=== PATIENT | male | born 1935 | race Caucasian/White ===

== ENCOUNTER → 2017-01-10 | Outpatient (CLI) | payer OTHER | LOC: BHFA 10:15 | PROVIDERS: ATTEND Physician Assistant Medical | DX: I25.810 Atherosclerosis of coronary artery bypass graft(s) without angina pectoris (principal); E78.5 Hyperlipidemia, unspecified; I10 Essential (primary) hypertension ==

== ENCOUNTER → 2017-02-09 | Outpatient (CLI) | payer OTHER | LOC: BHFA 09:00 | PROVIDERS: ATTEND Internal Medicine Cardiovascular Disease | DX: I25.10 Atherosclerotic heart disease of native coronary artery without angina pectoris (principal); R00.2 Palpitations | CPT/HCPCS: 78452; 93017; A9500; J2785 ==

== ENCOUNTER → 2017-02-15 | Outpatient (CLI) | payer OTHER | LOC: BHFA 10:45 | PROVIDERS: ATTEND Internal Medicine Cardiovascular Disease | DX: R07.9 Chest pain, unspecified (principal); R01.1 Cardiac murmur, unspecified; I10 Essential (primary) hypertension; I25.10 Atherosclerotic heart disease of native coronary artery without angina pectoris ==

== ENCOUNTER 2017-02-23 11:46 | Inpatient (IN) | payer OTHER ==
--- NOTE | 2017-02-23 16:02 | SOAPPROG ---
SOAP Progress Note Assessment/Plan: Assessment: 1.) Idiopathic Myelofibrosis, diagnosis Jan, 2017, DIPSS risk category: Intermediate, 2. Bone marrow neg. for [id number] mutation, MPL mutation and calreticulin mutation. Marrow shows significant myelofibrosis. Neg. for BCR/ ABL mutation (NOT CML). He has been started on Hydroxyurea with the intent of use of 500 mg BID until his WBC comes down to 50,000, followed by change in therapy to Ruxolitinib , which has not yet been started. His Platelet count is low at 70-80,000 and will likely stay in this range. He did initially have Hyperuricemia as part of his presentation from increased cell turnover. His anemia is secondary to this disease process, and he is feeling better, post transfusion ( ) likely from more oxygen carrying capacity to supply myocardium. He should be kept on Hydroxyurea 500 mg po BID and Allopurinol 100 mg QD His CKD is noted and may influence Cardiac work up options. Anti-platelet therapy and anti-coagulation with heparin gtt was started at [facility]. Plan: 1.) See above discussion. 2.) Our service will follow. 02/23/17 16:06 Subjective: Pablito has now been transferred today from [facility] inpatient to [facility] inpatient service for Cardiology evaluation regarding his known CAD with recent increased fatigue, JOY and substernal chest "heaviness." These symptoms have improved with his transfusion administered two days ago at [facility]. He reports feeling better today without new sx. Objective: VSS, Afebrile HEENT- pale, anicteric, no oral lesions Neck- supple, no JVD Chest- clear/hyperinflated CVS- RSR, no extra HS, normal S1, S2. ABD- BS+, soft, NT, palp Spleen tip. No ascites, nondistended EXT- without edema/petechiae/ecchymoses Labs : 02/22/17: Hgb 9.8, WBC 136,000, PLT 80, BUN/CR 28/1.7 02/21/17: Hgb 8.7 WBC 122,000 PLT 70 BUN/CR 27/1.94 ICD10 Worksheet Patient Problems: Problems Problem Status Onset NSTEMI (non-ST elevated myocardial infarction) Acute
[2017-02-23] MEDS ORDERED: ONDANSETRON DISINTEGRATING 4 MG TAB PO PRN (16:37)
[2017-02-23] MEDS ORDERED: ACETAMINOPHEN 325 MG TAB PO PRN (16:37)
[2017-02-23] MEDS ORDERED: ONDANSETRON 4 MG/2 ML VIAL IVP PRN (16:37)
--- NOTE | 2017-02-23 17:03 | GHP ---
[f rep st] HISTORY AND PHYSICAL DATE OF ADMISSION: 02/23/2017 CHIEF COMPLAINT: Chest pain. Transfer from [facility]. HISTORY OF PRESENT ILLNESS: This is an 81-year-old male who has history of coronary artery disease. He had bypass surgery just 2 years ago and had multiple stents prior to that. He presented to [facility] with 1 week of exertional chest pain. It did get better when he rested. He was transf used in mid-January and that did not seem to help his symptoms at that time. He does have a history of myeloproliferative disease, which is not CML, but his white blood count is usually in the 60s, and w hen he came in it was over 100. He is being treated. He also has history of chronic renal insuffic iency. 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 He states he did get a blood transfusion 2 days ago and the day afterward did not feel well, and that is when they d ecided to transfer him, but we did not have a bed. However, today he is feeling a lot better, he sa ys. He does not have any exertional chest pain currently. He has some mild dyspnea on exertion. N o cough, fevers or chills. REVIEW OF SYSTEMS: A 10-point review of systems was obtained and, other than as stated above, was n egative. PAST MEDICAL HISTORY: 1. Coronary artery disease, status post multiple stents and then a bypass surgery with THACKER to the LAD 2 years ago. 2. Myeloproliferative disorder, being seen by and followed by Dr. Gilbert. 3. Type 2 diabetes. 4. BPH. 5. Hyperlipidemia. 6. Hypertension. 7. Low testosterone. SOCIAL HISTORY: No smoking or alcohol. Lives with his . Lives in [place]. 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 FAMILY HISTORY: Both parents are . MEDICATIONS: Reviewed. PHYSICAL EXAM: VITAL SIGNS: Afebrile. Blood pressure is 91/52, heart rate in the 50s, oxygen satu ration 91% on room air. GENERAL: The patient is well-developed, in no apparent distress. HEENT: Nonicteric sclerae. Extraocular movements intact. Moist mucous membranes. NECK: Supple. No thyr omegaly. LUNGS: Good effort. Clear to auscultation bilaterally. CARDIOVASCULAR: Regular rate an d rhythm. Soft murmur heard best over the right upper sternal border. ABDOMEN: Positive bowel amy nds. Soft, nontender, nondistended. No hepatosplenomegaly. EXTREMITIES: No clubbing, cyanosis, o r edema. SKIN: Without rash. Dry, intact. NEUROLOGIC: Alert and oriented x3. Moving all 4 extr emities equally. PSYCHIATRIC: Normal mood and affect. LABORATORY DATA: No labs are drawn here. Labs from [facility] are from 02/21 and show a creat inine of 1.9, total bilirubin 1.3, alkaline phosphatase 218. AST and ALT are normal. Troponins hav e been flat at 0.3. I believe an echocardiogram has been done, but I cannot find the report. White blood cell count is 136,000, hemoglobin 9.8 after transfusion. ASSESSMENT: This is an 81-year-old male with possible unstable angina versus chest pain of differen t etiology. PLAN: 1. Rule out unstable angina. The patient's symptoms are a lot better with blood transfusion. His white blood cell count is quite elevated. I do wonder if there might be some effect with his cardia c circulation. He is improved today, but he did not immediately improve with his blood transfusion, so I am not sure if that was the real cause of his improvement. With that said, I agree with Cardi ology and their reluctance to do a heart catheterization considering his elevated creatinine and low platelets chronically. The plan will be to monitor him overnight. I am going to not start heparin on him, and I will have Cardiology evaluate. If he continues to improve or does not have any furth er exertional angina, would probably recommend trial at home and see. We could always do a heart ca theterization at a later time. 2. Chronic myelocytic leukemia. Oncology is following the patient. I discussed the case with Dr. Tyler. 3. Type 2 diabetes. It does not appear that he is on any medication for that. 4. Benign prostatic hypertrophy. Continue medications. 5. Admission. Patient will be admitted under full admission status. Case discussed with Cardiolog y and hospitalist at [facility]. Records from [facility] reviewed and summarized in the H PI. /[id number]/MODL
[2017-02-23] MEDS: CARVEDILOL 6.25 MG TAB PO SCH (18:03)
[2017-02-23] MEDS: HYDROXYUREA 500 MG CAP PO SCH (18:03)
[2017-02-23] MEDS: HEPARIN 5,000 UNIT/0.5 ML SYR SC SCH (20:22)
[2017-02-23] MEDS ORDERED: TAMSULOSIN HCL 0.4 MG CAP PO SCH (21:00)
[2017-02-23] MEDS ORDERED: CYANO/VITAMIN B12 1000 MCG TAB PO SCH (21:00)
[2017-02-23] MEDS ORDERED: FINASTERIDE 5 MG TAB PO SCH (21:00)
[2017-02-23] MEDS ORDERED: SPIRONOLACTONE 25 MG TAB PO SCH (21:00)
[2017-02-23] MEDS ORDERED: ROSUVASTATIN CALCIUM 20 MG TAB PO SCH (21:00)
[2017-02-23] MEDS ORDERED: ASPIRIN 81 MG CHEWABLE TAB PO SCH (21:00)
[2017-02-23] MEDS ORDERED: GABAPENTIN 400 MG CAP PO SCH (21:00)
--- NOTE | 2017-02-23 21:51 | CPEKG ---
Heart Rate: 87 RR Interval: 690 P-R Interval: 164 QRSD Interval: 88 QT Interval: 432 QTC Interval: 520 P [place]: 65 QRS [place]: -67 T Wave [place]: 107 EKG Severity - ABNORMAL ECG - EKG Impression: SINUS RHYTHM EKG Impression: INFERIOR INFARCT, OLD EKG Impression: ANTERIOR INFARCT, AGE INDETERMINATE EKG Impression: PROLONGED QT INTERVAL Electronically Signed By: Lalit Bonner 24-Feb-2017 08:59:16
[2017-02-24 04:38] LABS: ABSOLUTE NRBC COUNT 0.05 10^3/uL (0-0.01); ADD DIFF? YES; ATYPICAL LYMPHOCYTE FLAG 0 (0-99); FRAGMENT RBC FLAG 20 (0-99); HEMATOCRIT 28.1 % (40.0-51.0); HEMOGLOBIN 9.1 g/dL (13.7-17.5); LIPEMIA HEMOLYSIS FLAG 80 (0-99); MEAN CELL HEMOGLOBIN 32.7 pg (27.9-34.1); MEAN CELL HEMOGLOBIN CONCENTR. 32.4 g/dL (32.4-36.7); MEAN CELL VOLUME 101.1 fL (81.5-99.8); MEAN PLATELET VOLUME 13.1 fL (8.7-11.7); PLATELET CLUMPS FLAG 70 (0-99); PLATELET COUNT 86 10^3/uL (150-400); RED BLOOD CELL COUNT 2.78 10^6/uL (4.40-6.38)
[2017-02-24 04:51] LABS: ANION GAP 12 mEq/L (8-16); CARBON DIOXIDE 22 mEq/l (22-31); CHLORIDE 110 mEq/L (97-110); CREATININE 1.7 mg/dL (0.7-1.3); GLUCOSE 79 mg/dL (70-100); POTASSIUM 3.5 mEq/L (3.5-5.2); SODIUM 144 mEq/L (134-144)
[2017-02-24 04:52] LABS: ALANINE AMINOTRANSFERASE 38 IU/L (21-72); ALBUMIN 3.3 g/dL (3.5-5.0); ALKALINE PHOSPHATASE 224 IU/L (38-126); ASPARTATE AMINOTRANSFERASE 32 IU/L (17-59); BILIRUBIN,TOTAL 2.3 mg/dL (0.1-1.4); GLOMERULAR FILTRATION RATE 39; LEFT SHIFT FLG 300 (0-99); RED CELL DISTRIBUTION WIDTH 20.7 % (11.5-15.2); TOTAL PROTEIN 5.4 g/dL (6.3-8.2)
[2017-02-24 04:54] LABS: ADD MORPH? NO
[2017-02-24 04:55] LABS: ADD SCAN? NO
[2017-02-24 04:56] LABS: TROPONIN I 0.249 ng/mL (0-0.034)
[2017-02-24] MEDS: HEPARIN 5,000 UNIT/0.5 ML SYR SC SCH (05:32)
[2017-02-24 05:36] LABS: BILIRUBIN-CONJUGATED 0.3 mg/dL (0.0-0.5)
[2017-02-24 06:43] LABS: PLATELET ESTIMATE DECREASED (ADEQ)
[2017-02-24 06:45] LABS: MACROCYTES 2+; POLYCHROMASIA 1+
[2017-02-24 06:46] LABS: ECHINOCYTES 1+; SCHISTOCYTES 1+
[2017-02-24 07:39] VITALS: BP 111/60; PULSE 74; RESP 20; TEMP 98; O2SAT 91
[2017-02-24] MEDS: CARVEDILOL 6.25 MG TAB PO SCH (09:02)
[2017-02-24] MEDS: ALLOPURINOL 100 MG TAB PO SCH ×2 (09:02→10:58)
[2017-02-24] MEDS: HYDROXYUREA 500 MG CAP PO SCH (09:02)
--- NOTE | 2017-02-24 09:09 | SOAPPROG ---
SOAP Progress Note Assessment/Plan: Assessment/Plan: 81 yo gentleman who is a recent new pt of mine seen for leukocytosis - thought he was going to have typical CML Major underlying medical issues included CAD s/p previous CABG, diabetes, and CKD Bone marrow biopsy shows a myeloproliferative disease (90% cellularity) - been very difficult to classify due to multiple abnormalities on core biopsy BM showed 3+ reticulin fibrosis and initially favored to be primary myelofibrosis However, RECENT mutational analysis on BM this past week demonstrated CSF3R and SETBP1 mutations and he is negative for BCR-ABL, JAK2, MPL, CALR, etc 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, 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 and is not curable outside allogenic stem cell transplant which he is not a candidate for given above co-morbidities Options at this point include continuing Hydrea or possibly Vidaza or low dose cytarabine although response rates are only 15-20% Any treatment runs the risk of cytopenias and we discussed this today Hydrea, etc will be challenging as these medication will certainly drop counts and could cause more demand ischemia I am not concerned about elevated white cell count as this is a chronic leukemia and not acute leukemia; therefore, hyperleukocytosis syndrome typically does not develop unless counts >500,000 For now would like to stay on Hydrea 1000daily; cont allopurinol as well Will try to keep Hgb >9 or 10 given underlying cardiac issues Will cont to follow 02/24/17 08:57 Subjective: No acute events Feeling better today Denies CP Objective: Vital Signs Temp Pulse Resp BP Pulse Ox 36.7 C 74 20 111/60 91 L 02/24/17 07:38 02/24/17 07:38 02/24/17 07:38 02/24/17 07:38 02/24/17 07:38 Laboratory Results 02/24/17 03:45 02/24/17 03:45 02/23/17 02/24/17 02/25/17 05:59 05:59 05:59 Intake Total 600 Balance 600 Gen - NAD HEENT - anicteric CV - RRR Chest - CTA Abd - soft, NT, BS+ Spleen ~3cm below left costal margin Ext - no edema ICD10 Worksheet Patient Problems: Problems Problem Status Onset NSTEMI (non-ST elevated myocardial infarction) Acute
--- NOTE | 2017-02-24 11:44 | GCON ---
[f rep st] CONSULTATION CARDIOLOGY CONSULTATION. The patient was admitted in the hospital for chest pain, and I have been asked to do an evaluation o f him. He was having significant chest discomfort and reported to [facility] last Sunday. W hat he tells me, is that he was admitted to the hospital and then was transferred from [facility] down here. It is a little confusing, I think after being at [facility], he requested transfer here. He h as anterior chest discomfort that was a pressure-like symptom. He has had multiple stents, has had angina for years, and his angina is always a sharp discomfort, this was not the kind of discomfort h e had at this point in time. He does not have orthopnea, PND, dyspnea on exertion. He does not have pleuritic chest pain. He do es not have fever, chills, he has not had a cough, syncope, near syncope. No hot, swollen joints or major rashes. No photophobia, stiff neck. He does not have a sore throat. He has a myeloproliferative disorder and that is a very difficult situation right at this time. How ever, he feels very much like it is his myeloproliferative disease causing this pain, and he feels l bishop there is no pain here that is similar to his angina. He has talked to his oncologist, and at this point in time wants to be discharged home. He is a man who has known coronary artery disease with stenting and coronary bypass grafting. Abnor mal nuclear stress test. He has dyslipidemia. He has arrhythmias. He is followed by Dr. Gusman at [facility]. He has an enlarged thyroid. He has hypertension. He d oes not have atrial arrhythmias or ventricular arrhythmias at this time. He has cardiomyopathy. CARDIAC RISK FACTORS: Positive for known coronary artery disease, stenting, bypass surgery, with a THACKER to the LAD two years ago. Type 2 diabetes mellitus, hypertension, hyperlipidemia. He has no history of smoking, hyperuricemia or obesity. FAMILY HISTORY: He has no family history of premature coronary artery disease. SOCIAL HISTORY: He lives in [place], [place] with his . He is an active gentleman and sees Ana Lilia Gusman. He does not smoke or drink significant amounts of alcohol. REVIEW OF SYSTEMS: A 12-point review of systems is negative except as noted above. Also, one is re ferred to his attached records. He has chronic renal insufficiency. He has chronic anemia, is gett ing multiple transfusions. Among the other problems that he does have on a regular basis are benign prostatic hypertrophy. PAST HISTORY: Positive for what is looking like CML. He has a white count over 150,000, and is fol lowed by Dr. Gilbert. She does not have good medications for him right now. To drop his white cou nt, she can put him on Hydrea, but that drops his hematocrit to below 7 and he gets more angina. I have had a long discussion with her today. ALLERGIES: None noted. SURGICAL HISTORY: Surgical history includes bypass surgery, and the remainder of his surgical histo ry in the chart. PHYSICAL EXAMINATION: VITAL SIGNS: His blood pressure is 95/70, respiratory rate is 12. GENERAL: He is lying comfortably in the hospital bed. He is afebrile. NECK: Supple. CARDIOVASCULAR: S1, S2. Soft systolic murmur at the left sternal border. No diastolic murmur. PULMONARY: Rhonchi. N o rales, wheezing or dullness. ABDOMEN: Soft, nontender, without obvious masses. EXTREMITIES: Without edema, inflammation. NEUROLOGIC: Motor and sensory appear to be intact. PSY CH: No anxiety or depression. SKIN: Age related changes. RESULTS: On his nuclear imaging study of 02/09/2017, he has a large size, severe intensity, fixed, but partially reversible entire apical and anteroseptal defect, consistent with infarct with magali-in farct ischemia. Defect is 25% of the myocardium, the resting defect, stress defect increases to 52% . He has mild to moderate anterior and apical akinesis with moderately impaired thickening. Ejection fraction is 45%. He had a creatinine of 1.9. Liver function tests are normal. Troponins are negative. ASSESSMENT AND PLAN: 1. Coronary artery disease. 2. Chronic myelogenous leukemia. 3. Chest discomfort. He has coronary artery disease, and he has a good idea of what his angina is, he says this is not an amanda that he is having lately, it is because of his myeloproliferative disease. Originally, it was thought that he might have a mild dysplastic syndrome, but my understanding from talking to Oncology , is that in fact he has chronic myelogenous leukemia and he does not have a lot of good options for his treatment. His prognosis is guarded. I have talked to the patient about this and about the possibility that he could be having angina cau sing some of his trouble, however, he wants to go home now. He does not want further testing. He b elieves firmly that this is not due to angina or coronary artery disease, but the chest pain is seco ndary to his myeloproliferative disorder. I think that he probably does have some angina, we know he has significant ischemia, however, his pr ognosis is guarded. He has already had a THACKER, and he does not want to do any further workup for th is right at this time. He does want to follow up with Dr. 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 Lisa byrnes may want to try to consider doing an intervention, but also, I am sure he will talk with Maryann shin, the patient's oncologist, and they can coordinate what they would like to do. I did have a l kassie discussion with Dr. Gilbert today, and she felt like his prognosis is guarded and medical manag ement would be the best option. I certainly think that makes sense at this point in time. We will follow closely. If there are any new issues the patient can call me back. Old records have been reviewed. I discussed this case with the hospitalist as well. /[id number]/MODL
--- NOTE | 2017-02-24 15:35 | GDS ---
[f rep st] DISCHARGE SUMMARY DISCHARGE DIAGNOSES: Include: 1. Atypical CML. 2. Coronary artery disease, status post CABG. 3. Diabetes. 4. Chronic kidney disease. 5. Benign prostatic hypertrophy. 6. Hyperlipidemia. 7. Hypertension. 8. Low testosterone. HISTORY OF PRESENT ILLNESS: An 81-year-old male with a history of coronary artery disease who prese nts with chest pain. For details of the patient's initial presentation, please see the history and physical dated 02/23/2017. CONSULTATIONS: Include Oncology and Cardiology. PROCEDURES: None. HOSPITAL COURSE: 1. Chest pain. The patient has known coronary artery disease, status post CABG. The patient has C KD with an elevated creatinine. We had a coordination of consultants between Hematology/Oncology an d Cardiology. After extensive discussions about the risk of cardiac catheterization, contrast expos ure, and worsening renal function in the context of atypical CML that is not a candidate for treatme nt, the decision has been made to medically manage the patient's coronary artery disease and not pro ceed additional risk stratification or stress testing. 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 2. Atypical CML. He is being very closely followed by his oncologist, Dr. Gilbert, who at this po int with consultation and recent bone marrow has placed the patient on hydroxyurea and allopurinol t o most effectively temper progression of his disease. The patient is aware this is not a treatable condition. He will continue to follow in the outpatient setting with [facility]. DISCHARGE MEDICATIONS: Please reference med rec printed on 02/24/2017. PENDING STUDIES: At the time of this dictation are none. FOLLOWUP: Include with Dr. Espinal and Dr. Gilbert in the next 2-4 weeks. I spent greater than 30 minutes in the planning and coordination of this discharge. /[id number]/MODL
== END 2017-02-24 11:48 | disposition home or self-care (01) | DRG 313 ==
LOC: F2W 13:38 → OBSVTOIN 16:37
PROVIDERS: ADMIT Internal Medicine; ATTEND Internal Medicine
DX: R07.89 Other chest pain (principal); I25.810 Atherosclerosis of coronary artery bypass graft(s) without angina pectoris; C92.10 Chronic myeloid leukemia, BCR/ABL-positive, not having achieved remission; E11.9 Type 2 diabetes mellitus without complications; N40.0 Benign prostatic hyperplasia without lower urinary tract symptoms; Z95.5 Presence of coronary angioplasty implant and graft; I12.9 Hypertensive chronic kidney disease with stage 1 through stage 4 chronic kidney disease, or unspecified chronic kidney disease; E78.5 Hyperlipidemia, unspecified; N18.9 Chronic kidney disease, unspecified

== ENCOUNTER 2017-03-06 12:47 | Inpatient (IN) | payer OTHER ==
[2017-03-06] MEDS ORDERED: ASPIRIN 81 MG CHEWABLE TAB PO ONE (12:56)
[2017-03-06] MEDS ORDERED: NS 500 ML IV ONE (12:56)
[2017-03-06] MEDS ORDERED: NITROGLYCERIN 0.4 MG BTL SL PRN ×2 (12:56→15:15)
--- NOTE | 2017-03-06 13:06 | CPEKG ---
Heart Rate: 95 RR Interval: 632 P-R Interval: 172 QRSD Interval: 80 QT Interval: 360 QTC Interval: 453 P [place]: 61 QRS [place]: -74 T Wave [place]: 100 EKG Severity - ABNORMAL ECG - EKG Impression: SINUS RHYTHM EKG Impression: INFERIOR INFARCT, OLD EKG Impression: ANTERIOR INFARCT, OLD Electronically Signed By: Piyush Golden 06-Mar-2017 22:05:45
--- NOTE | 2017-03-06 13:10 | EDPHY ---
H & P Stated Complaint: Chest Pain x 3 Months HPI/ROS: HPI CHIEF COMPLAINT: Chest Pain HISTORY OF PRESENT ILLNESS: This patient very pleasant 81-year-old male, significant past medical history for new diagnosis of atypical CML, coronary artery disease, bypass surgery, hypertension, hyperlipidemia takes a baby aspirin each day. Presents emergency room with chest pressure something sitting on his chest for the past 24-48 hours. It has gotten worse. He went to [facility] today and had a blood draw and was told to go the emergency room for chest pressure and something sitting on his chest. He has had this intermittently however worse over the last 48 hours. Denies shortness of breath, denies pleuritic pain, denies hemoptysis. Currently upon arrival he does tell me there is a weight sitting on the center of his chest and chest pressure. He denies nausea, diaphoresis, vomiting, numbness or tingling, focal weakness, headache. Denies back pain. Neck pain. Dr. 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 Exam Constitutional appears well nontoxic, triage nursing summary reviewed, vital signs reviewed, awake/alert. Eyes normal conjunctivae and sclera, EOMI, PERRLA. HENT normal inspection, atraumatic, moist mucus membranes, no epistaxis, neck supple/ no meningismus, no raccoon eyes. Respiratory clear to auscultation bilaterally, normal breath sounds, no respiratory distress, no wheezing. Cardiovascular rate normal, regular rhythm, no murmur, no edema, distal pulses normal. Gastrointestinal soft, non-tender, no rebound, no guarding, normal bowel sounds, no distension, no pulsatile mass. Genitourinary no CVA tenderness. Musculoskeletal no midline vertebral tenderness, full range of motion, no calf swelling, no tenderness of extremities, no meningismus, good pulses, neurovascularly intact. Skin pink, warm, & dry, no rash, skin atraumatic. Neurologic awake, alert and oriented x 3, AAOx3, moves all 4 extremities equally, motor intact, sensory intact, CN II-XII intact, normal cerebellar, normal vision, normal speech. Psychiatric normal mood/affect. Heme/Lymph/Immune no lymphadenopathy. 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 Full-dose aspirin given nitroglycerin to see if this improves his chest discomfort. Chest x-ray. Re-evaluation: EKG interpretation by me on record in [email or web address] system. Impression time of EKG 1304, this is sinus rhythm rate of 95, noted Q-waves inferior leads to 3 AVF , noted Q-waves V1 V2 V3. T-wave inversion in aVL. Otherwise no acute ST elevation KS. This is similar morphology to the EKG dated 07/27/2014 however it is changed from morphology 07/28/2014 where on his EKG 07/28/2014 it significant T -wave abnormalities in the anterior chest leads. ED x-ray chest one view: Negative for acute cardiopulmonary disease. Image interpreted by myself. 1359: Is no this patient has an elevated troponin and extremely high BNP that is an acute change from his previous blood work. It Is also noted he has CML. He is at risk for pulmonary embolism. It is possible a pulmonary embolism is causing elevated BNP and troponin media. However unable to obtain a CT angiogram of his chest this time due to his creatinine. He may need a V/Q scan. I specifically asked the hospitalist service that they would like me to heparinize her Lovenox him however at this [place] [id number] so I do not feel that he needs heparin. His creatinine is 1.7. Contraindication to Lovenox. He did receive full-dose aspirin here. Nitroglycerin. The nitroglycerin did not help with his chest pressure. Morphine did improve his pain. I did update the family as well as the patient that he needs to be admitted. Chest x-ray been reviewed and does not show overt failure. Plan for hospital admission to PCU for elevated troponin, elevated BNP. Chest pressure. In the setting of CML. 1401: Dr. Funez with the hospitalist service accepted this patient. Source: Patient, Family - Personal History Current Tetanus/Diphtheria Vaccine: Unsure Current Tetanus Diphtheria and Acellular Pertussis (TDAP): Unsure - Medical/Surgical History Hx Asthma: No Hx Chronic Respiratory Disease: No Hx Diabetes: No Hx Cardiac Disease: Yes Hx Renal Disease: No Hx Cirrhosis: No Hx Alcoholism: No Hx HIV/AIDS: No Hx Splenectomy or Spleen Trauma: No Other PMH: CML, CBG '15 Cardiac Stents, CAD, HTN, nephrolithiasis, BPH - Social History Smoking Status: Former smoker Constitutional: Initial Vital Signs Temperature (C) 36.8 C 03/06/17 12:50 Heart Rate 96 03/06/17 12:50 Respiratory Rate 18 03/06/17 12:50 Blood Pressure 121/73 H 03/06/17 12:50 O2 Sat (%) 96 03/06/17 12:50 O2 Delivery Mode Room Air Allergies/Adverse Reactions: No Known Allergies Allergy (Verified 07/27/14 11:38) Home Medications: Medication Instructions Recorded Cyanocobalamin (Vitamin B-12) 1,000 mcg PO HS 07/08/12 [B-12] Finasteride [Proscar 5 MG (*)] 5 mg PO HS 07/08/12 Rosuvastatin Calcium [Crestor 40mg 20 mg PO HS 07/08/12 (*)] Gabapentin [Neurontin 400 MG (*)] 400 mg PO HS 07/27/14 Herbals/Supplements -Info Only 1 ea PO DAILY 07/27/14 Tamsulosin HCl [Flomax 0.4 MG (*)] 0.4 mg PO HS 07/27/14 Aspirin [Aspirin 81mg (*)] 81 mg PO HS 02/23/17 Carvedilol [Coreg (*)] 6.25 mg PO BIDMEAL 02/23/17 Hydroxyurea [Hydrea 500 mg (*)] 500 mg PO BID 02/23/17 Spironolactone [Aldactone 25 MG 25 mg PO HS 02/23/17 (*)] Testosterone IM [Testosterone 200 mg IM Q14D 02/23/17 100mg/ml IM inj (*)] Allopurinol [Allopurinol 100 MG 100 mg PO DAILY #30 tab 06/03/17 (*)] Medical Decision Making - Diagnostics Imaging Results: Imaging Impressions Chest X-Ray 03/06/17 12:57 Impression: 1. Hypoventilation and minimal bibasilar atelectasis. 2. Stigmata of previous open-heart surgery and cardiac vascular disease. 3. No CHF. - Data Points Laboratory Results: Laboratory Results 03/06/17 13:05 03/06/17 13:05 03/06/17 03/06/17 03/06/17 13:05 13:05 13:05 WBC 111.38 10^3/uL H* 10^3/uL (3.80-9.50) RBC 2.84 10^6/uL L 10^6/uL (4.40-6.38) Hgb 9.3 g/dL L g/dL (13.7-17.5) Hct 28.1 % L % (40.0-51.0) MCV 98.9 fL fL (81.5-99.8) MCH 32.7 pg pg (27.9-34.1) MCHC 33.1 g/dL g/dL (32.4-36.7) RDW 20.0 % H % (11.5-15.2) Plt Count 89 10^3/uL L 10^3/uL (150-400) MPV 11.6 fL fL (8.7-11.7) Neut % (Auto) Not Reported Lymph % (Auto) Not Reported [place] % (Auto) Not Reported Eos % (Auto) Not Reported Baso % (Auto) Not Reported Nucleat RBC Rel Count 0.1 % % (0.0-0.2) Absolute Neuts (auto) Not Reported Absolute Lymphs (auto) Not Reported Absolute Monos (auto) Not Reported Absolute Eos (auto) Not Reported Absolute Basos (auto) Not Reported Absolute Nucleated RBC 0.07 10^3/uL H 10^3/uL (0-0.01) Immature Gran % Not Reported Seg Neutrophils % 83 % % Band Neutrophils % 5 % % Lymphocytes % 3 % % Monocytes % 6 % % Metamyelocytes % 1 % % Myelocytes % 1 % % Promyelocytes % 1 % % Immature Gran # Not Reported Absolute Seg Neuts 92.45 10^/uL H 10^/uL (1.70-6.50) Absolute Band Neuts 5.57 10^3/uL H 10^3/uL (0.00-0.70) Absolute Lymphocytes 3.34 10^3/uL H 10^3/uL (1.00-3.00) Absolute Monocytes 6.68 10^3/uL H 10^3/uL (0.30-0.80) Absolute Metamyelocyte 1.11 10^3/mL H 10^3/mL (0.00-0.00) Absolute Myelocytes 1.11 10^3/mL H 10^3/mL (0.00-0.00) Absolute Promyelocytes 1.11 10^3/uL H 10^3/uL (0.00-0.00) Nucleated RBCs 1 /100 WBC H /100 WBC (0-0) Platelet Estimate DECREASED L (ADEQ) Polychromasia 1+ H Target Cells 1+ H Elliptocytes 1+ H Acanthocytes (Spur) 1+ H Schistocytes 1+ H Smear Review By Pending PT 15.2 SEC H SEC (12.0-15.0) INR 1.20 H (0.83-1.16) APTT 33.2 SEC SEC (23.0-38.0) D-Dimer 2.23 ug/mLFEU H ug/mLFEU (0.00-0.50) Sodium 138 mEq/L mEq/L (134-144) Potassium 4.0 mEq/L mEq/L (3.5-5.2) Chloride 103 mEq/L mEq/L (97-110) Carbon Dioxide 22 mEq/l mEq/l (22-31) Anion Gap 13 mEq/L mEq/L (8-16) BUN 28 mg/dL H mg/dL (7-23) Creatinine 1.7 mg/dL H mg/dL (0.7-1.3) Estimated GFR 39 Glucose 148 mg/dL H mg/dL (70-100) Calcium 9.7 mg/dL mg/dL (8.5-10.4) Magnesium 1.9 mg/dL mg/dL (1.6-2.3) Total Bilirubin 2.2 mg/dL H mg/dL (0.1-1.4) Conjugated Bilirubin 0.4 mg/dL mg/dL (0.0-0.5) Unconjugated Bilirubin 1.8 mg/dL H mg/dL (0.0-1.1) AST 34 IU/L IU/L (17-59) ALT 40 IU/L IU/L (21-72) Alkaline Phosphatase 233 IU/L H IU/L (38-126) Creatine Kinase Pending CK-MB (CK-2) Fraction 1.20 ng/mL ng/mL (0-3.19) Troponin I 0.127 ng/mL H ng/mL (0-0.034) NT-Pro-B Natriuret Pep 67919 pg/mL H pg/mL (0-450) Total Protein 6.6 g/dL g/dL (6.3-8.2) Albumin 4.2 g/dL g/dL (3.5-5.0) Lipase 126.0 IU/L IU/L (23-300) Medications Given: Discontinued Medications Aspirin (Aspirin) 324 mg PO EDNOW ONE Stop: 03/06/17 12:57 Last Admin: 03/06/17 13:12 Dose: 324 mg Sodium Chloride (Ns) 500 mls @ 1,000 mls/hr IV ONCE ONE PRN Reason: Protocol Stop: 03/06/17 13:25 Last Admin: 03/06/17 13:12 Dose: 500 mls Morphine Sulfate (Morphine) 4 mg IVP EDNOW ONE Stop: 03/06/17 13:29 Last Admin: 03/06/17 13:35 Dose: 4 mg Nitroglycerin (Nitrostat) 0.4 mg SL Q5M PRN PRN Reason: Chest Pain Stop: 03/06/17 13:07 Last Admin: 03/06/17 13:18 Dose: 0.4 mg Ondansetron HCl (Zofran) 4 mg IVP EDNOW ONE Stop: 03/06/17 13:29 Last Admin: 03/06/17 13:35 Dose: 4 mg Departure - Departure Disposition: [facility] Acute Clinical Impression: Elevated troponin, CML (chronic myelocytic leukemia) Chest pain Qualifiers: Chest pain type: unspecified Qualified Code(s): R07.9 - Chest pain, unspecified Condition: Good Referrals: KHALIDA CONNORS [Primary Care Provider] - As per Instructions
[2017-03-06 13:11] LABS: ABSOLUTE NRBC COUNT 0.07 10^3/uL (0-0.01); ADD DIFF? YES; ADD MORPH? NO; ATYPICAL LYMPHOCYTE FLAG 0 (0-99); FRAGMENT RBC FLAG 20 (0-99); HEMATOCRIT 28.1 % (40.0-51.0); HEMOGLOBIN 9.3 g/dL (13.7-17.5); LIPEMIA HEMOLYSIS FLAG 80 (0-99); MEAN CELL HEMOGLOBIN 32.7 pg (27.9-34.1); MEAN CELL HEMOGLOBIN CONCENTR. 33.1 g/dL (32.4-36.7); MEAN CELL VOLUME 98.9 fL (81.5-99.8); MEAN PLATELET VOLUME 11.6 fL (8.7-11.7); NRBC-AUTO% 0.1 % (0.0-0.2); PLATELET CLUMPS FLAG 40 (0-99); PLATELET COUNT 89 10^3/uL (150-400); RED BLOOD CELL COUNT 2.84 10^6/uL (4.40-6.38)
[2017-03-06 13:12] LABS: LEFT SHIFT FLG 300 (0-99)
[2017-03-06] MEDS ORDERED: NITROGLYCERIN 0.4 MG BTL SL ONE (13:15)
[2017-03-06 13:17] LABS: ADD SCAN? NO
[2017-03-06 13:25] LABS: INR 1.2 (0.83-1.16); PROTIME(PATIENT) 15.2 SEC (12.0-15.0)
[2017-03-06 13:26] LABS: APTT 33.2 SEC (23.0-38.0)
[2017-03-06] MEDS ORDERED: ONDANSETRON 4 MG/2 ML VIAL IVP ONE (13:28)
[2017-03-06 13:36] LABS: ALANINE AMINOTRANSFERASE 40 IU/L (21-72); ALBUMIN 4.2 g/dL (3.5-5.0); ALKALINE PHOSPHATASE 233 IU/L (38-126); ANION GAP 13 mEq/L (8-16); ASPARTATE AMINOTRANSFERASE 34 IU/L (17-59); BILIRUBIN,TOTAL 2.2 mg/dL (0.1-1.4); BILIRUBIN-CONJUGATED 0.4 mg/dL (0.0-0.5); BILIRUBIN-UNCONJUGATED 1.8 mg/dL (0.0-1.1); CALCIUM 9.7 mg/dL (8.5-10.4); CARBON DIOXIDE 22 mEq/l (22-31); CHLORIDE 103 mEq/L (97-110); CREATININE 1.7 mg/dL (0.7-1.3); GLOMERULAR FILTRATION RATE 39; GLUCOSE 148 mg/dL (70-100); MAGNESIUM 1.9 mg/dL (1.6-2.3); SODIUM 138 mEq/L (134-144); TOTAL PROTEIN 6.6 g/dL (6.3-8.2)
[2017-03-06 13:47] LABS: TROPONIN I 0.127 ng/mL (0-0.034)
[2017-03-06 13:54] LABS: PLATELET ESTIMATE DECREASED (ADEQ)
[2017-03-06 13:56] LABS: ACANTHOCYTES 1+; ELLIPTOCYTES 1+; POLYCHROMASIA 1+; SCHISTOCYTES 1+; TARGET CELLS 1+
[2017-03-06] MEDS ORDERED: TESTOSTERONE IM 100 MG/ML SYRINGE IM SCH (15:15)
[2017-03-06] MEDS ORDERED: ONDANSETRON DISINTEGRATING 4 MG TAB PO PRN (15:18)
[2017-03-06] MEDS ORDERED: ONDANSETRON 4 MG/2 ML VIAL IVP PRN (15:18)
[2017-03-06] MEDS ORDERED: ACETAMINOPHEN 325 MG TAB PO PRN (15:18)
--- NOTE | 2017-03-06 16:17 | GHP ---
[f rep st] HISTORY AND PHYSICAL DATE OF ADMISSION: 03/06/2017 HISTORY OF PRESENT ILLNESS: The patient is a pleasant 81-year-old gentleman with a history of coron nya disease and CABG, and recent diagnosis of chronic myelogenous leukemia, who presents with chest pain. He was admitted to the hospital 2 weeks ago with similar symptom complex where he was found t o have a modestly elevated troponin at 0.25. There was no BNP at that time. Given the complexity o f his current medical situation, medical management was recommended. Apparently he has a positive o n outpatient nuclear stress test, the results of which I do not have access to at this time. Today he had more chest pain. It was described as central in his chest like something sitting on hi s chest. This does differ from his anginal equivalent which previously had been kind of fleeting ac ross his chest. It did not improve with nitroglycerin. It did improve with morphine. It did not r adiate to his arm or jaw. It was not associated with diaphoresis. He has not had a cough or hemopt ysis. Given the nature of his leukemia, he is not at risk for pulmonary stasis at his current level of white count because he does not have blasts. He has not had PND, orthopnea, or lower extremity edema. He has not had fever, chills, or sputum. It is not changed by food. He does not have a diagnosis of GERD. He does not smoke cigarettes or d rink alcohol. REVIEW OF SYSTEMS: Complete 10-point review of systems conducted, negative except as noted in the H PI. PAST MEDICAL HISTORY: 1. Leukemia that is not chronic myelogenous leukemia that essentially is being treated with hydroxy urea. 2. Coronary artery disease with multiple stents and bypass THACKER to the LAD two years ago. 3. BPH. 4. Hyperlipidemia. 5. Hypertension. 6. Low testosterone. SOCIAL HISTORY: No tobacco or alcohol. Lives with his . 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 FAMILY HISTORY: Parents . ALLERGIES: No known drug allergies. MEDICATIONS: Carvedilol, allopurinol, aspirin, vitamin D3, vitamin B12, finasteride, gabapentin, hy droxyurea, isosorbide mononitrate, spironolactone, tamsulosin, testosterone. PHYSICAL EXAM: VITAL SIGNS: Temp 36.8, blood pressure 113/73, pulse 96, now in the 70s. Breathing 18 times per minute. 96% on room air. GENERAL: No acute distress. HEENT: Sclerae anicteric. O ropharynx clear. Mucous membranes moist. NECK: Supple. No lymphadenopathy or JVD. LUNGS: Clear to auscultation bilaterally. HEART: S1, S2 without murmurs. ABDOMEN: Soft, nontender, nondisten ded. LOWER EXTREMITIES: No edema. Calves nontender. SKIN: Without rash. NEUROLOGIC: Grossly n onfocal. 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 There are T-wave inversions in one and L, that are not new. Chest x-ray, interpreted by me, shows no evidence of congestive heart failure. Evidence of previous midline sternotomy. No congestive heart failure. No focal infiltrate. No pneumothorax. There is a little bit of fluid in the right fissure. LABS: White count is 111.4, hematocrit is 28, platelets are 89,000. INR is 1.2. D-dimer is elevat ed 2.2. Sodium 138, potassium 4.0, chloride 103, bicarb 22, BUN 13, creatinine 1.7 (which is new ba umair); glucose 148, total bilirubin is 2.2, alk phosphatase 233. Troponin is 0.127. BNP is 12,50 0. DISCUSSION: I discussed the case with Dr. Maryann Gilbert, his oncologist, as well as Dr. Piyush Marin in the emergency department. ASSESSMENT/PLAN: This is an 81-year-old gentleman with chest pressure, complex medical history. 1. Chest pressure. It does not particularly sound like angina. It sounds like the last strategy h ad been to transfuse him to a hemoglobin of 9 or 10, and his hemoglobin is currently 9. He does not have evidence of dynamic EKG changes and the absence of improvement with nitroglycerin is suggestiv e that it is not angina. Notably he is on long-acting nitrate as well. The chest x-ray does not re veal an obvious cause. I do think the patient is at risk for pulmonary embolism given testosterone therapy and active malignancy. Given his elevated creatinine we cannot perform CT PE, so we will go ahead and do a V/Q scan and lower extremity ultrasounds. I have also ordered an echocardiogram to evaluate his right ventricular pressures. 2. Myeloproliferative disorder. We will continue his hydroxyurea and allopurinol. There is really no fundamental treatment for what is going on with him for his myeloproliferative disorder. 3. Prophylaxis, high risk. Pharmacologic prophylaxis indicated. 4. Coronary artery disease as above. We will continue his medications. I will ask Cardiology to s ee him. DISPOSITION: Observation status. /[id number]/MODL
[2017-03-06] MEDS: CARVEDILOL 6.25 MG TAB PO SCH (17:43)
--- NOTE | 2017-03-06 19:44 | CPEKG ---
Heart Rate: 78 RR Interval: 769 P-R Interval: 180 QRSD Interval: 82 QT Interval: 404 QTC Interval: 461 P [place]: 41 QRS [place]: -65 T Wave [place]: 112 EKG Severity - ABNORMAL ECG - EKG Impression: SINUS RHYTHM EKG Impression: PROBABLE INFERIOR INFARCT, OLD EKG Impression: EXTENSIVE ANTERIOR INFARCT, AGE INDETERMINATE Electronically Signed By: Piyush Golden 06-Mar-2017 22:05:45
[2017-03-06] MEDS: GABAPENTIN 400 MG CAP PO SCH (21:03)
[2017-03-06] MEDS: FINASTERIDE 5 MG TAB PO SCH (21:03)
[2017-03-06] MEDS: TAMSULOSIN HCL 0.4 MG CAP PO SCH (21:03)
[2017-03-06] MEDS: ROSUVASTATIN CALCIUM 40 MG TAB PO SCH (21:04)
[2017-03-06] MEDS: SPIRONOLACTONE 25 MG TAB PO SCH (21:04)
[2017-03-06] MEDS: ISOSORBIDE MONONITRATE 30 MG TAB.SR PO SCH (21:05)
[2017-03-06] MEDS: CYANO/VITAMIN B12 1000 MCG TAB PO SCH (21:06)
[2017-03-06] MEDS: HYDROXYUREA 500 MG CAP PO SCH (21:06)
--- NOTE | 2017-03-06 21:43 | GCON ---
[f rep st] CONSULTATION CARDIOLOGY EVALUATION AND CONSULTATION DATE OF CONSULTATION: 03/06/2017 HISTORY OF PRESENT ILLNESS: The patient is an 81-year-old man with a history of leukemia and williamson ry disease, as well as CABG, well known to me from prior evaluation and treatment. He presents to [facility] with chest discomfort, pressure, and tightness. He was initially evaluated for a urinar y tract infection by his primary care physician in [place]. Ultimately, a history and physical was obtained, which revealed that he had an elevated white count above 100,000, and he was referred to an oncologist in [place], and is being treated with hydroxyurea for that issue. Recently, he has had intermittent chest discomfort, which on Sunday was severe, and rated at 9/10 in severity. He had also associated shortness of breath. He was admitted to the hospital 2 weeks ago with similar symptoms, and was found to have a modestly elevated troponin at that time. BNP was no t performed. His coronary history is pertinent for the fact that he has had stents of his LAD that were placed by in 2011, which were complicated by subacute stent thrombosis treated by Dr. Espinal in 2013, and then his Plavix was again discontinued for a double hernia surgery, resulting in recurrent stent thr ombosis, which required a bypass surgery with THACKER to his LAD, and a vein graft, I believe, to the d iagonal. That procedure was done under the care of Dr. Kapadia on 02/15/2015, which happened to be . He has since done fairly well, in regard to his exercise tolerance until more recentl y, when he has developed a significantly elevated white count. He has not had orthopnea, paroxysmal nocturnal dyspnea or lower extremity edema. He has not had fever, chills or a productive cough. PAST MEDICAL HISTORY: Significant for coronary disease, with multiple stents, complicated by recurr ent subacute stent thrombosis finally treated with bypass in THACKER to the LAD, as I mentioned. He olsen s a history of hyperlipidemia, hypertension, low testosterone, BPH, and leukemia, with elevated whit e count. ALLERGIES: He has no known drug allergies. CURRENT MEDICATIONS: Being reconciled, but include carvedilol, allopurinol, aspirin, vitamin D3, vi tamin B12, finasteride, gabapentin, hydroxyurea, isosorbide mononitrate, spironolactone, tamsulosin, and testosterone. PHYSICAL EXAMINATION: GENERAL APPEARANCE: At the time of my evaluation, the patient feels well and is afebrile. He denies chest pain at the present time. VITAL SIGNS: His blood pressure was 101/4 8, pulse 65 and regular, respirations 16 and unlabored. NECK: Reveals no JVD or carotid bruits. H EART: Reveals a normal S1 and S2, with a murmur consistent with mitral regurgitation. LUNGS: Helen r to auscultation bilaterally, without wheezes, rales or rhonchi. ABDOMEN: Benign, with positive b owel sounds. It is nondistended and nontender. EXTREMITIES: Warm, dry, and well perfused, without significant peripheral edema. LABORATORY DATA: His white count is 111,000, hemoglobin and hematocrit 9.3 and 28.1, with a platele t count of 89. His Coags reveal a PT/INR of 15.2 and 1.20, with a D-dimer of 223. His chemistries reveal a BUN and creatinine of 28 and 1.7, glucose 148, is a nonfasting sample, unconjugated. Bilir ubin is 1.8, alkaline phosphatase is 233. N-terminal proBNP is 12,500, and his troponin I is measur ed at 0.127. His laboratory studies including electrocardiogram reveal normal sinus rhythm, with evidence of prio r inferior infarct, and an old anterior infarct, without acute ST-T abnormalities, other than ST dep ression, and minor T-wave inversion in lead I, as well as aVL. There is poor R-wave progression con sistent with his history of a prior anterior infarct. His echocardiogram, likewise, reveals apical hypokinesis, which has been [facility], and subacute stent thrombosis treatment in 2013. The patient's chest x-ray revealed hypoventilation, and minimal basilar atelectasis, without overt s igns of CHF on this study. There were stigmata of previous open heart surgery and cardiovascular di sease. The test was otherwise unremarkable. IMPRESSION AND PLAN: The patient has a chest pain syndrome that was fairly severe on Sunday, and ma y be related to his elevated white count. He has felt well after previous blood transfusion, especi ally when his hemoglobin was less than 9. His billiard player/oncologist has tried to balance the amou nt of red cells and white cells in his blood with the use of hydroxyurea, and periodic hemoglobin as needed. I think it would be prudent for me to have a discussion tomorrow with his primary care onc ologist to discuss his current clinical situation. I do not think it is prudent to proceed with cor onary intervention, given his history of recurrent stent thrombosis, and the fact that dual-antiplat elet therapy may cause problematic bleeding, given that his platelet count has also been affected by his leukemia. It would be my preference that we avoid doing any form of invasive studies on this g entleman unless an acute myocardial infarction is in progress. Thank you for this consultation, and we will follow with you. /[id number]/MODL
[2017-03-07 04:41] LABS: ABSOLUTE NRBC COUNT 0.05 10^3/uL (0-0.01); ADD DIFF? YES; ADD MORPH? YES; ATYPICAL LYMPHOCYTE FLAG 0 (0-99); FRAGMENT RBC FLAG 20 (0-99); HEMATOCRIT 23.2 % (40.0-51.0); HEMOGLOBIN 7.8 g/dL (13.7-17.5); LIPEMIA HEMOLYSIS FLAG 80 (0-99); MEAN CELL HEMOGLOBIN 33.5 pg (27.9-34.1); MEAN CELL HEMOGLOBIN CONCENTR. 33.6 g/dL (32.4-36.7); MEAN CELL VOLUME 99.6 fL (81.5-99.8); MEAN PLATELET VOLUME 10.9 fL (8.7-11.7); NRBC-AUTO% 0.1 % (0.0-0.2); PLATELET CLUMPS FLAG 30 (0-99); PLATELET COUNT 65 10^3/uL (150-400); RED BLOOD CELL COUNT 2.33 10^6/uL (4.40-6.38)
[2017-03-07 04:58] LABS: LEFT SHIFT FLG 300 (0-99); RED CELL DISTRIBUTION WIDTH 20.2 % (11.5-15.2)
[2017-03-07 05:07] LABS: ANION GAP 9 mEq/L (8-16); CALCIUM 9.2 mg/dL (8.5-10.4); CARBON DIOXIDE 22 mEq/l (22-31); CHLORIDE 107 mEq/L (97-110); CREATININE 1.7 mg/dL (0.7-1.3); GLOMERULAR FILTRATION RATE 39; GLUCOSE 125 mg/dL (70-100); POTASSIUM 4.1 mEq/L (3.5-5.2); SODIUM 138 mEq/L (134-144)
[2017-03-07 05:44] LABS: PLATELET ESTIMATE DECREASED (ADEQ)
[2017-03-07 05:45] LABS: TOXIC GRANULATION PRESENT
[2017-03-07 05:51] LABS: HYPERSEGMENTED NEUTROPHILS 3+; MACROCYTES 1+; MICROCYTES 1+
[2017-03-07 05:52] LABS: ELLIPTOCYTES 1+
[2017-03-07 05:54] LABS: POLYCHROMASIA 1+
[2017-03-07] MEDS: HYDROXYUREA 500 MG CAP PO SCH (07:56)
[2017-03-07] MEDS: CARVEDILOL 3.125 MG TAB PO SCH (07:57)
[2017-03-07] MEDS: CHOLECALCIFEROL VIT D3 1,000 UNITS TAB PO SCH (08:02)
[2017-03-07] MEDS: ASPIRIN 81 MG CHEWABLE TAB PO SCH (08:03)
[2017-03-07] MEDS: ALLOPURINOL 100 MG TAB PO SCH (08:03)
[2017-03-07] MEDS ORDERED: ENOXAPARIN 30 MG/0.3 ML SYR SC SCH (09:00)
[2017-03-07] MEDS ORDERED: Herbals/Supplements -Info Only PO SCH (09:00)
--- NOTE | 2017-03-07 09:15 | ECHO ---
[id number] + + [address] : : [place] [address] : : [phone] + + Adult Echocardiographic Report + ---+ :Name: ZANA KIRBY Grey Date: 03/06/2017 04:12 PM : : Hospital Admission Number: [id number] : :: 1935 Gender: Male Height: 64 in : :Age: 81 yrs Race: WH,White Weight: 152 l b : :Reason For Study: Eval LV Fx : : BSA: 1.7 mete rs2: :History: Hx of CABG, CP, Positive Troponins, Elevated Troponins : + ---+ MMode/2D Measurements \T\ Calculations IVSd: 1.00 cm LVIDd: 5.7 cm FS: 24.5 % Ao root diam: LVPWd: 0.97 cm LVIDs: 4.3 cm EDV(Teich): 3.0 cm 157.8 ml ACS: 1.8 cm ESV(Teich): 82.0 ml EF(Teich): 48.0 % LVLd ap4: 8.0 cm SV(MOD-sp4): EDV(MOD-sp4): 55.0 ml 135.0 ml LVLs ap4: 7.0 cm ESV(MOD-sp4): 80.0 ml EF(MOD-sp4): 40.7 % Normal Measurement Values: + + :LVIDd (3.5-5.7cm) IVSd (0.6-1.1cm) LVPWd (0.6-1.1cm) Aortic Root (2.0-3.7cm)Left Atrium (1.5-4.0cm): :LV Vol(d) (76-115ml) LV Vol(s) (29-48ml) Ejec Fraction (50-65%)PV Clinton (0.6- 1.2m/s) TV Clinton (0.4-1.0m/s) : :MV E Clinton (0.8-1.0m/s)MV A Clinton (0.3-1.0m/s)LVOT Clinton (0.7-1.2m/s) Asc Ao Clinton ( 0.9-1.8m/s) : + + Doppler Measurements \T\ Calculations MV E max clinton: Ao V2 max: AI max clinton: LV V1 max: 112.5 cm/sec 135.7 cm/sec 365.0 cm/sec 103.2 cm/sec MV A max clinton: Ao max PG: AI max P.3 mmHgLV V1 max P.7 cm/sec 7.4 mmHg AI dec slope: 4.3 mmHg MV E/A: 1.1 159.8 cm/sec2 AI P1/2t: 668.9 msec MR max clinton: PA V2 max: TR max clinton: 328.8 cm/sec 90.9 cm/sec 310.7 cm/sec MR max PG: PA max PG: TR max P.6 mmHg 43.2 mmHg 3.3 mmHg RAP systole: 10.0 mmHg RVSP(TR): 48.6 mmHg Left Ventricle The left ventricle is normal in size. There is normal left ventricular wall thickness. Ejection Fraction = 45-50%. There mid inferoseptal, apical and apical lateral hypokineisis. The last echo from [facility] 02/07 there was severe apical hypokinesis. Moderate diastolic dysfunction with elevated LV filling pressures. Right Ventricle The right ventricle is mildly dilated. The right ventricular systolic function is normal. Atria The left atrium is mildly dilated. The right atrium is mildly dilated. Mitral Valve There is mild to moderate focal posterior calcification of the mitral valve. There is no mitral valve stenosis. There is mild mitral regurgitation. Tricuspid Valve There is mild tricuspid regurgitation. Right ventricular systolic pressure is 48mmHg. There is Doppler evidence for mild to moderate pulmonary hypertension. Aortic Valve The aortic valve is trileaflet. Mild Aortic Valve Calcification. There is no aortic stenosis. Mild aortic regurgitation. Pulmonic Valve The pulmonic valve is normal in structure and function. Great Vessels The aortic root is normal size. Pericardium/Pleural There is no pericardial effusion. Conclusion A complete two-dimensional transthoracic echocardiogram was performed (2D, M-mode, Doppler and color flow Doppler). Ejection Fraction = 45-50%. Apical and apical lateral hypokineisis. The last echo from [facility] 02/07 there was severe apical hypokinesis. Moderate diastolic dysfunction with elevated LV filling pressures The left atrium is mildly dilated. There is mild mitral regurgitation. There is mild to moderate focal posterior calcification of the mitral valve. There is mild tricuspid regurgitation. Right ventricular systolic pressure is 48mmHg. There is Doppler evidence for mild to moderate pulmonary hypertension. The aortic valve is trileaflet. Mild Aortic Valve Calcification Mild aortic regurgitation. There is no pericardial effusion. Final Reading Physician: Dr Bouchra Mendez electronically signed on 03/07/2017 09:14 AM Ordering Physician: Dionisio Funez Performed By: Rufino Patel, BEVCS
[2017-03-07] MEDS ORDERED: MAGNESIUM HYDROXIDE 30 ML UDCUP PO PRN (11:06)
[2017-03-07] MEDS ORDERED: BISACODYL 10 MG SUPP PR PRN (11:06)
[2017-03-07] MEDS ORDERED: POLYETHYLENE GLYCOL 3350 17 GM PKT PO PRN (11:06)
[2017-03-07] MEDS ORDERED: LACTULOSE 20 GM/30 ML UDCUP PO PRN (11:06)
[2017-03-07 13:03] LABS: HEMATOCRIT 25.9 % (40.0-51.0); HEMOGLOBIN 8.7 g/dL (13.7-17.5)
[2017-03-07] MEDS ORDERED: HYDROXYUREA 500 MG CAP PO ONE (14:30)
[2017-03-07] MEDS: SENNOSIDES/DOCUSATE SODIUM TAB PO SCH ×2 (15:21→21:49)
--- NOTE | 2017-03-07 16:00 | GCON ---
[f rep st] CONSULTATION REFERRING PHYSICIAN: Marycarmen Gomez MD REASON FOR CONSULTATION: Patient known to me, with underlying atypical CML, admitted for chest pain. HISTORY OF PRESENT ILLNESS: The patient is an 81-year-old gentleman, who is a recent new patient of mine, seen initially for leukocytosis. Initially, felt he was going to have underlying CML. His major underlying medical issues include CAD, status post previous CABG; diabetes; and CKD. Baseline creatinine may be around 1.7. His white count on initial evaluation was about 150,000. Bone marrow biopsy showed a myeloproliferative disease. Bone marrow was hypercellular at 90%. Been very difficult to classify due to multiple abnormalities on core biopsy. His bone marrow showed 3+ reticulin fibrosis, and initially favored to be primary myelofibrosis, however, mutational analysis on bone marrow demonstrated CSF3R and SETBP1 mutations. He is negative for BCR- ABL, JAK2, PML, calreticulin, etc. 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 Unfortunately, patient has now been readmitted to the hospital twice, with recurrent chest pain. He had an abnormal nuclear stress test, and also has an abnormal echocardiogram showing apical hypokinesis. Unfortunately, cath is a risk due to underlying CKD. As far as his atypical CML, we have had him on Hydrea. CML overall is a poor prognosis, and not curable outside allogeneic stem cell transplant. He is not a candidate for this, given above comorbidities. We are trying to control his counts with Hydrea. Unfortunately, this has caused more anemia, which I feel contributes to his chest pain. He is currently on Hydrea 1000 mg daily. I have been trying to keep his hemoglobin above 9 to avoid demand ischemia. Patient was readmitted yesterday 03/06/2017, who presented again with chest pain. BNP is elevated. He describes the chest pain as central, like something sitting on his chest. It did not improve with nitroglycerin, but it does improve with morphine. He denies orthopnea or PND. The BNP was greater than 12 ,000 on admission. He had a lower extremity Doppler showing no acute DVT, and a v/Q scan showing no perfusion defects, and has low probability of a PE. Patient is still on telemetry and pending cardiac evaluation. PAST MEDICAL HISTORY: CAD, status post CABG. This was 2 years ago. BPH, hyperlipidemia, hypertension, low testosterone. Recent diagnosis of atypical CML. He is being treated with hydroxyurea and allopurinol at this time. SOCIAL HISTORY: No tobacco or alcohol. Lives with . FAMILY HISTORY: Parents . ALLERGIES: No known drug allergies. MEDICATIONS: Have been reviewed in EMR. PHYSICAL EXAM: VITAL SIGNS: Today, blood pressure 112/54, pulse is 73, sat ting 94% on room air, temp 37.2. GENERAL: Alert and oriented, not in acute distress, elderly gentleman. HEENT: Anicteric sclerae. Oropharynx is clear. HEART: Regular rate and rhythm. LUNGS: Clear. ABDOMEN: Soft. Mildly enlarged spleen, left costal margin. LOWER EXTREMITIES: No significant edema. NEUROLOGIC: Nonfocal. LABS: Today, show a white count of 91,000; hemoglobin 7.8, on repeat was 8.7; hematocrit 23.2; and platelet count of 65,000. His BMP today shows a creatinine 1.7, which is stable. Total bilirubin slightly up at 2.2, alkaline phosphatase 233. Troponin slightly up at 0.21. BNP has come down to 8780. Echocardiogram done yesterday shows EF of 45% to 50%. Apical and apical lateral hypokinesis, moderate diastolic dysfunction, with elevated LV filling pressures. Left atrium mildly dilated. Mild mitral regurgitation. Mild-to- moderate focal posterior calcification of mitral valve. Right ventricular systolic pressure 48 mmHg. Mild aortic regurgitation. No pericardial effusion. [id number] pulmonary hypertension. All other imaging reports have been discussed in HPI. ASSESSMENT AND PLAN: 81-year-old gentleman with underlying atypical chronic myelogenous leukemia and leukocytosis, who presents for recurrent chest pain. He has underlying known coronary artery disease, status post CABG 2 years ago. Chronic kidney disease, hypertension, hyperlipidemia. 1. Chest pain. Appreciate cardiology evaluation. The patient is on long- acting nitrates, beta-cassi, etc. Seems to be optimally medically managed. Unfortunately, he continues to have chest pain, and it is concerning that he has an abnormality on nuclear stress test, as well as apical hypokinesis on echocardiogram. Nonetheless, I understand catheterization is a risk due to underlying chronic kidney disease and contrast-induced nephrotoxicity as well as concern for anticoagulation w thrombocytopenia. However, if we cannot get a firm diagnosis of chest pain, wonder if the benefits of such procedure outweigh the risks to make a dx. I do not feel that his white count of 100,000 is in anyway related to his chest pain. Typically, hyperleukocytosis syndrome with chronic myelogenous leukemia or atypical chronic myelogenous leukemia, does not develop unless counts are greater than 400,000 or 500,000. Nonetheless, on the off chance this is affecting his cardiac circulation, I have recommend we start to increase Hydrea gradually to 1000 mg daily alternating with 15 mg daily. Certainly, we may run into more issues with anemia. We also may have issues with thrombocytopenia. Would like to keep his hemoglobin above 9 or 10, given underlying cardiac issues. 2. Atypical chronic myelogenous leukemia. Unfortunately, this is not curable outside allogeneic stem cell transplant, and overall has a poor prognosis. Treatments we have available only see response rates about 15% to 20%. Have discussed this case with CBCI, and current recommendation has been to continue Hydrea and possibly consider Vidaza, hypomethylating agent to control his white blood cell counts a little better. Again, he understands the more aggressive we are, the more risk we run causing anemia, thrombocytopenia, affecting his underlying coronary disease. As mentioned above, will increase Hydrea to 1000 mg daily alternating with 1500 mg daily. Continue on low-dose allopurinol, and will watch his counts. I also discussed with him today that given current hemoglobin, would recommend 2 units of packed red blood cells. He understands this could be an ongoing issue needing to be transfusion dependent. Ongoing conversation and prognosis. 3. Other medical issues. 4. Appreciate Internal Medicine. 5. Will continue to follow. /[id number]/MODL MTDD
--- NOTE | 2017-03-07 16:05 | HOSPPROG ---
Hospitalist Progress Note Assessment/Plan: 81 yo M with hx of CML and CAD presenting with recurrent chest pain # chest pain: with recent admission for same about 2 weeks ago, at that time medical management was pursued. Pain continues today--v/q very low prob. Continues to have a mildly elevated trop (also at last admit), though it has been essentially flat. Echo with apical and lateral hypokinesis--not all of which is new. ECG personally reviewed showing e/o old infarct as well as poor RWP as well as TWI lead 1/avl. Pain previously has been present when he has a hgb <9, and today it is 7.8. Also does have hyperleukocytosis and query if this too could be contributing to some demand ischemia. Cardiology remains reluctant to cath, but given continued sxs without other etiology, may be best way to move forward. Will also tranfuse prbcs today if he is amenable. # CAD: as above, had bypass in 2014 and angiogram x 3, last in 2013. ON asa, bb , statin and nitrate. # CML: being treated with hydroxyurea, but wbc remains very high as he has issues with increasing anemia/thrombocytopenia when lowered much more than this. Onc consulted and appreciate their recs, will increase hydroxyurea for now # demar on ckd: for the last couple of weeks creatinine has been 1.7 but typical baseline before that has been closer to 1.3. Will check urine studies and continue to monitor. Again makes decision for cath slightly more complicated. # IP status, will need > 48 hours stay for eval/mgmt of above Patient new to my care. Old records reviewed and summarized as above. Care plan reviewed with cardiology/oncology as above. Further hx obtained from patients family present at bedside. Subjective: no significant overnight events, patient currently continuing to c/ o chest pain that is only alleviated by morphine Objective: Vital Signs Temp Pulse Resp BP Pulse Ox 37.2 C 73 20 112/54 L 94 03/07/17 10:50 03/07/17 10:50 03/07/17 10:50 03/07/17 10:50 03/07/17 10:50 Laboratory Results 03/07/17 12:54 03/07/17 04:16 03/06/17 03/07/17 03/08/17 05:59 05:59 05:59 Intake Total 1100 Balance 1100 PT 15.2 SEC (12.0-15.0) H 03/06/17 13:05 INR 1.20 (0.83-1.16) H 03/06/17 13:05 awake alert anicteric op clear rrr no mrg cta b soft nt nd no cce warm dry well perfused oriented appropriate - Time Spent With Patient Time Spent with Patient: greater than 35 minutes Time Spent with Patient: Greater than 35 minutes spent on this patients care, greater than 50% of time spent counseling, educating, and coordinating care regarding the above mentioned plan. ICD10 Worksheet Patient Problems: Problems Problem Status Onset CML (chronic myelocytic leukemia) Acute Chest pain Acute Elevated troponin Acute NSTEMI (non-ST elevated myocardial infarction) Acute
[2017-03-07] MEDS ORDERED: TEMAZEPAM 15 MG CAP PO PRN (18:15)
[2017-03-07] MEDS: CARVEDILOL 6.25 MG TAB PO SCH (18:16)
--- NOTE | 2017-03-07 19:05 | PDCARPN ---
Cardiology Progress Note Assessment/Plan: Assessment: 1. Recurrent chest pain and elevated troponin in patient with atypical CML and history of coronary disease. He has been admitted twice in the past 2 weeks with recurrent chest discomfort. After careful reflection I think we should do a diagnostic angiogram with provisional bare metal stent in the event we find a lesion amenable to repair. A bare metal stent would require only 30 days of dual antiplatelet therapy. We should be able to do the angiography with less than 40 ml of contrast. Plan: As above. 03/07/17 18:20 Reviewed/Discussed With: hospitalist, multidisciplinary team Objective: Vital Signs (8 Hrs) Temp Pulse Resp BP Pulse Ox 03/07/17 18:16 75 110/57 L 03/07/17 16:30 38.4 C H 92 19 110/55 L 93 Intake/Output (24 Hrs) 03/06/17 03/07/17 03/08/17 05:59 05:59 05:59 Intake Total 1500 Balance 1500 Intake: Oral (ml) 1500 Other: Number of Voids Toilet 10 Number of Stools Toilet 1 Result Diagrams: 03/07/17 12:54 03/07/17 04:16 ICD10 Worksheet Patient Problems: Problems Problem Status Onset CML (chronic myelocytic leukemia) Acute Chest pain Acute Elevated troponin Acute NSTEMI (non-ST elevated myocardial infarction) Acute
[2017-03-07] MEDS: SPIRONOLACTONE 25 MG TAB PO SCH (21:27)
[2017-03-07] MEDS: CYANO/VITAMIN B12 1000 MCG TAB PO SCH (21:27)
[2017-03-07] MEDS: FINASTERIDE 5 MG TAB PO SCH (21:27)
[2017-03-07] MEDS: TAMSULOSIN HCL 0.4 MG CAP PO SCH (21:28)
[2017-03-07] MEDS: ROSUVASTATIN CALCIUM 40 MG TAB PO SCH (21:29)
[2017-03-07] MEDS: GABAPENTIN 400 MG CAP PO SCH (21:30)
[2017-03-07] MEDS: ISOSORBIDE MONONITRATE 30 MG TAB.SR PO SCH (21:30)
[2017-03-08 04:31] LABS: ABSOLUTE NRBC COUNT 0.04 10^3/uL (0-0.01); ADD DIFF? YES; ADD MORPH? NO; ATYPICAL LYMPHOCYTE FLAG 0 (0-99); FRAGMENT RBC FLAG 20 (0-99); HEMATOCRIT 22.3 % (40.0-51.0); HEMOGLOBIN 7.3 g/dL (13.7-17.5); LIPEMIA HEMOLYSIS FLAG 80 (0-99); MEAN CELL HEMOGLOBIN 32.6 pg (27.9-34.1); MEAN CELL HEMOGLOBIN CONCENTR. 32.7 g/dL (32.4-36.7); MEAN CELL VOLUME 99.6 fL (81.5-99.8); MEAN PLATELET VOLUME 12.1 fL (8.7-11.7); PLATELET CLUMPS FLAG 50 (0-99); PLATELET COUNT 68 10^3/uL (150-400); RED BLOOD CELL COUNT 2.24 10^6/uL (4.40-6.38); RED CELL DISTRIBUTION WIDTH 19.9 % (11.5-15.2)
[2017-03-08 04:32] LABS: LEFT SHIFT FLG 300 (0-99)
[2017-03-08 04:42] LABS: INR 1.34 (0.83-1.16); PROTIME(PATIENT) 16.6 SEC (12.0-15.0)
[2017-03-08 04:50] LABS: ANION GAP 9 mEq/L (8-16); CALCIUM 9.3 mg/dL (8.5-10.4); CARBON DIOXIDE 22 mEq/l (22-31); CHLORIDE 106 mEq/L (97-110); CREATININE 1.9 mg/dL (0.7-1.3); GLOMERULAR FILTRATION RATE 34; GLUCOSE 109 mg/dL (70-100); HIGH DENSITY LIPOPROTEIN 26 mg/dL (40-65); POTASSIUM 4.2 mEq/L (3.5-5.2); SODIUM 137 mEq/L (134-144); TRIGLYCERIDE 48 mg/dL (40-150); VERY LOW DENSITY LIPOPROTEINS 9 mg/dL (8-25)
[2017-03-08 04:56] LABS: CHOLESTEROL < 50 mg/dL (140-220); CHOLESTEROL/HDL RATIO 1.92 RATIO (1.00-4.97); LDL/HDL RATIO 0.58 RATIO (1.00-3.64); LOW DENSITY LIPOPROTEIN 15 mg/dL (80-100); NON-HIGH DENSITY LIPOPROTEIN 24 mg/dL (90-129)
[2017-03-08 05:09] LABS: ADD SCAN? YES; SCAN POSITIVE
[2017-03-08 05:25] LABS: ACANTHOCYTES 2+; ELLIPTOCYTES 1+; KERATOCYTES 2+; MACROCYTES 1+; MICROCYTES 2+; SCHISTOCYTES 2+
[2017-03-08 05:44] LABS: PLATELET ESTIMATE DECREASED (ADEQ)
[2017-03-08] MEDS ORDERED: DIAZEPAM 5 MG TAB PO ONE (06:00)
[2017-03-08] MEDS ORDERED: NS 1,000 ML IV ONE (06:00)
[2017-03-08] MEDS ORDERED: diphenhydrAMINE 25 MG CAP PO ONE (06:00)
[2017-03-08] MEDS: ALLOPURINOL 100 MG TAB PO SCH (08:42)
[2017-03-08] MEDS: SENNOSIDES/DOCUSATE SODIUM TAB PO SCH ×2 (08:43→22:49)
[2017-03-08] MEDS: ASPIRIN 81 MG CHEWABLE TAB PO SCH (08:44)
[2017-03-08] MEDS: CHOLECALCIFEROL VIT D3 1,000 UNITS TAB PO SCH (08:44)
[2017-03-08] MEDS: CARVEDILOL 3.125 MG TAB PO SCH (08:45)
[2017-03-08] MEDS ORDERED: NS 1,000 ML IV SCH (08:45)
[2017-03-08] MEDS ORDERED: HYDROXYUREA 500 MG CAP PO SCH (09:00)
--- NOTE | 2017-03-08 09:18 | CPEKG ---
Heart Rate: 64 RR Interval: 938 P-R Interval: 172 QRSD Interval: 86 QT Interval: 420 QTC Interval: 434 P [place]: 50 QRS [place]: -51 T Wave [place]: 125 EKG Severity - ABNORMAL ECG - EKG Impression: SINUS RHYTHM EKG Impression: ATRIAL PREMATURE COMPLEX EKG Impression: PROBABLE INFERIOR INFARCT, OLD EKG Impression: ANTERIOR INFARCT, AGE INDETERMINATE Electronically Signed By: Shay Abreu 09-Mar-2017 16:52:23
[2017-03-08] MEDS ORDERED: MIDAZOLAM 2 MG/2 ML VIAL ONE (13:34)
[2017-03-08] MEDS ORDERED: LIDOCAINE 1% 300 MG/30 ML SDV ONE (13:34)
[2017-03-08] MEDS ORDERED: fentaNYL 100 MCG/2 ML INJ ONE ×2 (13:34→15:50)
[2017-03-08] MEDS ORDERED: IOPAMIDOL (ISOVUE-370) 150 ML BTL IV ONE ×2 (13:35→14:39)
[2017-03-08] MEDS ORDERED: BIVALIRUDIN 250 MG/5 ML VIAL IV ONE (14:23)
[2017-03-08] MEDS ORDERED: HEPARIN 10,000 UNIT/10 ML MDV ONE (14:23)
--- NOTE | 2017-03-08 15:12 | SOAPPROG ---
SUBHASH Progress Note Assessment/Plan: Assessment/Plan: 81 yo man w CAD s/p prior CABG, CKD, HTN and now atypical CML who p/w chest pain 1. Chest pain - appreciate Dr Flaherty; agree w w/u for ischemia although difficult pt given underlying hx of in-stent stenosis abnormal nuclear stress and echo w/u follow up on cath results today 2. Atypical CML - overall poor prognosis due to fact not curative tx outside of transplant which he is not eligible for increased Hydrea yesterday uric acid ok and will d/c allopurinol as expected, counts lower today on hydrea but will see how he does do not feel CP related to blood counts - no significant blasts will monitor Pt and family have been well informed re: pt's disease course and prognosis 3. Cytopenias - needs 2 units blood today 4. Other medical issues - per IM, appreciate help 03/08/17 14:56 03/08/17 15:12 03/08/17 15:17 Subjective: Pt in cath Objective: Vital Signs Temp Pulse Resp BP Pulse Ox 37.2 C 73 14 106/51 L 98 03/08/17 12:00 03/08/17 12:00 03/08/17 12:00 03/08/17 12:00 03/08/17 12:00 Laboratory Results 03/08/17 04:21 03/08/17 04:21 03/07/17 03/08/17 03/09/17 05:59 05:59 05:59 Intake Total 1500 Output Total 800 100 Balance 700 -100 PT 16.6 SEC (12.0-15.0) H 03/08/17 04:21 INR 1.34 (0.83-1.16) H 03/08/17 04:21 Not seen today ICD10 Worksheet Patient Problems: Problems Problem Status Onset CML (chronic myelocytic leukemia) Acute Chest pain Acute Elevated troponin Acute NSTEMI (non-ST elevated myocardial infarction) Acute
[2017-03-08] MEDS ORDERED: CLOPIDOGREL BISULFATE 75 MG TAB ONE (15:57)
[2017-03-08] MEDS ORDERED: CLOPIDOGREL BISULFATE 75 MG TAB PO ONE (16:12)
[2017-03-08] MEDS ORDERED: ATROPINE SULFATE 1 MG/10 ML SYR IVP PRN (16:12)
--- NOTE | 2017-03-08 16:46 | CPEKG ---
Heart Rate: 77 RR Interval: 779 P-R Interval: 184 QRSD Interval: 84 QT Interval: 364 QTC Interval: 412 P [place]: 45 QRS [place]: -65 T Wave [place]: 100 EKG Severity - ABNORMAL ECG - EKG Impression: SINUS RHYTHM EKG Impression: INFERIOR INFARCT, OLD EKG Impression: ANTERIOR INFARCT, OLD Electronically Signed By: Shay Abreu 09-Mar-2017 16:52:06
--- NOTE | 2017-03-08 17:08 | CPIP ---
[f rep st] INVASIVE CARDIAC PROCEDURE DATE OF PROCEDURE: 03/08/2017 PROCEDURE PERFORMED: 1. Selective coronary angiography. 2. Coronary catheterization. 3. Non selective left internal mammary artery angiography to the left anterior descending. 4. Selective saphenous vein graft angiography to the right coronary artery. 5. Percutaneous transluminal coronary angioplasty and stent placement of the left anterior descendi ng, diagonal with the use of a 3.0 x 12 Rebel stent, which is a bare metal stent, and will require d ual antiplatelet therapy for a minimum of 30 days post implant. 6. Angio-Seal arteriotomy repair, right femoral approach. COMPLICATIONS: None. INDICATIONS/APPROPRIATE USE CRITERIA: The patient has evidence of unstable angina with elevated tro ponin and intermittent chest discomfort at rest consistent with CCS class IV symptoms of angina. Th e patient has known history of coronary disease and prior history of subacute stent thrombosis x2, w ith drug-eluting stents, and also has additional complication of atypical CML leukemia with elevated white count, decreased red blood cell and platelet count. PROCEDURE IN DETAIL: After informed consent was obtained, n.p.o. status was confirmed. The region of the right groin was entered with a micropuncture set, exchanged for a 6-Mauritanian sheath. The patie nt then underwent the previously mentioned diagnostic procedures with the use of JL4, JR4 THACKER saturnino ter and a 6-Mauritanian 375 EBU guiding catheter. Standard wire exchange technique was utilized for all catheter exchanges. The left main coronary lumen is approximately 6 mm in size and bifurcates into an LAD and circumflex system. The circumflex is a large vessel, approximately 4 mm in size and is dominant, giving rise to the posterior descending vessel posteriorly. There is NAVEEN-3 flow throughout the circumflex. Th e LAD is obstructed after the 1st septal and proximal to previously placed overlapping stents within the LAD territory. At the level of the proximal end of the occluded stents, there is ghosting of a diagonal, which is known to be relatively generous in size, with NAVEEN-1 flow and an associated thro mbus, consistent with the cause for the patient's acute coronary syndrome. Selective angiography of the subclavian with a blood pressure cuff inflated on the left arm demonstr ated the THACKER to the LAD, distal to the occluded stents was widely patent with NAVEEN-3 flow to the di stal vessel. THACKER catheter was then used to perform angiography of the saphenous vein graft to the right coronary, which appears to be a nondominant vessel, which is widely patent with NAVEEN-3 flow. The right coronary artery proper is occluded proximally. Because of the patient's chest pain syndro me and the findings of angiography, we proceeded with an attempt at intervention. 375 6-Mauritanian EBU catheter was used for guide catheter support. A 1.5 balloon and Research Methods Instructor 50 wire, along with a 6-Frenc h Guidezilla catheter, were advanced into the proximal LAD. Ultimately, a Research Methods Instructor 150 wire was used t o cross the chronic total occlusion of the LAD just proximal to the occluded stents and was placed i nto the diagonal. The 1.5 x 12 balloon was then used to exchange for a 0.014 wiggle wire. The vess el was then ballooned with a 2.75 x 12 regular angioplasty balloon, followed by stent implantation w ith a 3.0 x 12 Rebel bare metal stent with 20% residual stenosis and NAVEEN-3 flow into the LAD diagon al post procedure. IMPRESSION: 1. Successful balloon angioplasty and stent implantation of MAILER and thrombotic near occlusion with 99% obstruction of the LAD diagonal repaired with a bare metal stent, which will require dual antipl atelet therapy with aspirin 81 mg and Plavix 75 mg to complete at least 30 days of therapy. Of note is that this procedure was performed to palliate against recurrent chest pain with presentation to the hospital for recurrent and severe chest pain with associated elevations in troponin. 2. A total of 90 mL of contrast was utilized. The patient will require hydration and tracking of h is creatinine given his history of acute and chronic renal insufficiency, which was a known risk xander or to beginning the procedure. /[id number]/MODL
[2017-03-08] MEDS ORDERED: ASPIRIN EC 81 MG TAB PO ONE (17:09)
[2017-03-08] MEDS: HYDROCODONE/APAP 5/325 TAB PO PRN ×2 (18:32→22:56)
[2017-03-08] MEDS: CARVEDILOL 6.25 MG TAB PO SCH (18:35)
--- NOTE | 2017-03-08 18:54 | HOSPPROG ---
Hospitalist Progress Note Assessment/Plan: * Unstable angina - unrelenting CP with troponin elevation and abnormal stress -despite high risk given multiple comorbidities, cardiac cath necessary -s/p bare metal stent LAD -30 days anti-platelet tx * Anemia -d/w Dr. Gilbert - transfuse 2 units PRBC today -transfusion dependent * CML - poor prognosis - not transplant candidate -increase hydroxyurea * CAD/CABG/stents * CKD - recent new baseline 1.7 -IVF post IV contrast * Thrombocytopenia -DC Lovenox prophylaxis Subjective: No complaints immediately post cath Objective: Vital Signs Temp Pulse Resp BP Pulse Ox 36.6 C 80 16 102/52 L 94 03/08/17 16:00 03/08/17 18:35 03/08/17 16:00 03/08/17 18:35 03/08/17 16:00 Laboratory Results 03/08/17 04:21 03/08/17 04:21 03/07/17 03/08/17 03/09/17 05:59 05:59 05:59 Intake Total 1500 Output Total 800 100 Balance 700 -100 PT 16.6 SEC (12.0-15.0) H 03/08/17 04:21 INR 1.34 (0.83-1.16) H 03/08/17 04:21 EKG viewed, my personal interpretation is - NSR, no ischemic change - Physical Exam Constitutional: no apparent distress, appears nourished, not in pain Cardiovascular: regular rate and rhythym, no murmur, rub, or gallop Respiratory: no respiratory distress, no rales or rhonchi, clear to auscultation Gastrointestinal: normoactive bowel sounds, soft, non-tender abdomen, no palpable masses Skin: no rashes or abrasions, no fluctuance, no induration Neurologic: AAOx3, sensation intact bilaterally Psychiatric: interacting appropriately, not anxious, not encephalopathic, thought process linear ICD10 Worksheet Patient Problems: Problems Problem Status Onset CML (chronic myelocytic leukemia) Acute Chest pain Acute Elevated troponin Acute NSTEMI (non-ST elevated myocardial infarction) Acute
[2017-03-08] MEDS: FINASTERIDE 5 MG TAB PO SCH (22:47)
[2017-03-08] MEDS: ISOSORBIDE MONONITRATE 30 MG TAB.SR PO SCH (22:48)
[2017-03-08] MEDS: GABAPENTIN 400 MG CAP PO SCH (22:48)
[2017-03-08] MEDS: TAMSULOSIN HCL 0.4 MG CAP PO SCH (22:48)
[2017-03-08] MEDS: SPIRONOLACTONE 25 MG TAB PO SCH (22:48)
[2017-03-08] MEDS: ROSUVASTATIN CALCIUM 40 MG TAB PO SCH (22:48)
[2017-03-08] MEDS: CYANO/VITAMIN B12 1000 MCG TAB PO SCH (22:49)
[2017-03-09 04:26] LABS: ABSOLUTE NRBC COUNT 0.02 10^3/uL (0-0.01); ADD DIFF? YES; ADD MORPH? NO; ATYPICAL LYMPHOCYTE FLAG 0 (0-99); FRAGMENT RBC FLAG 70 (0-99); HEMATOCRIT 27.3 % (40.0-51.0); HEMOGLOBIN 9.1 g/dL (13.7-17.5); LIPEMIA HEMOLYSIS FLAG 80 (0-99); MEAN CELL HEMOGLOBIN 32.3 pg (27.9-34.1); MEAN CELL HEMOGLOBIN CONCENTR. 33.3 g/dL (32.4-36.7); MEAN CELL VOLUME 96.8 fL (81.5-99.8); MEAN PLATELET VOLUME 13.3 fL (8.7-11.7); PLATELET CLUMPS FLAG 10 (0-99); PLATELET COUNT 59 10^3/uL (150-400); RED BLOOD CELL COUNT 2.82 10^6/uL (4.40-6.38)
[2017-03-09 04:40] LABS: LEFT SHIFT FLG 180 (0-99)
[2017-03-09 04:42] LABS: ADD SCAN? NO
[2017-03-09 04:51] LABS: ANION GAP 9 mEq/L (8-16); ASPARTATE AMINOTRANSFERASE 51 IU/L (17-59); BILIRUBIN,TOTAL 1.8 mg/dL (0.1-1.4); CARBON DIOXIDE 21 mEq/l (22-31); CHLORIDE 107 mEq/L (97-110); CREATININE 1.7 mg/dL (0.7-1.3); GLOMERULAR FILTRATION RATE 39; GLUCOSE 97 mg/dL (70-100); LACTATE DEHYDROGENASE 1015 IU/L (313-618); MAGNESIUM 2.1 mg/dL (1.6-2.3); POTASSIUM 4.2 mEq/L (3.5-5.2); SODIUM 137 mEq/L (134-144)
[2017-03-09 05:54] LABS: ACANTHOCYTES 2+; ELLIPTOCYTES 1+; HYPERSEGMENTED NEUTROPHILS 1+; PLATELET ESTIMATE DECREASED (ADEQ); SCHISTOCYTES 1+
[2017-03-09] MEDS ORDERED: HYDROXYUREA 500 MG CAP PO SCH (09:00)
[2017-03-09] MEDS ORDERED: CLOPIDOGREL BISULFATE 75 MG TAB PO SCH (09:00)
[2017-03-09] MEDS: SENNOSIDES/DOCUSATE SODIUM TAB PO SCH (09:03)
[2017-03-09] MEDS: ASPIRIN 81 MG CHEWABLE TAB PO SCH (09:03)
[2017-03-09] MEDS: CHOLECALCIFEROL VIT D3 1,000 UNITS TAB PO SCH (09:04)
[2017-03-09] MEDS: ALLOPURINOL 100 MG TAB PO SCH (09:04)
[2017-03-09] MEDS: CARVEDILOL 3.125 MG TAB PO SCH (09:04)
[2017-03-09] MEDS: HYDROCODONE/APAP 5/325 TAB PO PRN (09:12)
--- NOTE | 2017-03-09 09:15 | CPEKG ---
Heart Rate: 64 RR Interval: 938 P-R Interval: 168 QRSD Interval: 84 QT Interval: 408 QTC Interval: 421 P [place]: 49 QRS [place]: -61 T Wave [place]: 121 EKG Severity - ABNORMAL ECG - EKG Impression: SINUS RHYTHM EKG Impression: LAD, CONSIDER LAFB OR INFERIOR INFARCT EKG Impression: ANTERIOR INFARCT, AGE INDETERMINATE Electronically Signed By: Shay Abreu 09-Mar-2017 16:51:57
[2017-03-09 11:30] VITALS: BP 112/51; PULSE 64; RESP 17; TEMP 97.2; O2SAT 90
--- NOTE | 2017-03-09 12:52 | SOAPPROG ---
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 Chest pain - appreciate Dr Flaherty cath yesterday showed 99% occlusion of LAD; bare metal stent placed and now on dual anti-platelet therapy for at least 30 days CP has resolved 2. Atypical CML - overall poor prognosis due to fact not curative tx outside of transplant which he is not eligible for on Hydrea alternating w 1000mg/1500mg daily uric acid ok as discussed w pt, counts may be lower on higher dose of Hydrea but will see how he dose s/p 2 units PRBCs on 03/08/17 will need to watch for bleeding on dual anti-platelet therapy; off lovenox Pt and family have been well informed re: pt's disease course and prognosis 3. Cytopenias - follow up in my office next week for CBC 4. Other medical issues - per IM, appreciate help 03/09/17 12:49 03/09/17 12:54 Subjective: CP resolved today s/p cath and BMS denies bleeding has been up and OOB Objective: Vital Signs Temp Pulse Resp BP Pulse Ox 36.2 C 64 17 112/51 L 90 L 03/09/17 11:20 03/09/17 11:20 03/09/17 11:20 03/09/17 11:20 03/09/17 11:20 Laboratory Results 03/09/17 04:06 03/09/17 04:06 03/08/17 03/09/17 03/10/17 05:59 05:59 05:59 Intake Total 1500 1460 Output Total 800 675 Balance 700 785 PT 16.6 SEC (12.0-15.0) H 03/08/17 04:21 INR 1.34 (0.83-1.16) H 03/08/17 04:21 Gen - NAD HEENT - anicteric CV - RRR Chest- CTAB ext - R groin without hematoma ICD10 Worksheet Patient Problems: Problems Problem Status Onset CML (chronic myelocytic leukemia) Acute Chest pain Acute Elevated troponin Acute NSTEMI (non-ST elevated myocardial infarction) Acute
--- NOTE | 2017-03-09 15:45 | PDCARPN ---
Cardiology Progress Note Chief Complaint: Patient reports chest pressure is gone. Feeling well today. Assessment/Plan: Assessment: 81-year-old male with significant history of CAD, CABG, hypertension, hyperlipidemia, anemia, CML, renal insufficiency. Admitted for unstable angina and elevated troponin levels. Echocardiogram done on 03/07/2017 showing EF 45-50 % with apical and apical lateral hypokinesis, mildly dilated LA, mild MR, mild TR, RVSP 48 mmHg. Transfusion 2 units of PRBCs on 03/08. Underwent coronary catheterization by Dr. Paez yesterday found to have a 99% obstruction LAD diagonal. BMS implantation 3 0 x 20 Rebel. No complication. Started on anti platelet therapy aspirin and clopidogrel. Overnight, patient reporting no episodes of chest pain or shortness of breath. He has remained in sinus rhythm with occasional premature ventricular contraction, no malignant arrhythmias. Plan: 1. NSTEMI: Status post PCI in diagonal, reporting no further episodes of chest pressure pain. Up in walking the unit with no difficulty. Due to his anemia thrombocytopenia, BMS stent implantation., with ideal of stopping clopidogrel in 6 weeks. Continue on ASA. Continue on home dosage of carvedilol , isosorbide. 2. Hyperlipidemia: Continue on current dose of Crestor. 3. Hypertension: Well controlled on current medication, no changes. 4. CML: Follow up with Dr. Cruz in as an outpatient. Repeat blood work at her office this week. 5. 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 Repeat lab work next week. Patient planning to be discharged today. Post PCI instructions went over with patient and family, they verbalize understanding. Patient has been encouraged to continue following up Oncology as planned. Patient will also follow up in our office next week. 03/09/17 15:42 Subjective: Patient denies of any chest pressure, pain, orthopnea, PND, lightheadedness, palpitations near syncope or syncopal events. Reviewed/Discussed With: family (Patient's , son, and daughter.), hospitalist (Dr. Martinez), other (Dr Paez) Objective: Vital Signs (8 Hrs) Temp Pulse Resp BP Pulse Ox 03/09/17 11:20 36.2 C 64 17 112/51 L 90 L 03/09/17 07:45 36.8 C 66 18 98/52 L 92 Intake/Output (24 Hrs) 03/08/17 03/09/17 03/10/17 05:59 05:59 05:59 Intake Total 1500 1460 Output Total 800 675 Balance 700 785 Intake: Oral (ml) 1500 560 IV Intake (ml) 300 Packed Red Blood Cells ( 600 ml) Output: Urine (ml) 800 675 Toilet 500 Urinal 300 675 Other: Number of Voids Toilet 3 1 Urinal 2 Number of Stools Toilet 1 Result Diagrams: 03/09/17 04:06 03/09/17 04:06 - Physical Exam Constitutional: WDWN, no apparent distress Ears, Nose, Mouth, Throat: moist mucous membranes Cardiovascular: regular rate and rhythm, systolic murmur (2/6 along left sternal border), pulses symmetric bilat, No jugular vein distention, No carotid bruit Peripheral Pulses: 1+: dorsalis-pedis (R), dorsalis-pedis (L), 2+: carotid (R), carotid (L) Respiratory: other (Lungs clear, diminished in bases bilateral, no rhonchi rales or wheezes noted. No accessary muscle use, no intercostal muscle retraction noted.) Gastrointestinal: normoactive bowel sounds Skin: warm, no edema, other (Right groin site, catheter insertion site, with no redness, swelling, drainage, ecchymosis, or hematoma. No auscultated bruit.) Neurologic: AAOx3 Psychiatric: cooperative, interactive, following commands ICD10 Worksheet Patient Problems: Problems Problem Status Onset NSTEMI (non-ST elevated myocardial infarction) Acute Chest pain Acute Elevated troponin Acute CML (chronic myelocytic leukemia) Acute
--- NOTE | 2017-03-09 15:58 | PDPCPN ---
Palliative Care Progress Note Assessment/Plan: Referring provider: Dr Martinez Reason for consult: Complex medical decision making Symptom control HPI: Pablito Altamirano is a 81 yo male with PMH CAD, CABG, and recently dx CML admitted to the hospital with chest pain. Recent admission to the hospital 2 weeks ago for similar issue treated medically due to his underlying CML. S/p cardiac cath this hospitalization with 99% occlusion of the LAD s/p stent placement. Palliative care consulted for complex medical decision making. Met with daughter, son, and at the bedside this afternoon. Pablito state he is ready to go home. He feels pretty good and almost back to his baseline. The family is planning on looking over the advanced directives they have already filled out at home. They will bring this into [facility] at their next appointment. They follow with Dr Gilbert and they have plans to continue to discuss overall prognosis and time line of life expectancy. We discussed code status and they would not want aggressive life prolonging measures at the end of life but Pablito stated he told the hospital he would want to be resuscitated if "we needed to save his life". Discussed resuscitation is often not successful and this should be a continued conversation with Dr Gilbert. Pablito was ready to go home so conversation was limited. MOST form given out and explained to review. Assessment: Physical: - Pain: chest pain resolved - tylenol PRN - on gabapentin 400mg QHS - norco PRN Emotional/psychological: doing ok with lots of support from family Advanced Care Planning: Is patient decisional?: Yes Code Status: Full- needs to be readdress with Dr Vladimir BARAJAS POA: unsure who is MDPOA. family has paperwork. Plan: Home today with family. Will follow up with Dr Gilbert about prognosis/ life expectancy. MOST form given to review. Subjective: I'm ready to go home Objective: Social History: . 1 son and 1 daughter involved. Medication list reviewed ROS: General: fatigue ENT: negative Resp: negative GI: negative : negative MS: negative Skin: negative Neuro: negative Psych: negative Functional assessment: PPS: 70% Functional status: independent ADLs, IADLs Vital Signs Temp Pulse Resp BP Pulse Ox 36.2 C 64 17 112/51 L 90 L 03/09/17 11:20 03/09/17 11:20 03/09/17 11:20 03/09/17 11:20 03/09/17 11:20 Laboratory Results 03/09/17 04:06 03/09/17 04:06 03/08/17 03/09/17 03/10/17 05:59 05:59 05:59 Intake Total 1500 1460 Output Total 800 675 Balance 700 785 PT 16.6 SEC (12.0-15.0) H 03/08/17 04:21 INR 1.34 (0.83-1.16) H 03/08/17 04:21 Physical Exam - Physical Exam General Appearance: alert, no apparent distress Respiratory: No respiratory distress, No accessory muscle use Skin: normal color, warm/dry Extremities: No pedal edema Neuro/Psych: alert, oriented x 3 ICD10 Worksheet Patient Problems: Problems Problem Status Onset CML (chronic myelocytic leukemia) Acute Chest pain Acute Elevated troponin Acute NSTEMI (non-ST elevated myocardial infarction) Acute Palliative care encounter Acute - ICD10 Problem Qualifiers (1) Palliative care encounter
--- NOTE | 2017-03-09 17:12 | GDS ---
[f rep st] DISCHARGE SUMMARY DISCHARGE DIAGNOSES: 1. Non-ST elevation myocardial infarction, status post stent to the LAD. 2. Chronic myelogenous leukemia. 3. Coronary artery disease, status post previous CABG and stents. 4. Chronic kidney disease. Baseline creatinine 1.7. 5. Anemia and thrombocytopenia. HISTORY: The patient is an 81-year-old male with an extensive history of coronary artery disease, i ncluding previous CABG and multiple previous stents. He also, unfortunately, has CML that has been progressive despite treatment. Prognosis is poor from a CML standpoint. It is not curative as he i s not a candidate for a transplant. He has been having recurrent admissions to the hospital for tanika [address] pain. We have attempting medical management given his underlying malignancy and high risk status for catheterization. Eventually after extensive discussions regarding the high risk nature of this procedure, the decision was made in conjunction with Cardiology to move forward with cardiac cathet erization. He was found to have a 99% occlusion of the LAD. A bare-metal stent was placed, and aft er the procedure, patient has complete resolution of chest pain. He will need to remain on dual ant iplatelet therapy for 6 weeks. This is going to be a high risk situation given his chronic thromboc ytopenia, and platelets are 59 at discharge. The patient is aware of his poor prognosis regarding m alignancy. Dr. Gilbert has been following, his primary oncologist. His Hydrea was increased to 10 00 mg alternating with 1500 mg daily. She will follow CBCs closely as an outpatient. He got 2 unit s transfused during this hospitalization. DISCHARGE MEDICATIONS: Please see computerized record for full detailed list. New medication: 1. Plavix 75 mg p.o. daily. This should continue for 6 weeks, and then he can go to aspirin alone. 2. Hydroxyurea increased to 1000 mg alternating with 1500 mg every other day. ADDITIONAL DISCHARGE INSTRUCTIONS: 1. Post cardiac catheterization discharge instructions. 2. Follow up with Dr. Hernandez Paez. 3. Follow up with Dr. Gilbert of Oncology for close outpatient monitoring of CBC. Greater than 30 minutes' time was spent arranging this discharge. Patient seen and examined by me buzz gallegos the day of discharge. /[id number]/MODL
[2017-03-20] MEDS ORDERED: TESTOSTERONE IM 100 MG/ML SYRINGE IM SCH (15:45)
== END 2017-03-09 15:49 | disposition home or self-care (01) | DRG 249 ==
LOC: INTOOBSV 13:58 → F2W 14:40 → OBSVTOIN 03-07 16:22
PROVIDERS: ADMIT Internal Medicine; ATTEND Internal Medicine
PROC: B2161ZZ Fluoroscopy of Right and Left Heart using Low Osmolar Contrast (ICD-10-PCS; principal; 2017-03-07)
PROC: 4A023N7 Measurement of Cardiac Sampling and Pressure, Left Heart, Percutaneous Approach (ICD-10-PCS; principal; 2017-03-07)
PROC: 02703DZ Dilation of Coronary Artery, One Artery with Intraluminal Device, Percutaneous Approach (ICD-10-PCS; principal; 2017-03-07)
PROC: B2121ZZ Fluoroscopy of Single Coronary Artery Bypass Graft using Low Osmolar Contrast (ICD-10-PCS; principal; 2017-03-07)
PROC: B2151ZZ Fluoroscopy of Left Heart using Low Osmolar Contrast (ICD-10-PCS; principal; 2017-03-07)
PROC: B2181ZZ Fluoroscopy of Left Internal Mammary Bypass Graft using Low Osmolar Contrast (ICD-10-PCS; principal; 2017-03-07)
PROC: 30233N1 Transfusion of Nonautologous Red Blood Cells into Peripheral Vein, Percutaneous Approach (ICD-10-PCS; 2017-03-08)
DX: I21.4 Non-ST elevation (NSTEMI) myocardial infarction (principal); I25.110 Atherosclerotic heart disease of native coronary artery with unstable angina pectoris; C93.10 Chronic myelomonocytic leukemia not having achieved remission; N17.9 Acute kidney failure, unspecified; N18.9 Chronic kidney disease, unspecified; D64.9 Anemia, unspecified; D69.6 Thrombocytopenia, unspecified; I10 Essential (primary) hypertension; E78.5 Hyperlipidemia, unspecified; N40.0 Benign prostatic hyperplasia without lower urinary tract symptoms; Z95.1 Presence of aortocoronary bypass graft; Z95.5 Presence of coronary angioplasty implant and graft; Z79.82 Long term (current) use of aspirin; Z87.891 Personal history of nicotine dependence; Z51.5 Encounter for palliative care; Z87.442 Personal history of urinary calculi
CPT/HCPCS: 96374; A9540; A9558; C1725; C1760; C1769; C1876; C1887; G0378; J0583; J1071; J1644; J1650; J2250; J3010; P9016; Q9967

== ENCOUNTER → 2017-06-07 | Outpatient (CLI) | payer OTHER | LOC: BHLMT 08:30 | PROVIDERS: ATTEND Internal Medicine Cardiovascular Disease | DX: R07.9 Chest pain, unspecified (principal); I25.10 Atherosclerotic heart disease of native coronary artery without angina pectoris | CPT/HCPCS: 78452; 93017; A9500; J2785 ==

== ENCOUNTER 2017-06-08 16:12 | Inpatient (IN) | payer OTHER ==
--- NOTE | 2017-06-08 16:22 | EDPHY ---
H & P Time Seen by Provider: 06/08/17 16:22 - Medical/Surgical History Hx Asthma: No Hx Chronic Respiratory Disease: No Hx Diabetes: No Hx Cardiac Disease: Yes Hx Renal Disease: No Hx Cirrhosis: No Hx Alcoholism: No Hx HIV/AIDS: No Hx Splenectomy or Spleen Trauma: No Other PMH: CML, CBG '15 Cardiac Stents "05, "06, "08, "09, CAD, HTN, nephrolithiasis, BPH, NC x2 - Social History Smoking Status: Former smoker Constitutional: Initial Vital Signs Temperature (C) 36.7 C 06/08/17 16:37 Heart Rate 108 H 06/08/17 16:37 Respiratory Rate 16 06/08/17 16:37 Blood Pressure 146/78 H 06/08/17 16:37 O2 Sat (%) 90 L 06/08/17 16:37 O2 Delivery Mode Room Air Allergies/Adverse Reactions: No Known Allergies Allergy (Verified 07/27/14 11:38) Home Medications: Medication Instructions Recorded Finasteride [Proscar 5 MG (*)] 5 mg PO HS 07/08/12 Rosuvastatin Calcium [Crestor 40mg 20 mg PO HS 07/08/12 (*)] Gabapentin [Neurontin 400 MG (*)] 400 mg PO HS 07/27/14 Herbals/Supplements -Info Only 1 ea PO DAILY 07/27/14 Tamsulosin HCl [Flomax 0.4 MG (*)] 0.4 mg PO HS 07/27/14 Aspirin [Aspirin 81mg (*)] 81 mg PO DAILY 02/23/17 Testosterone IM [Testosterone 200 mg IM Q14D 02/23/17 100mg/ml IM inj (*)] Allopurinol [Allopurinol 100 MG 100 mg PO DAILY #30 tab 02/24/17 (*)] Carvedilol [Coreg (*)] 3.125 mg PO DAILY 03/06/17 Carvedilol [Coreg (*)] 6.25 mg PO DAILY@18 03/06/17 Cholecalciferol Vit D3 [Vitamin D3 5,000 units PO DAILY 03/06/17 (*)] Isosorbide Mononitrate [Imdur 30 30 mg PO HS 03/06/17 mg (*)] Nitroglycerin [Nitrostat 0.4 mg 0.4 mg SL Q5M PRN 03/06/17 (*)] Hydroxyurea [Hydrea 500 mg (*)] 1,000 mg PO Q2D #30 cap 03/09/17 Hydroxyurea [Hydrea 500 mg (*)] 500 mg PO Q2D 06/08/17 Ranolazine [RANEXA 500mg (RX)] 500 mg PO BID 06/08/17 Medical Decision Making - Diagnostics Imaging Results: Imaging Impressions Chest X-Ray 06/08/17 16:39 Impression: Stable negative chest. Imaging: Discussed imaging studies w/ child care development specialist Radiologist, I viewed and interpreted images myself ED Course/Re-evaluation: CHIEF COMPLAINT: Chest pain HISTORY OF PRESENT ILLNESS: The patient is an 81 y/o male with CAD and leukemia who complains of chest pain , onset around 10:00 today (6.5 hours ago). He has an extensive history of 3 stents and a CABG. He also complains of shortness of breath and feeling lethargic since the pain began. The pain is located in the mid-sternal region of his chest. He took one nitroglycerin earlier today for his chest pain. Denies nausea, abdominal pain, paresthesias, fever or other pertinent symptoms. REVIEW OF SYSTEMS: A 10 point review of systems was performed and is negative with the exception of the elements mentioned in the history of present illness. PHYSICAL EXAM: HR, BP, O2 Sat, RR. Temp noted General Appearance: Alert, well hydrated, appropriate, and non-toxic appearing. Head: Atraumatic without scalp tenderness or obvious injury Eyes: Pupils equal, round, reactive to light and accommodation, EOMI, no trauma , no injection. Ears: Clear bilaterally, no perforation, normal landmarks Nose: Atraumatic, no rhinorrhea, clear. Throat: Mucus membranes moist. Neck: Supple, 2+ carotid upstroke, nontender, no lymphadenopathy. Respiratory: No retractions, no distress, no wheezes, and no accessory muscle use. Lungs are clear to auscultation bilaterally. Cardiovascular: Regular rate and rhythm, no murmurs, rubs, or gallops. Good capillary refill all extremities. Gastrointestinal: Abdomen is soft, nontender, non-distended, no masses, no rebound, no guarding, no peritoneal signs. Musculoskeletal: Normal active ROM of all extremities, atraumatic. Neurological: Alert, appropriate, and interactive. Non-focal neuro. Skin: Ecchymosis on chest from leukemia treatment. No rashes, good turgor, no nodules on palpation. Past medical history: CAD, leukemia, hypertension Past surgical history: CABG, 3 stents Family history: Denies Social history: at bedside, lives in [employer], former smoker DIAGNOSTICS/PROCEDURES/CRITICAL CARE TIME: The 12 lead EKG was interpreted by myself sinus mechanism, with pseudonormalization of the anterior septal leads with a rate of 115. See hard copy and/or "tracemaster" electronic copy for interpretation. DIFFERENTIAL DIAGNOSIS: The differential diagnosis for the patient's chest pain included but was not limited to myocardial ischemia, pulmonary embolus, chest wall pain, pleural inflammation, and pulmonary infectious causes. MEDICAL DECISION MAKING: The patient is an 81 y/o male who presents with chest pain for the past 6.5 hours. I am concerned of pseudonormalization of his anterior EKG leads. Plan on EKG, labs, chest x-ray, and aspirin. 1641: Spoke with hospitalist service, Dr. Gomez accepts admission of this patient for acute coronary syndrome. 1653: The patients chest pain has resolved; he will not be administered nitroglycerin at this time. 1716: Consulted with Lanie from [facility] regarding the patients chest pain and subsequent admission. 1719: Patient has elevated white blood cells secondary to his leukemia as well as thrombocytopenia. 1730: The patient also has elevated troponin which could be due to renal insufficiency or acute coronary syndrome. 1731: Consulted with Dr. Espinal, firer boiler, regarding the patients chest pain and elevated troponin. - Data Points Laboratory Results: Laboratory Results 06/08/17 16:41 06/08/17 16:41 06/08/17 06/08/17 06/08/17 16:41 16:41 16:41 WBC 298.15 10^3/uL H* 10^3/uL (3.80-9.50) RBC 2.73 10^6/uL L 10^6/uL (4.40-6.38) Hgb 9.2 g/dL L g/dL (13.7-17.5) Hct 27.9 % L % (40.0-51.0) MCV 102.2 fL H fL (81.5-99.8) MCH 33.7 pg pg (27.9-34.1) MCHC 33.0 g/dL g/dL (32.4-36.7) RDW 20.5 % H % (11.5-15.2) Plt Count 16 10^3/uL L* 10^3/uL (150-400) MPV TNP Neut % (Auto) Not Reported Lymph % (Auto) Not Reported [place] % (Auto) Not Reported Eos % (Auto) Not Reported Baso % (Auto) Not Reported Nucleat RBC Rel Count 0.3 % H % (0.0-0.2) Absolute Neuts (auto) Not Reported Absolute Lymphs (auto) Not Reported Absolute Monos (auto) Not Reported Absolute Eos (auto) Not Reported Absolute Basos (auto) Not Reported Absolute Nucleated RBC 0.79 10^3/uL H 10^3/uL (0-0.01) Immature Gran % Not Reported Seg Neutrophils % 77 % % Band Neutrophils % 4 % % Lymphocytes % 3 % % Monocytes % 5 % % Metamyelocytes % Not Reported Myelocytes % 3 % % Promyelocytes % 3 % % Blast Cells % 7 % % Immature Gran # Not Reported Absolute Seg Neuts 229.58 10^/uL H 10^/uL (1.70-6.50) Absolute Band Neuts 11.93 10^3/uL H 10^3/uL (0.00-0.70) Absolute Lymphocytes 8.94 10^3/uL H 10^3/uL (1.00-3.00) Absolute Monocytes 14.91 10^3/uL H 10^3/uL (0.30-0.80) Absolute Metamyelocyte 8.94 10^3/mL H 10^3/mL (0.00-0.00) Absolute Myelocytes 8.94 10^3/mL H 10^3/mL (0.00-0.00) Absolute Promyelocytes 8.94 10^3/uL H 10^3/uL (0.00-0.00) RBC/WBC/PLT Morphology NORMAL (NORMAL) Absolute Blast Cells 20.87 10^3/uL H 10^3/uL (0.00-0.00) Platelet Estimate DECREASED L (ADEQ) Smear Review By Pending PT 15.7 SEC H SEC (12.0-15.0) INR 1.25 H (0.83-1.16) APTT 32.0 SEC SEC (23.0-38.0) Sodium 143 mEq/L mEq/L (134-144) Potassium 2.9 mEq/L L mEq/L (3.5-5.2) Chloride 103 mEq/L mEq/L (97-110) Carbon Dioxide 26 mEq/l mEq/l (22-31) Anion Gap 14 mEq/L mEq/L (8-16) BUN 20 mg/dL mg/dL (7-23) Creatinine 2.2 mg/dL H mg/dL (0.7-1.3) Estimated GFR 29 Glucose 92 mg/dL mg/dL (70-100) Calcium 9.4 mg/dL mg/dL (8.5-10.4) Troponin I 1.050 ng/mL H ng/mL (0.000-0.034) NT-Pro-B Natriuret Pep 57947 pg/mL H pg/mL (0-450) Medications Given: Discontinued Medications Aspirin (Aspirin) 324 mg PO EDNOW ONE Stop: 06/08/17 16:38 Last Admin: 06/08/17 16:48 Dose: 324 mg Departure - Departure Disposition: [facility] Inpatient Acute Clinical Impression: Acute coronary syndrome, Thrombocytopenia Elevated white blood cell count Qualifiers: Leukocytosis type: other Qualified Code(s): D72.828 - Other elevated white blood cell count Condition: Fair Report Scribed for: Pranav Mares Report Scribed by: Helena Pfeiffer Date of Report: 06/08/17 Time of Report: 16:23
--- NOTE | 2017-06-08 16:26 | CPEKG ---
Heart Rate: 115 RR Interval: 522 P-R Interval: 160 QRSD Interval: 84 QT Interval: 336 QTC Interval: 465 P [place]: 73 QRS [place]: -70 T Wave [place]: 134 EKG Severity - ABNORMAL ECG - EKG Impression: SINUS TACHYCARDIA WITH IRREGULAR RATE 94-161 EKG Impression: PROBABLE INFERIOR INFARCT, OLD EKG Impression: ANTERIOR INFARCT, OLD Electronically Signed By: Pranav Mares 08-Jun-2017 20:35:31
[2017-06-08] MEDS ORDERED: NITROGLYCERIN/DEXTROSE 250 ML IV ONE (16:37)
[2017-06-08] MEDS ORDERED: ASPIRIN 81 MG CHEWABLE TAB PO ONE (16:37)
[2017-06-08 16:55] LABS: ABSOLUTE NRBC COUNT 0.79 10^3/uL (0-0.01); ADD DIFF? YES; ATYPICAL LYMPHOCYTE FLAG 0 (0-99); FRAGMENT RBC FLAG 20 (0-99); HEMATOCRIT 27.9 % (40.0-51.0); HEMOGLOBIN 9.2 g/dL (13.7-17.5); LIPEMIA HEMOLYSIS FLAG 80 (0-99); MEAN CELL HEMOGLOBIN 33.7 pg (27.9-34.1); MEAN CELL VOLUME 102.2 fL (81.5-99.8); NRBC-AUTO% 0.3 % (0.0-0.2); RED BLOOD CELL COUNT 2.73 10^6/uL (4.40-6.38)
[2017-06-08 16:57] LABS: ADD MORPH? NO; LEFT SHIFT FLG 300 (0-99); PLATELET CLUMPS FLAG 100 (0-99); RED CELL DISTRIBUTION WIDTH 20.5 % (11.5-15.2)
[2017-06-08 17:07] LABS: INR 1.25 (0.83-1.16); PROTIME(PATIENT) 15.7 SEC (12.0-15.0)
[2017-06-08 17:15] LABS: ANION GAP 14 mEq/L (8-16); CALCIUM 9.4 mg/dL (8.5-10.4); CARBON DIOXIDE 26 mEq/l (22-31); CHLORIDE 103 mEq/L (97-110); CREATININE 2.2 mg/dL (0.7-1.3); GLOMERULAR FILTRATION RATE 29; GLUCOSE 92 mg/dL (70-100); POTASSIUM 2.9 mEq/L (3.5-5.2); SODIUM 143 mEq/L (134-144)
[2017-06-08 17:18] LABS: PLATELET COUNT 16 10^3/uL (150-400)
[2017-06-08 17:19] LABS: ADD SCAN? NO
[2017-06-08 17:25] LABS: PLATELET ESTIMATE DECREASED (ADEQ)
[2017-06-08] MEDS ORDERED: ONDANSETRON 4 MG/2 ML VIAL IVP PRN (18:20)
[2017-06-08] MEDS ORDERED: ACETAMINOPHEN 325 MG TAB PO PRN (18:20)
[2017-06-08] MEDS ORDERED: PROMETHAZINE HCL 25 MG/ML INJ IVP PRN (18:20)
[2017-06-08] MEDS ORDERED: ONDANSETRON DISINTEGRATING 4 MG TAB PO PRN (18:20)
[2017-06-08] MEDS ORDERED: oxyCODONE IR 5 MG TAB PO PRN (18:20)
[2017-06-08] MEDS ORDERED: ALBUTEROL 3 ML DEYVIAL IH PRN (18:20)
[2017-06-08] MEDS ORDERED: POTASSIUM CL 20 MEQ/15 ML UDCUP PO ONE (18:28)
[2017-06-08] MEDS ORDERED: NITROGLYCERIN/D5W 50 MG/250 ML BOTTLE IV ONE (19:50)
[2017-06-08] MEDS ORDERED: *HTN PROTOCOL*NITROGLYCERIN/DEXTR IV SCH (20:00)
[2017-06-08] MEDS ORDERED: *ANGINA PROTOCOL*NITROGLYCERIN/DEXTR IV SCH (20:00)
[2017-06-08] MEDS ORDERED: ROSUVASTATIN CALCIUM 40 MG TAB PO SCH (21:00)
[2017-06-08] MEDS: ISOSORBIDE MONONITRATE 30 MG TAB.SR PO SCH (21:07)
[2017-06-08] MEDS: GABAPENTIN 400 MG CAP PO SCH (21:07)
[2017-06-08] MEDS: FINASTERIDE 5 MG TAB PO SCH (21:07)
[2017-06-08] MEDS: ROSUVASTATIN CALCIUM 10 MG TAB PO SCH (21:07)
[2017-06-08] MEDS: RANOLAZINE 500 MG TAB.ER PO SCH (21:08)
[2017-06-08] MEDS: TAMSULOSIN HCL 0.4 MG CAP PO SCH (21:08)
--- NOTE | 2017-06-09 00:12 | GHP ---
[f rep st] HISTORY AND PHYSICAL DATE OF ADMISSION: 06/08/2017 CHIEF COMPLAINT: Chest pain. HISTORY: This is an 81-year-old man with past medical history of CML, as well as coronary artery dis ease with associated chronic anginal chest pain, who presents with worsening chest pain. The patient was seen by Dr. Espinal, his endoscopy technician, two days prior to admission. At that time he was told jax t he has a likely occluded previously placed bare metal stent and was started on Ranexa for medical m anagement. He notes that with both the Ranexa and nitroglycerin, he has been largely able to control his pain, but that today, the pain was significantly more than usual. This morning, it began, and h e was able to take a nitroglycerin, which relieved it, but then it came back shortly thereafter. Aga in, it was calmed in the hospital, but even getting up to remove his clothes led to recurrent chest p ain. He has also been having issues with increasingly zlegxhorp-ag-objnbe leukemia with his white bl ood cell counts increasing and the treatment of Hydrea leading to worsening anemia and thrombocytopen ia. He denies any shortness of breath. He denies any pain. He denies any nausea or vomiting. PAST MEDICAL HISTORY: 1. Coronary artery disease, status post multiple stents with in-stent stenoses and MD x2. 2. CML. 3. Hypertension. 4. BPH. 5. Hyperlipidemia. 6. Diastolic heart failure. 7. Chronic kidney disease. PAST SURGICAL HISTORY: CABG. FAMILY HISTORY: Father of heart disease at age 62. SOCIAL HISTORY: The patient has remote tobacco use history. He drinks alcohol rarely. 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 REVIEW OF SYSTEMS: 10-point review of systems obtained and negative, except as per HPI. MEDICATIONS: 1. Ranolazine. 2. Cholecalciferol. 3. Carvedilol. 4. Aspirin. 5. Allopurinol. 6. Nitroglycerin. 7. Isosorbide mononitrate. 8. Hydroxyurea. 9. Gabapentin. 10. Proscar. 11. Testosterone. 12. Tamsulosin. 13. Rosuvastatin. ALLERGIES: No known drug allergies. PHYSICAL EXAMINATION: VITAL SIGNS: BP 101/51, heart rate 84, respiratory rate 95% on 2 L , temperature is 37.0. GENERAL APPEARANCE: Well-developed, well-nourished man who is awake and aler t. He is in no acute distress. EYES: Anicteric. HENT: Oropharynx clear. CARDIOVASCULAR: Distant, regular, no MRG. PULMONARY: CTA bilaterally. Normal work of breathing. ABDOMEN: Soft, nontender. Positive bowel sounds. EXTREMITIES: No clubbing, cyanosis, or edema. S KIN: Warm dry well perfused. NEURO/PSYCH: Oriented and appropriate, pleasant. CLINICAL DATA: Labs reviewed, significant for white blood cell count of 298, hematocrit 27.9, platel ets of 16. Chemistry is notable for potassium of 2.9, creatinine of 2.2, with a baseline of approxim ately 1.7. Troponin initially 1.05; on repeat, decreased to 0.98. ProBNP 13,900. Chest x-ray, personally reviewed and interpreted, shows no acute findings. EKG, personally reviewed and interpreted, shows sinus tach with an irregular rate and an old inferior infarct, as well as old anterior infarct. ASSESSMENT/PLAN: This is an 81-year-old man with past medical history of CML and coronary artery dis ease, presenting with chest pain concerning for acute coronary syndrome. 1. Chest pain/acute coronary syndrome, patient presenting with elevated troponin in the setting of w hat sounds concerning for unstable angina. He is a very challenging patient with multiple active com orbidities, including worsening CML. Attempts at medical management have been limited in success. T he patient will be continued on his Ranexa and isosorbide mononitrate, also has been started on nitro drip for ongoing worsening pain with even limited exertion. Cardiology has been consulted. The pat ient will be very high risk for any sort of intervention, with a platelet count of 16 and chronic kid rakesh disease, with perhaps only limited expected benefit. Currently, pain is now controlled, and his troponin at least initially has begun to trend down. 2. CML. This does seem to be accelerating. His white count has jumped from 55,000 to now 298,000. He has been treated with renally-adjusted Hydrea, but this treatment comes at the expense of worseni ng anemia and thrombocytopenia. In reviewing notes from prior hospitalization, it is felt to be a po or prognosis, and again, with this seemingly accelerated course, likely portends an even worse progno sis. Oncology has been consulted. Will hold off on transfusing platelets at this point, given no ev idence of active bleeding. Will continue current doses of Hydrea for the time being. Although white count is very high, in review of last oncology note, this is not felt to be likely high enough to be able to cause hyperleukocytosis-driven chest pain, so suspect that this is not the underlying etiolo gy for his acute presentation. 3. Acute kidney injury on chronic kidney disease, again in the setting of worsening leukemia, as wel l as suspected acute coronary syndrome. He has been given some intravenous fluids. Will hold off on any further, given his congestive heart failure unless he becomes hypotensive. Renally dosing meds and avoiding nephrotoxins. 4. Chronic diastolic heart failure in patient with preserved ejection fraction on last echocardiogra m of 45% to 50%. He does not appear grossly decompensated, although his proBNP is significantly elev ated at 13,900. Again, cardiology is following. 5. Hypokalemia. Will replete cautiously, given his underlying renal function. Will recheck in the morning. 6. Disposition: Inpatient status, given multiple active comorbid conditions, all putting the patien t at high risk. 7. The patient is new to my care. The care plan will be reviewed with Cardiology. Old records revi ewed and summarized as per HPI and Past Medical History. 8. Code status. He is full code. At his last hospitalization, it was recommended that he be seen b y Palliative Care, who did evaluate him, but at this time, there have been no changes made. Again, h is prognosis is likely poor. /[id number]/MODL
[2017-06-09 05:10] LABS: ABSOLUTE NRBC COUNT 0.59 10^3/uL (0-0.01); ADD DIFF? YES; ATYPICAL LYMPHOCYTE FLAG 0 (0-99); FRAGMENT RBC FLAG 20 (0-99); HEMATOCRIT 25.3 % (40.0-51.0); HEMOGLOBIN 8.1 g/dL (13.7-17.5); LIPEMIA HEMOLYSIS FLAG 80 (0-99); MEAN CELL HEMOGLOBIN 33.6 pg (27.9-34.1); NRBC-AUTO% 0.2 % (0.0-0.2); PLATELET CLUMPS FLAG 50 (0-99); RED BLOOD CELL COUNT 2.41 10^6/uL (4.40-6.38)
[2017-06-09 05:15] LABS: ADD MORPH? NO; LEFT SHIFT FLG 300 (0-99); RED CELL DISTRIBUTION WIDTH 20.2 % (11.5-15.2)
[2017-06-09 05:18] LABS: ADD SCAN? YES; PLATELET COUNT 14 10^3/uL (150-400)
[2017-06-09 05:41] LABS: ALANINE AMINOTRANSFERASE 29 IU/L (21-72); ALBUMIN 3.2 g/dL (3.5-5.0); ALKALINE PHOSPHATASE 401 IU/L (38-126); ANION GAP 13 mEq/L (8-16); ASPARTATE AMINOTRANSFERASE 37 IU/L (17-59); BILIRUBIN,TOTAL 2.2 mg/dL (0.1-1.4); CALCIUM 8.9 mg/dL (8.5-10.4); CARBON DIOXIDE 26 mEq/l (22-31); CHLORIDE 107 mEq/L (97-110); CREATININE 2.1 mg/dL (0.7-1.3); GLOMERULAR FILTRATION RATE 30; GLUCOSE 65 mg/dL (70-100); POTASSIUM 3.1 mEq/L (3.5-5.2); SODIUM 146 mEq/L (134-144)
[2017-06-09 06:18] LABS: PLATELET ESTIMATE DECREASED (ADEQ)
[2017-06-09 06:20] LABS: MACROCYTES 1+; POLYCHROMASIA 1+
[2017-06-09 06:21] LABS: ACANTHOCYTES 1+; ELLIPTOCYTES 1+; TOXIC GRANULATION PRESENT
[2017-06-09 06:55] LABS: BILIRUBIN-CONJUGATED 0.5 mg/dL (0.0-0.5); BILIRUBIN-UNCONJUGATED 1.7 mg/dL (0.0-1.1)
[2017-06-09] MEDS ORDERED: HYDROXYUREA 500 MG CAP PO SCH (09:00)
[2017-06-09] MEDS ORDERED: CARVEDILOL 3.125 MG TAB PO SCH (09:00)
[2017-06-09] MEDS: ASPIRIN 81 MG CHEWABLE TAB PO SCH (09:53)
[2017-06-09] MEDS: RANOLAZINE 500 MG TAB.ER PO SCH ×2 (09:53→20:20)
[2017-06-09] MEDS: ALLOPURINOL 100 MG TAB PO SCH (09:53)
--- NOTE | 2017-06-09 10:56 | ASMTCMCOM ---
CM Note CM Note Notes: Pt. is an 81-year-old man admitted w/ chest pain. Pt. has acute coronary syndrome. Hx. diastolic heart failure, CAD, hyperlipidemia, HTN, CML, BPH and chronic kidney disease. PT is recommending home d/c at this time although Pt's heart condition appears to be worsening per H&P. Pt. has had Palliative consult in past. Pt. has a son Dionisio listed in [employer]. CM available should d/c POC change. Date Signed: 06/09/2017 10:55 AM Electronically Signed By:Leigh Gilbert LCSW
--- NOTE | 2017-06-09 12:18 | GCON ---
[f rep st] CONSULTATION HISTORY OF PRESENT ILLNESS: The patient has a history of chest pain. The patient has a history of significant coronary artery disease. He has had a chronic problem with restenosis, and it has occurred many times eventually leading him to coronary artery bypass surgery. He has also had restenosis since that time in other vessels. He has seen Dr. Espinal this week for o ngoing chest discomfort, and the cause of that chest discomfort was thought to be ischemia. He has n o ischemia on a nuclear stress test that Dr. Espinal did. The patient himself is getting chest pain when he wanders around. He has had his medications changed , and it has not changed recently. The pain has not improved recently. He has no orthopnea, PND, dyspnea on exertion. He has not had pleuritic chest pain. He has chest tightness, and it is worse with exertion. He has no history of syncope or near syncope. He has no hot swollen joints or major rashes. He is not having trouble with bleeding, has no focal neurologic deficits. He is not complaining of p alpitations. He has no history of rheumatic disease. He has cardiac risk factors positive for hypertension, hyperlipidemia, known coronary artery disease, history of myocardial infarction, hypertension, hyperlipidemia. He has no family history of premature coronary disease. He does have a history of gout. No history of smoking. He is not obese. PAST SURGICAL HISTORY: Status post coronary artery bypass grafting. FAMILY HISTORY: His family has no history of early coronary artery disease. SOCIAL HISTORY: He was born in [place] and worked for [employer] for over 32 ye ars, is retired now. Does not smoke. Does not drink a significant amount of alcohol and tries to be active. REVIEW OF SYSTEMS: A 12-point review of systems was negative except as noted above. MEDICATIONS: At home include nitroglycerin, allopurinol, aspirin, carvedilol, cholecalciferol, ranol azine. Medications include isosorbide, gabapentin, testosterone, tamsulosin, rosuvastatin. ALLERGIES: He has no problem taking drugs and has no known drug allergies. PHYSICAL EXAMINATION: VITAL SIGNS: His blood pressure is 105/70, heart rate 67, respiratory rate 12 . GENERAL: He is lying comfortably in a hospital bed. HEENT: Pupils are equal and reactive. NECK : Supple. CARDIOVASCULAR: S1, S2. Soft systolic murmur, left sternal border. No diastolic murmur . No S3, S4. No rubs. PULMONARY: Rhonchi. No rales, wheezing, or dullness. No increased AP diam eter. No prolonged expiration. ABDOMEN: Soft, nontender. Without masses. CVA: No tenderness. E XTREMITIES: No edema, inflammation, or ulceration. NEUROLOGIC: Cranial nerves 2-12 are grossly nor mal. Motor and sensory are intact. ASSESSMENT AND PLAN: 1. Coronary artery disease. 2. Chronic angina. 3. Dyslipidemia. 4. Hypertension. 5. History of myocardial infarction, multiple. 6. Chronic kidney disease. 7. History of diastolic heart failure. 8. Status post coronary artery bypass grafting. The patient at this point in time has significant anemia. His troponin came in at 1.05 and then drop ped to 0.98. His BNP is 13,900. The chest x-ray shows no significant changes, showed stable negative chest. His EKG shows inferior and anterior infarction, diffuse ST-T changes, and sinus tachycardia. He has had a recent nuclear stress test this week in our office, which shows old infarction with new ischemia in the magali-infarction area. I have discussed him with my partner, Dr. Espinal, who has seen him earlier this week. He has a long history of stenting, and his most recent stent may well have occluded. We are treating him medically for his coronary artery disease. It is believed that he would not bene fit from further cath or further intervention on his coronary arteries. Our primary effort is to try to increase his medical therapy, and I have increased his Coreg to 6.25 in the morning from 3.125 in the morning, and currently he is taking 6.25 in the evening. He is on r anolazine, and he is walking around the [place] this morning an hour after I saw him in the room, and he is not having chest pain, so we are going to try to wean his nitroglycerin this afternoon and see ho w he does with pain. Obviously, we can take him to the boot and shoe laborer at any time. There is not an acute coronary syndrome right now. There is not worsened heart failure of significance. He has ongoing si gnificant bad vascular disease that does not respond well to interventions. I have discussed this with the hospitalist. He will get ongoing care and treatment and education for his hypertension, for his blood pressure, an d for his exercise. We will try to get him into cardiac rehab as soon as possible as that may also b enefit him when things go down the line here. Also counterpulsation therapy may be available to help him if he continues to have pain. All his questions have been answered. Thank you very much for asking us see him. We will follow him closely with you. /[id number]/MODL
[2017-06-09] MEDS ORDERED: PROTOCOL POTASSIUM 1 DOSE MISC PRN (12:20)
--- NOTE | 2017-06-09 13:28 | GCON ---
[f rep st] CONSULTATION NEW PATIENT CONSULTATION REFERRING PHYSICIAN: Marycarmen Gomez MD REASON FOR CONSULTATION: Patient known to me with an underlying diagnosis of atypical CML. Here for recurrent admission for chest pain. HISTORY OF PRESENT ILLNESS: The patient is a very pleasant 81-year-old gentleman with a complex past medical history. In the last couple months, he was diagnosed with atypical CML after being found to have what was considered asymptomatic leukocytosis with neutrophilia predominance. Bone marrow demonstrates findings with that consistent of atypical CML with a significant amount of myelofibrosis and a hypercellular marrow for age. 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 Due to his age and underlying progressive coronary artery disease, initially started on Hydrea as a means to rapidly reduce his white count. Unfortunately, with small doses of Hydrea all his counts drop and he suffers from significant anemia as well as thrombocytopenia. He has been platelet transfusion dependent for the past couple months. He follows along closely with Cardiology for underlying CAD and more recently had a drug-eluting stent placed to the mid LAD for what was believed to be re in -stent stenosis. He was on dual platelet therapy for approximately 1 month and now is on aspirin alone. A couple weeks ago, the patient was given a trial of Decitabine as second-line therapy for atypical CML. On cycle 1, day 1, he presented to [facility] with non ST elevation OR. It is believed that he is having occlusion of the most recent stent that was placed by Dr. Paez. Unfortunately, this is a very difficult situation due to underlying coronary disease. He saw me this past week, and we decided to proceed with a second trial of Decitabine in hopes of controlling his elevated white blood cell count. His counts have now been as high as 200s. He has had no evidence of blasts in my office and had no evidence of significant blasts on his initial bone marrow. He presented yesterday with chest pain very typical for him. Notably, he has been on a long-acting nitrate as well as short-acting nitrate. He was put on a nitroglycerin drip here in the hospital, and his pain has subsided. Cardiology is changing some of his medicines, including increasing his beta-cassi. As far as CBC, on admission white blood cell count of 298,000, hemoglobin 9.2, and platelet count of 16,000. He is currently back on Hydrea 1000 mg daily as a bridge to Decitabine to keep his counts under control. Today, his counts show a white blood cell count of 250,000 hemoglobin 8.1, hematocrit 25.3, platelet count of 14,000. He denies bleeding. He overall is feeling well and denies any other new symptoms. The chest pain has subsided. Creatinine today 2.1, total bilirubin 2.2, alkaline phosphatase 401. His troponins have been positive, most recent 1.6. His BNP is 13,900. PAST MEDICAL HISTORY: 1. Coronary artery disease, status post multiple stents with in-stent stenosis and OR x2. 2. Atypical CML. 3. Hypertension. 4. BPH. 5. Hyperlipidemia. 6. Diastolic failure. 7. Chronic kidney disease. 8. Hyperuricemia. PAST SURGICAL HISTORY: CABG. FAMILY HISTORY: Heart disease in his father, at age 62. SOCIAL HISTORY: Remote tobacco use. Drinks alcohol rarely. He is retired. REVIEW OF SYSTEMS: As per HPI. Otherwise negative. MEDICATIONS: Outpatient medications have been reviewed. PHYSICAL EXAM: VITAL SIGNS: Today, blood pressure 90/50, pulse of 85, respiration rate 15, saturating 95% on 2 L nasal cannula, temp 36.8. GENERAL: Elderly gentleman, not in acute distress. Alert and oriented. HEENT: Anicteric sclerae. Oropharynx is clear. HEART: Regular rate and rhythm. LUNGS: Clear. ABDOMEN: Soft. He does have an enlarged spleen 2-3 cm below the left costal margin. LOWER EXTREMITIES: No significant edema. SKIN: Some ecchymoses that have been noted before. LABORATORY DATA: As per HPI. 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 He continues to present to the emergency room with very typical chest pain that has been deemed cardiac in nature. Yesterday, he was admitted for chest pain, again. 1. Chest pain. Appreciate Cardiology. I know patient had a recent nuclear stress test, and chest pain is believed to be of another area of re in-stent stenosis from most recent LAD. He is on aspirin, but dual anti-platelet therapy is too risky in the setting of underlying bone marrow disorder and thrombocytopenia. Continue conservative medical management. The patient understands this is a very high risk situation in general given the complications that can arise from treating both coronary disease as well as bone marrow disorder. 2. 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 The patient is JAK2 negative, calreticulin negative , BCR-ABL negative. He has come back positive for 2 mutations discovered on molecular profiling. 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 In discussed with Jose G, the patient's diagnosis is consistent with atypical chronic myeloid leukemia. He is now on second-line decitabine, which we hope to truly initiate this next week if we are able. He continues on Hydrea in the meantime given his elevated white count. I am concerned that he is now developing some blasts which were present at 20% on hospital admission. I am sending peripheral blood for flow cytometry, and patient may need another bone marrow as this would certainly change treatment options and prognosis. If he continues to have atypical CML or other unclassifiable MPN, would consider ruxolitinib based on the identification of the 2 mutations discussed above and the research that supports AMILCAR inhibition. 3. Thrombocytopenia, multifactorial. Given #2 as well as ongoing treatment, will preemptively transfuse 1 unit of pooled packed units knowing that platelets will only decrease in the next few days if we are able to go ahead with the therapy recommended. Overall prognosis is poor. The patient and myself have an ongoing discussion. He is very realistic as far as prognosis and outcomes. He continues to be a full code at this time but will continue to readdress at each visit. /[id number]/MODL MTDD
[2017-06-09 14:20] LABS: SCAN POSITIVE
[2017-06-09] MEDS: NITROGLYCERIN 0.4 MG BTL SL PRN ×3 (16:13→16:37)
[2017-06-09] MEDS ORDERED: NS 1,000 ML IV SCH (16:45)
--- NOTE | 2017-06-09 16:50 | HOSPPROG ---
Hospitalist Progress Note Assessment/Plan: * Non - STEMI -likely recurrent in-stent stenosis LAD -per cards med mgmt only - severe anginal pain with any movement -weaned off nitro gtt -Imdur, Ranexa, prn SL NTG -increase coreg * CAD/stent/CABG * Atypical CML -now with 20% blast - flow cytometry pending - may need BMBx -per oncology prognosis is poor -to start second line chemo - continue hydroxyurea for now * Thrombocytopenia - critical -platelet transfusion today * Acute on chronic renal failure -give gentle IVF 1 L and follow Subjective: Chest pain a little better. Did some walking without chest pain Objective: Vital Signs Temp Pulse Resp BP Pulse Ox 36.7 C 68 18 116/59 L 95 06/09/17 14:47 06/09/17 14:47 06/09/17 14:47 06/09/17 14:47 06/09/17 11:38 Laboratory Results 06/09/17 04:12 06/09/17 04:12 06/08/17 06/09/17 06/10/17 05:59 05:59 05:59 Intake Total 300 Balance 300 PT 15.7 SEC (12.0-15.0) H 06/08/17 16:41 INR 1.25 (0.83-1.16) H 06/08/17 16:41 case d/w Dr. Bryan and Dr. Gilbert regarding complex plan for STEMI and poor counts from CML CXR - no chf - Physical Exam Constitutional: no apparent distress, appears nourished, not in pain Cardiovascular: regular rate and rhythym, no murmur, rub, or gallop Respiratory: no respiratory distress, no rales or rhonchi, clear to auscultation Gastrointestinal: normoactive bowel sounds, soft, non-tender abdomen, no palpable masses Skin: no rashes or abrasions, no fluctuance, no induration Neurologic: AAOx3, sensation intact bilaterally Psychiatric: interacting appropriately, not anxious, not encephalopathic, thought process linear ICD10 Worksheet Patient Problems: Problems Problem Status Onset Acute coronary syndrome Acute Chest pain Acute Elevated white blood cell count Acute Thrombocytopenia Acute CML (chronic myelocytic leukemia) Acute Elevated troponin Acute NSTEMI (non-ST elevated myocardial infarction) Acute Palliative care encounter Acute
[2017-06-09] MEDS: CARVEDILOL 6.25 MG TAB PO SCH ×2 (17:16→18:34)
[2017-06-09] MEDS ORDERED: CARVEDILOL 6.25 MG TAB PO SCH (18:00)
[2017-06-09] MEDS: ISOSORBIDE MONONITRATE 30 MG TAB.SR PO SCH ×2 (18:34→20:20)
[2017-06-09] MEDS: NITROGLYCERIN 2% 1 GM PACKET TP SCH ×2 (18:47→23:59)
[2017-06-09 18:48] LABS: POTASSIUM 3.5 mEq/L (3.5-5.2)
[2017-06-09] MEDS ORDERED: POTASSIUM CL 10 MEQ TAB PO ONE (19:41)
[2017-06-09] MEDS: CHOLECALCIFEROL VIT D3 2,000 UNITS TAB/CAP PO SCH (20:19)
[2017-06-09] MEDS: ROSUVASTATIN CALCIUM 10 MG TAB PO SCH (20:19)
[2017-06-09] MEDS: TAMSULOSIN HCL 0.4 MG CAP PO SCH (20:20)
[2017-06-09] MEDS: GABAPENTIN 400 MG CAP PO SCH (20:20)
[2017-06-09] MEDS: FINASTERIDE 5 MG TAB PO SCH (20:21)
[2017-06-10] MEDS ORDERED: NITROGLYCERIN 2% 30 GM OINT TP SCH
[2017-06-10 04:30] LABS: ABSOLUTE NRBC COUNT 0.67 10^3/uL (0-0.01); ADD DIFF? YES; ATYPICAL LYMPHOCYTE FLAG 0 (0-99); FRAGMENT RBC FLAG 20 (0-99); HEMATOCRIT 24.7 % (40.0-51.0); HEMOGLOBIN 7.8 g/dL (13.7-17.5); LIPEMIA HEMOLYSIS FLAG 80 (0-99); MEAN CELL HEMOGLOBIN 33.3 pg (27.9-34.1); MEAN CELL HEMOGLOBIN CONCENTR. 31.6 g/dL (32.4-36.7); MEAN CELL VOLUME 105.6 fL (81.5-99.8); MEAN PLATELET VOLUME 11.8 fL (8.7-11.7); NRBC-AUTO% 0.3 % (0.0-0.2); PLATELET CLUMPS FLAG 70 (0-99); RED BLOOD CELL COUNT 2.34 10^6/uL (4.40-6.38)
[2017-06-10 04:35] LABS: LEFT SHIFT FLG 300 (0-99); PLATELET COUNT 44 10^3/uL (150-400); RED CELL DISTRIBUTION WIDTH 20.3 % (11.5-15.2)
[2017-06-10 04:37] LABS: ADD MORPH? NO; ADD SCAN? NO
[2017-06-10 04:40] LABS: ANION GAP 14 mEq/L (8-16); CALCIUM 8.8 mg/dL (8.5-10.4); CARBON DIOXIDE 25 mEq/l (22-31); CHLORIDE 106 mEq/L (97-110); GLOMERULAR FILTRATION RATE 32; GLUCOSE 74 mg/dL (70-100); POTASSIUM 3.2 mEq/L (3.5-5.2); SODIUM 145 mEq/L (134-144)
[2017-06-10] MEDS: NITROGLYCERIN 2% 1 GM PACKET TP SCH ×2 (06:29→11:40)
[2017-06-10 06:45] LABS: ACANTHOCYTES 1+; MACROCYTES 1+
[2017-06-10 06:47] LABS: PLATELET ESTIMATE DECREASED (ADEQ); SCHISTOCYTES 1+
[2017-06-10] MEDS ORDERED: POTASSIUM CL 10 MEQ TAB PO ONE ×2 (07:34→19:40)
[2017-06-10] MEDS: ALLOPURINOL 100 MG TAB PO SCH (08:48)
[2017-06-10] MEDS: RANOLAZINE 500 MG TAB.ER PO SCH ×2 (08:48→20:54)
[2017-06-10] MEDS: ASPIRIN 81 MG CHEWABLE TAB PO SCH (08:48)
[2017-06-10] MEDS: CARVEDILOL 6.25 MG TAB PO SCH ×2 (08:48→18:18)
[2017-06-10] MEDS ORDERED: HYDROXYUREA 500 MG CAP PO SCH (09:00)
--- NOTE | 2017-06-10 10:44 | SOAPPROG ---
SUBHASH Progress Note Assessment/Plan: Assessment: Coronary artery disease Dyslipidemia Chronic renal insufficiency Chronic angina Status post coronary bypass grafting Status post multiple myocardial infarctions. Anemia Thrombocytopenia. He has angina. I have reviewed his catheterization films with the interventional service again today. We are going to just continue with medical therapy and hope that he improves. The plan we came up with was to keep him in the hospital for another day. His anemia is not making things any better for him. It is our belief that medical therapy is the best approach for his coronary disease and to give him more dye would be very interest to his kidneys and to put him on stronger anticoagulation with such a low platelet count would also be very problematic if we were to intervene on his coronaries. I have answered all his questions and talked to him. I met with him and with the interventional service. We will watch him closely. He is on a stronger dose of Coreg if his blood pressure is stable at 102 and he is not having any symptoms from low blood pressure. All Plan: 06/10/17 10:46 Subjective: He had chest pain yesterday afternoon. He denies any chest pain last night. I talked to the nursing staff and they said that he had no chest pain last night. When I speak to him this morning he has not had chest pain yet today. He is not having fever chills or cough He is not having hemoptysis of bleeding anywhere. His platelet count is a little higher. Unfortunately has a very significant anemia that is not changing. He does not have orthopnea or PND. He is not having palpitations. He is taking his medications and not having complications with them at this point. Objective: Vital Signs Temp Pulse Resp BP Pulse Ox 36.8 C 74 16 103/59 L 94 06/10/17 07:55 06/10/17 07:55 06/10/17 07:55 06/10/17 07:55 06/10/17 07:55 Laboratory Results 06/10/17 03:35 06/10/17 03:35 06/09/17 06/10/17 06/11/17 05:59 05:59 05:59 Intake Total 300 1700 Output Total 350 Balance 300 1350 PT 15.7 SEC (12.0-15.0) H 06/08/17 16:41 INR 1.25 (0.83-1.16) H 06/08/17 16:41 Selected Entries 06/10/17 07:55 Heart Rate 74 Respiratory 16 Rate O2 Sat (%) 94 Temperature (C) 36.8 C Blood Pressure 103/59 L Mean Arterial 73 Pressure (MAP) Laboratory Tests 06/08/17 06/08/17 06/08/17 16:41 16:41 21:46 WBC 298.15 H* Hct 27.9 L Plt Count 16 L* Absolute Seg Neuts Absolute Band Neuts BUN 20 Creatinine 2.2 H Troponin I 1.050 H 0.988 H 06/09/17 06/09/17 06/10/17 04:12 04:12 03:35 WBC 249.18 H* Hct 25.3 L Plt Count 14 L* Absolute Seg Neuts Absolute Band Neuts BUN 22 26 H Creatinine 2.1 H 2.0 H Troponin I 1.600 H 1.120 H 06/10/17 03:35 WBC 249.60 H* Hct 24.7 L Plt Count 44 L D Absolute Seg Neuts 199.68 H Absolute Band Neuts 9.98 H BUN Creatinine Troponin I Physical Exam - Physical Exam General Appearance: no apparent distress Respiratory: rhonchi Cardiac/Chest: systolic murmur Abdomen: non-tender, soft Skin: warm/dry Extremities: No pedal edema Neuro/Psych: normal mood/affect ICD10 Worksheet Patient Problems: Problems Problem Status Onset Acute coronary syndrome Acute Chest pain Acute Elevated white blood cell count Acute Thrombocytopenia Acute CML (chronic myelocytic leukemia) Acute Elevated troponin Acute NSTEMI (non-ST elevated myocardial infarction) Acute Palliative care encounter Acute
[2017-06-10] MEDS ORDERED: FLU VACC QS 2017-18 (3YR+)/PF 0.5 ML SYR (FLUARIX QUAD) IM ONE ×2 (11:47→21:30)
--- NOTE | 2017-06-10 12:45 | SOAPPROG ---
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 Chronic angina/progressive CAD - appreciate cardiology I agree w conservative medical management at this time he is high risk for cath given kidney issues and anemia/thrombocytopenia transfuse 2u PRBCs today due to underlying CAD and presumed worsening anemia over next few days 1. 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 Continues to be transfusion dependent w Hydrea and now counts rising Trial of Dacogen a couple weeks ago but admitted w NSTEMI so therapy aborted after C1D1 Plan another trial of Dacogen w bridge on Hydrea to control counts may need transfusion more frequently initially If stays in house, may challenge him here Next gen sequencing w SETBP1 and CSF3R -these mutations open option to inhibit Misael-STAT pathway w ruxolitinib in future I am concerned about increasing counts and minimal amount of blast seem on peripheral blood Flow cytometry sent on Sunday to make sure pt has not progressed to acute leukemia Certainly, palliative care alone is suitable if he does not respond to therapy 2. CKD - Cr stable remains on allopurinol, renally dosed Subjective: CP this am prior to NG path change Objective: Vital Signs Temp Pulse Resp BP Pulse Ox 36.8 C 72 17 104/61 93 06/10/17 12:35 06/10/17 12:35 06/10/17 12:35 06/10/17 12:35 06/10/17 12:35 Laboratory Results 06/10/17 03:35 06/10/17 03:35 06/09/17 06/10/17 06/11/17 05:59 05:59 05:59 Intake Total 300 1700 Output Total 350 Balance 300 1350 PT 15.7 SEC (12.0-15.0) H 06/08/17 16:41 INR 1.25 (0.83-1.16) H 06/08/17 16:41 Gen - NAD HEENT - anicteric CV - RRR, systolic murmur Resp - CTA Abd - spleen 3cm below costal margin Ext - no sig edema ICD10 Worksheet Patient Problems: Problems Problem Status Onset Acute coronary syndrome Acute Chest pain Acute Elevated white blood cell count Acute Thrombocytopenia Acute CML (chronic myelocytic leukemia) Acute Elevated troponin Acute NSTEMI (non-ST elevated myocardial infarction) Acute Palliative care encounter Acute
[2017-06-10] MEDS ORDERED: LIDOCAINE/PRILOCAINE 1 EACH CRTUBE TP PRN (13:25)
[2017-06-10] MEDS ORDERED: BACITRACIN OINTMENT 1 PACKET TP ONE (15:09)
--- NOTE | 2017-06-10 16:10 | HOSPPROG ---
Hospitalist Progress Note Assessment/Plan: * Non - STEMI -likely recurrent in-stent stenosis LAD -per cards med mgmt only - CP/angina continues but improved -continue nitrates per cardiology -continue Ranexa -increase coreg -low dose ASA only due to severe thrombocytopenia -on Crestor -transfuse PRBC today per cardiology * CAD/stent/CABG * Atypical CML -now with 20% blast - flow cytometry pending -may need BMBx, rule out acute leukemia -per oncology prognosis is poor -second line chemo this week - continue hydroxyurea for now * Thrombocytopenia - critical -s/p platelet transfusion * Acute on chronic renal failure -not returning to previous baseline - check renal US Subjective: Still with CP but better than 24 hours ago Objective: Vital Signs Temp Pulse Resp BP Pulse Ox 36.9 C 79 18 106/58 L 93 06/10/17 15:12 06/10/17 15:12 06/10/17 15:12 06/10/17 15:12 06/10/17 15:12 Laboratory Results 06/10/17 03:35 06/10/17 03:35 06/09/17 06/10/17 06/11/17 05:59 05:59 05:59 Intake Total 300 1700 Output Total 350 Balance 300 1350 PT 15.7 SEC (12.0-15.0) H 06/08/17 16:41 INR 1.25 (0.83-1.16) H 06/08/17 16:41 tele reviewed - NSR case d/w Dr. Bryan - he reviewed films with Dr. Espinal - continues to think med mgmt only is best approach - Physical Exam Constitutional: no apparent distress, appears nourished, not in pain Cardiovascular: regular rate and rhythym, no murmur, rub, or gallop Respiratory: no respiratory distress, no rales or rhonchi, clear to auscultation Gastrointestinal: normoactive bowel sounds, soft, non-tender abdomen, no palpable masses Skin: no rashes or abrasions, no fluctuance, no induration Neurologic: AAOx3, sensation intact bilaterally Psychiatric: interacting appropriately, not anxious, not encephalopathic, thought process linear ICD10 Worksheet Patient Problems: Problems Problem Status Onset Acute coronary syndrome Acute Chest pain Acute Elevated white blood cell count Acute Thrombocytopenia Acute CML (chronic myelocytic leukemia) Acute Elevated troponin Acute NSTEMI (non-ST elevated myocardial infarction) Acute Palliative care encounter Acute
[2017-06-10 19:00] LABS: POTASSIUM 3.8 mEq/L (3.5-5.2)
[2017-06-10] MEDS: TAMSULOSIN HCL 0.4 MG CAP PO SCH (20:53)
[2017-06-10] MEDS: GABAPENTIN 400 MG CAP PO SCH (20:53)
[2017-06-10] MEDS: FINASTERIDE 5 MG TAB PO SCH (20:54)
[2017-06-10] MEDS: ISOSORBIDE MONONITRATE 30 MG TAB.SR PO SCH (20:54)
[2017-06-10] MEDS: ROSUVASTATIN CALCIUM 10 MG TAB PO SCH (20:55)
[2017-06-10] MEDS: CHOLECALCIFEROL VIT D3 2,000 UNITS TAB/CAP PO SCH (20:56)
[2017-06-10] MEDS ORDERED: PATCH REMOVAL 1 EA PATCH TD SCH (21:00)
[2017-06-11 00:21] VITALS: PULSE 77
[2017-06-11 04:05] LABS: ABSOLUTE NRBC COUNT 0.62 10^3/uL (0-0.01); ADD DIFF? YES; ADD MORPH? YES; ATYPICAL LYMPHOCYTE FLAG 0 (0-99); FRAGMENT RBC FLAG 20 (0-99); HEMOGLOBIN 9.7 g/dL (13.7-17.5); LIPEMIA HEMOLYSIS FLAG 80 (0-99); MEAN CELL HEMOGLOBIN 32.3 pg (27.9-34.1); MEAN CELL HEMOGLOBIN CONCENTR. 32.3 g/dL (32.4-36.7); MEAN PLATELET VOLUME 11.9 fL (8.7-11.7); NRBC-AUTO% 0.2 % (0.0-0.2)
[2017-06-11 04:10] LABS: LEFT SHIFT FLG 300 (0-99); PLATELET CLUMPS FLAG 140 (0-99); PLATELET COUNT 30 10^3/uL (150-400); RED CELL DISTRIBUTION WIDTH 21.5 % (11.5-15.2)
[2017-06-11 04:12] LABS: ADD SCAN? NO
[2017-06-11 04:19] LABS: ALANINE AMINOTRANSFERASE 27 IU/L (21-72); ALBUMIN 3.3 g/dL (3.5-5.0); ALKALINE PHOSPHATASE 347 IU/L (38-126); ANION GAP 12 mEq/L (8-16); ASPARTATE AMINOTRANSFERASE 34 IU/L (17-59); BILIRUBIN,TOTAL 2.6 mg/dL (0.1-1.4); BILIRUBIN-CONJUGATED 0.5 mg/dL (0.0-0.5); BILIRUBIN-UNCONJUGATED 2.1 mg/dL (0.0-1.1); CALCIUM 9.2 mg/dL (8.5-10.4); CARBON DIOXIDE 25 mEq/l (22-31); CHLORIDE 108 mEq/L (97-110); CREATININE 2.1 mg/dL (0.7-1.3); GLOMERULAR FILTRATION RATE 30; GLUCOSE 94 mg/dL (70-100); MAGNESIUM 1.7 mg/dL (1.6-2.3); POTASSIUM 3.5 mEq/L (3.5-5.2); SODIUM 145 mEq/L (134-144); TOTAL PROTEIN 5.2 g/dL (6.3-8.2)
[2017-06-11 05:01] LABS: ACANTHOCYTES 1+; ELLIPTOCYTES 1+; MACROCYTES 1+; PLATELET ESTIMATE DECREASED (ADEQ); SCHISTOCYTES 1+
[2017-06-11 05:02] LABS: TOXIC GRANULATION PRESENT
[2017-06-11] MEDS ORDERED: POTASSIUM CL 10 MEQ TAB PO ONE (07:06)
[2017-06-11 08:34] VITALS: BP 115/74
[2017-06-11] MEDS: ASPIRIN 81 MG CHEWABLE TAB PO SCH (08:34)
[2017-06-11] MEDS: RANOLAZINE 500 MG TAB.ER PO SCH (08:34)
[2017-06-11] MEDS: CARVEDILOL 6.25 MG TAB PO SCH (08:34)
[2017-06-11] MEDS: ALLOPURINOL 100 MG TAB PO SCH (08:34)
[2017-06-11] MEDS ORDERED: NITROGLYCERIN 0.4 MG/HR PATCH TD SCH (09:00)
[2017-06-11] MEDS ORDERED: HYDROXYUREA 500 MG CAP PO SCH (09:00)
[2017-06-11] MEDS ORDERED: LIDOCAINE/PRILOCAINE 1 EACH CRTUBE TP ONE (10:00)
[2017-06-11 11:09] VITALS: RESP 22; TEMP 98.6; O2SAT 92
--- NOTE | 2017-06-11 12:48 | ASDISCHSUM ---
Discharge Information Plan Status:Home with No Needs Medically Cleared to Leave: Discharge Date:06/11/2017 12:15 PM CM D/C Disposition:Home, Routine, Self-Care ADT D/C Disposition:Home, Routine, Self-Care Projected Discharge Date:06/11/2017 12:15 PM Transportation at D/C: Discharge Delay Reason: Follow-Up Date:06/11/2017 12:15 PM Discharge Slot: Final Diagnosis: Placement Information Patient Contact Information Contact Name:MIRIAM Relationship:Alfa Address: Work Phone: City:[place] Alternate Phone: State/[employer] Code:[place] Email: Financial Information Financial Class: Primary Plan Desc:MEDICARE INPATIENT Primary Plan Number:[id number] [facility] Plan Number:[id number] Assessment Information BC CM Progress Note CM Note CM Note Notes: Pt. is an 81-year-old man admitted w/ chest pain. Pt. has acute coronary syndrome. Hx. diastolic heart failure, CAD, hyperlipidemia, HTN, CML, BPH and chronic kidney disease. PT is recommending home d/c at this time although Pt's heart condition appears to be worsening per H&P. Pt. has had Palliative consult in past. Pt. has a son Dionisio listed in [facility]. CM available should d/c POC change. Date Signed: 06/09/2017 10:55 AM Electronically Signed By:Leigh Gilbert LCSW [facility] CM Progress Note CM Note CM Note Notes: Pt to DC today. Pt has no HC needs. Date Signed: 06/11/2017 12:47 PM Electronically Signed By:Catrina Goodrich LCSW Intervention Information Intervention Type:*IM-Signed Date of Service:06/11/2017 12:23 PM Patient Type:Inpatient Staff Member:Ashely Hartley Hours: Discipline: Severity: Comment:
--- NOTE | 2017-06-11 14:56 | SOAPPROG ---
SOAP Progress Note Assessment/Plan: Assessment: Coronary artery disease Dyslipidemia Chronic renal insufficiency Chronic angina Status post coronary bypass grafting Status post multiple myocardial infarctions. Anemia Thrombocytopenia. He has angina. Plan: 06/10/17 10:46 06/11/17 14:54 See the problem list above. He does have angina. He is having less angina today. He is on higher dose of beta-cassi. He is not having any other major complaints right at this time. He knows when to use the emergency room. Do a he would like to go home soon as possible. Not sure we control his angina yet but he is getting close to maximal medical therapy is his blood pressure dropped and he does not like it when his blood pressure gets too low. He understands were not do further invasive evaluation even though he may have an occluded stent and realizes that for further stenting is not being considered in his best interest so far. All his questions have been answered. He will follow up with Dr. Espinal Subjective: I had the pleasure talking to him today extensively. He is not having chest pain or chest tightness right now. He is concerned about it. He does not want to use oxygen so he is going to walk around for bed try function without his oxygen. Oxygen would obviously help him with his low hematocrit but he would prefer not to use it. He has no orthopnea or PND He has no hemoptysis. He has not had any trauma. He is not lightheaded dizzy or having any focal neurologic complaints. Objective: Vital Signs Temp Pulse Resp BP Pulse Ox 37.0 C 77 22 H 115/74 92 06/11/17 08:00 06/11/17 08:34 06/11/17 08:00 06/11/17 08:34 06/11/17 08:00 Laboratory Results 06/11/17 03:26 06/11/17 03:26 06/10/17 06/11/17 06/12/17 05:59 05:59 05:59 Intake Total 1700 1230 Output Total 350 350 Balance 1350 880 PT 15.7 SEC (12.0-15.0) H 06/08/17 16:41 INR 1.25 (0.83-1.16) H 06/08/17 16:41 Physical Exam - Physical Exam General Appearance: alert Respiratory: rhonchi Cardiac/Chest: systolic murmur Abdomen: non-tender, soft, No organomegaly Extremities: No pedal edema Neuro/Psych: normal mood/affect ICD10 Worksheet Patient Problems: Problems Problem Status Onset Acute coronary syndrome Acute CML (chronic myelocytic leukemia) Acute Chest pain Acute Elevated troponin Acute Elevated white blood cell count Acute NSTEMI (non-ST elevated myocardial infarction) Acute Palliative care encounter Acute Thrombocytopenia Acute chronic disease mgmt/transitional care Acute
--- NOTE | 2017-06-11 17:59 | GDS ---
[f rep st] DISCHARGE SUMMARY DISCHARGE DIAGNOSES: Include: 1. Non-ST elevation myocardial infarction. 2. Coronary artery disease, status post CABG. 3. Atypical chronic myeloid leukemia. 4. Lccww-hf-fmobvek kidney injury. 5. Critical thrombocytopenia, status post transfusion. HISTORY OF PRESENT ILLNESS: This is an 81-year-old male with atypical CML presenting with complaints of chest pain. For details of patient's initial presentation, please see the history and physical d ated 06/08/2017. PROCEDURES: 06/10/2017, patient had an ultrasound of the kidneys, showed no hydronephrosis, with a l eft kidney 1.3 cm solid lesion. Otherwise, bladder volume of 73. CONSULTATIVE SERVICES: Include: 1. Oncology. 2. Cardiology. HOSPITAL COURSE BY ISSUE: 1. Acute chest pain. The patient has known coronary disease, status post CABG. Had troponins follo wed which peaked at 1.6. After consultation with Cardiology, it was felt medical management the most appropriate approach and his medications titrated with the addition of a nitro patch, and is to foll ow in the outpatient setting with Cardiology. 2. Atypical CML. Patient's white counts were in the 200s during this hospital stay. He will be dis charged to follow in their clinic for an anticipated infusion of Dacogen. He will continue Hydrea at disposition. MEDICATIONS AT THE TIME OF DISPOSITION: Please reference med rec printed on 06/11/2017. FOLLOWUP APPOINTMENTS: 1. Include with Oncology day after disposition for Dacogen infusion. 2. With Cardiology for long-term management of his coronary artery disease. Should be seen in clini c in the next 2-4 weeks. PENDING STUDIES: Patient will need repeat CT imaging of his kidney for further evaluation of the lef t kidney lesion. I spent greater than 30 minutes in the planning and coordination of this discharge. /[id number]/MODL
[2017-06-12 05:43] LABS: FINAL DIAGNOSIS See Comments; MICROSCOPIC DESCRIPTION See Comments; SPECIAL STUDIES See Comments
== END 2017-06-11 12:15 | disposition home or self-care (01) | DRG 281 ==
LOC: F2W 17:30
PROVIDERS: ADMIT Internal Medicine; ATTEND Internal Medicine
PROC: 30233N1 Transfusion of Nonautologous Red Blood Cells into Peripheral Vein, Percutaneous Approach (ICD-10-PCS; principal; 2017-06-09)
PROC: 30233R1 Transfusion of Nonautologous Platelets into Peripheral Vein, Percutaneous Approach (ICD-10-PCS; principal; 2017-06-09)
DX: I21.3 ST elevation (STEMI) myocardial infarction of unspecified site (principal); I25.10 Atherosclerotic heart disease of native coronary artery without angina pectoris; N17.9 Acute kidney failure, unspecified; I50.32 Chronic diastolic (congestive) heart failure; D69.6 Thrombocytopenia, unspecified; C92.10 Chronic myeloid leukemia, BCR/ABL-positive, not having achieved remission; I12.9 Hypertensive chronic kidney disease with stage 1 through stage 4 chronic kidney disease, or unspecified chronic kidney disease; N18.9 Chronic kidney disease, unspecified; E87.6 Hypokalemia; E78.5 Hyperlipidemia, unspecified; Z87.442 Personal history of urinary calculi; D64.9 Anemia, unspecified; Z95.1 Presence of aortocoronary bypass graft
CPT/HCPCS: 78452-PO; 85060-90; 88184-90; 88185-91; 93017-PO; 97161-GP; 97165-GO; A9500-PO; G0008; G8978-GP-CI; G8980-GP-CI; G8987-GO-CI; G8988-GO-CI; G8989-GO-CI; J2785-PO; P9016; P9035

== ENCOUNTER → 2017-07-07 | Outpatient (CLI) | payer OTHER | LOC: FIMAGING 07:57 | PROVIDERS: ATTEND Internal Medicine Nephrology | DX: R93.422 Abnormal radiologic findings on diagnostic imaging of left kidney (principal); R16.1 Splenomegaly, not elsewhere classified; J90 Pleural effusion, not elsewhere classified ==

== ENCOUNTER 2017-07-30 22:09 | Inpatient (IN) | payer OTHER ==
[2017-07-30] MEDS ORDERED: NITROGLYCERIN 0.4 MG BTL SL PRN ×2 (22:14→23:48)
[2017-07-30] MEDS ORDERED: ASPIRIN 81 MG CHEWABLE TAB PO ONE (22:14)
[2017-07-30] MEDS ORDERED: NS 500 ML IV ONE (22:14)
--- NOTE | 2017-07-30 22:14 | EDPHY ---
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 Solis Espinal with Cardiology. Presents emergency room with substernal left-sided chest pain. Dull ache. Nonradiating. Started 730 or approximately 3 hours ago. It started at rest. No shortness of breath. The pain does not radiate anywhere specifically does not go to his back jaw or arm. Pain is still present. Patient does report taking 2 nitroglycerin tabs without any relief additionally foot nitro patch on. Decided come the emergency room as the pain continue 06/03. Additionally this patient's room air saturation 79% on room air. He was 3 L nasal cannula at night no oxygen during the day and less needed. Past Medical History: Coronary artery disease with stents, CABG, hypertension hyperlipidemia, Atypical chronic myeloid leukemia, chronic kidney disease, non STEMI Past Surgical History: CABG, PTCA, right chest port Social History: Denies daily use of drugs alcohol tobacco. Resides at [facility]. at bedside. Son at bedside. Family History: Noncontributory ROS REVIEW OF SYSTEMS: A comprehensive 10 point review of systems is otherwise negative aside from elements mentioned in the history of present illness. Exam Constitutional appears well nontoxic triage nursing summary reviewed, vital signs reviewed, awake/alert. Eyes normal conjunctivae and sclera, EOMI, PERRLA. HENT normal inspection, atraumatic, moist mucus membranes, no epistaxis, neck supple/ no meningismus, no raccoon eyes. Respiratory clear to auscultation bilaterally, normal breath sounds, no respiratory distress, no wheezing. Cardiovascular rate normal, regular rhythm, no murmur, no edema, distal pulses normal. Gastrointestinal soft, non-tender, no rebound, no guarding, normal bowel sounds, no distension, no pulsatile mass. Genitourinary no CVA tenderness. Musculoskeletal no midline vertebral tenderness, full range of motion, no calf swelling, no tenderness of extremities, no meningismus, good pulses, neurovascularly intact. Skin pink, warm, & dry, no rash, skin atraumatic. Neurologic awake, alert and oriented x 3, AAOx3, moves all 4 extremities equally, motor intact, sensory intact, CN II-XII intact, normal cerebellar, normal vision, normal speech. Psychiatric normal mood/affect. Heme/Lymph/Immune no lymphadenopathy. Differential diagnosis includes but is not limited to: ACS, atypical chest pain , pneumothorax, pneumonia, pulmonary embolism, aortic dissection, congestive heart failure, tumor, musculoskeletal pain, esophageal pain, GERD, peptic ulcer disease, pancreatitis Medical Decision Making: Plan for this patient IV establishment or access his port, full-dose aspirin, 3rd dose of nitroglycerin, if this does not relieve his pain IV morphine will be ordered, chest x-ray, check troponin EKG. Rule out acute coronary syndrome. Re-evaluation: EKG interpretation by me on record in [employer] system. Impression time of EKG 2221, this is sinus rhythm rate of 97 Q-waves noted V1 V2 V3 slight ST depression in V5 V6. T-wave abnormality aVL. Otherwise no ST elevation. When I compare this EKG to his old EKG dated 06/08/2017 similar morphology. 2239: Patient's chest x-ray reviewed one-view. Cardiomegaly present. Bilateral pulmonary edema present. Will hold patient's IV fluids. Will check BNP. May need that dose IV Lasix. 2250: Patient was given a 3rd dose of nitroglycerin. His chest pain has resolved. At this time. Patient notified tells of his chest pain returns. 2302: This patient denies any infectious symptoms to me. Denies chills fever productive cough. Denies significant shortness of breath. WBC count reviewed 163,000. 2314: Spoke with Dr. June with Oncology. Will see and evaluate the patient tomorrow. 2316: Given the density rates on his chest x-ray I will cover him just in case with IV vancomycin 1 g and IV Zosyn for broad-spectrum antibiotic coverage in the setting of atypical CML. This patient certainly does have a mixed picture with hypoxia and infiltrates on his chest x-ray could also be heart failure given his significant cardiac history. Waiting his procalcitonin and BNP. I have held off IV fluids at this time. 2317: Plan is for admission to telemetry for chest discomfort. EKG is nonischemic. Chest pain-free at this time. Oncology has been consulted. Broad -spectrum antibiotics have been given. Also [place] [address]. Elevated BUN and creatinine. 2323: Patient is hemodynamically stable. I have consult the hospitalist service for admission for chest pain and hypoxia. Patient will be admitted to the medicine service with Oncology consult. Admission to PCU for full telemetry monitoring giving significant cardiac history and chest pain. Troponin is still pending at this time. BNP still pending at this time. Procalcitonin pending at this time. Broad-spectrum antibiotics have been given. Full-dose aspirin. I have not given him heparin or Lovenox as he has an acute kidney injury as well as severe thrombocytopenia 35,000. H&H are low. But does not necessitate an acute blood transfusion at this time. Lactic acid noted to be less than 2. Critical Care: Total Critical Care Time Spent Managing this Patient: 65 Minutes. This time was spent Exclusively with this patient. This Care was exclusive of procedures. The Organ System/life at risk was Cardiac, Pulmonary. This Patient was in Critical Condition because hypoxia, chest pain, pulmonary infiltrates, thrombocytopenia, anemia, acute kidney injury Source: Patient - Personal History Current Tetanus/Diphtheria Vaccine: No - Medical/Surgical History Hx Asthma: No Hx Chronic Respiratory Disease: No Hx Diabetes: No Hx Cardiac Disease: Yes Hx Renal Disease: No Hx Cirrhosis: No Hx Alcoholism: No Hx HIV/AIDS: No Hx Splenectomy or Spleen Trauma: No Other PMH: CML, CBG '15 Cardiac Stents "05, "06, "08, "09, CAD, HTN, nephrolithiasis, BPH, OR x2 - Social History Smoking Status: Former smoker Constitutional: Initial Vital Signs Heart Rate 81 07/30/17 22:11 Respiratory Rate 16 07/30/17 22:11 Blood Pressure 140/68 H 07/30/17 22:11 O2 Sat (%) 97 07/30/17 22:11 O2 Delivery Mode Nasal Cannula O2 (L/minute) 4 Allergies/Adverse Reactions: No Known Allergies Allergy (Verified 07/27/14 11:38) Home Medications: Medication Instructions Recorded Finasteride [Proscar 5 MG (*)] 5 mg PO HS 07/08/12 Gabapentin [Neurontin 400 MG (*)] 400 mg PO HS 07/27/14 Herbals/Supplements -Info Only 1 ea PO DAILY 07/27/14 Tamsulosin HCl [Flomax 0.4 MG (*)] 0.4 mg PO HS 07/27/14 Aspirin [Aspirin 81mg (*)] 81 mg PO HS 02/23/17 Testosterone IM [Testosterone 200 mg IM Q14D 02/23/17 100mg/ml IM inj (*)] Cholecalciferol Vit D3 [Vitamin D3 5,000 units PO HS 03/06/17 (*)] Isosorbide Mononitrate [Imdur 30 30 mg PO HS 03/06/17 mg (*)] Nitroglycerin [Nitrostat 0.4 mg 0.4 mg SL Q5M PRN 03/06/17 (*)] Ranolazine [Ranexa] 500 mg PO BID 06/08/17 Carvedilol [Coreg (*)] 6.25 mg PO BIDMEAL #60 tab 06/11/17 Nitroglycerin [Transderm-Nitro 0.4 0.4 mg TD DAILY #30 patch 06/11/17 mg/hr (*)] Folic Acid [Folic Acid 1 MG (*)] 1 mg PO DAILY 07/31/17 Furosemide [Lasix] 40 mg PO BID 07/31/17 Potassium Cl [Klor-Con 20 meq (*)] 20 meq PO DAILY 07/31/17 Rosuvastatin Calcium [Crestor 20mg 20 mg PO HS 07/31/17 (*)] Ruxolitinib Phosphate [Jakafi] 5 mg PO BID 07/31/17 Medical Decision Making - Data Points Laboratory Results: Laboratory Results 07/30/17 22:45 07/30/17 22:45 Medications Given: Aspirin (Aspirin) 81 mg PO [facility] Stop: 01/27/18 20:59 Last Admin: 07/31/17 20:35 Dose: 81 mg Carvedilol (Coreg) 6.25 mg PO BIDMEAL [facility] Stop: 01/27/18 17:59 Last Admin: 07/31/17 18:18 Dose: 6.25 mg Cholecalciferol (Vitamin D) 5,000 units PO [facility] Stop: 01/27/18 20:59 Last Admin: 07/31/17 20:34 Dose: 5,000 units Finasteride (Proscar) 5 mg PO [facility] Stop: 01/27/18 20:59 Last Admin: 07/31/17 20:35 Dose: 5 mg Furosemide (Lasix) 40 mg PO BIDDIUR [facility] Stop: 01/27/18 14:59 Last Admin: 07/31/17 14:21 Dose: 40 mg Gabapentin (Neurontin) 400 mg PO HS [facility] Stop: 01/27/18 20:59 Last Admin: 07/31/17 20:35 Dose: 400 mg Isosorbide Mononitrate (Imdur) 30 mg PO [facility] Stop: 01/27/18 20:59 Last Admin: 07/31/17 20:35 Dose: 30 mg Miscellaneous Medication (Ruxolitinib Phosphate [Jakafi]) 5 mg PO BID [facility] Stop: 01/27/18 20:59 Last Admin: 07/31/17 20:35 Dose: Not Given Nitroglycerin (Nitrostat) 0.4 mg SL Q5M PRN PRN Reason: Chest Pain Stop: 01/26/18 23:47 Last Admin: 07/31/17 17:22 Dose: 0.4 mg Ranolazine (Ranexa) 500 mg PO BID [facility] Stop: 01/27/18 20:59 Last Admin: 07/31/17 20:35 Dose: 500 mg Rosuvastatin Calcium (Crestor) 20 mg PO [facility] Stop: 01/27/18 20:59 Last Admin: 07/31/17 20:35 Dose: 20 mg Tamsulosin HCl (Flomax) 0.4 mg PO [facility] Stop: 01/27/18 20:59 Last Admin: 07/31/17 20:35 Dose: 0.4 mg Discontinued Medications Aspirin (Aspirin) 324 mg PO EDNOW ONE Stop: 07/30/17 22:15 Last Admin: 07/30/17 22:29 Dose: 324 mg Furosemide (Lasix Injection) 20 mg IVP ONCE ONE Stop: 07/31/17 00:38 Last Admin: 07/31/17 01:55 Dose: 20 mg Sodium Chloride (Ns) 500 mls @ 1,000 mls/hr IV EDNOW ONE PRN Reason: Protocol Stop: 07/30/17 22:43 Last Admin: 07/31/17 00:09 Dose: Not Given Piperacillin/Tazobactam/Dextrose (Zosyn (Premix)) 100 mls @ 200 mls/hr IV ONCE ONE PRN Reason: Protocol Stop: 07/30/17 23:35 Last Admin: 07/31/17 01:34 Dose: Not Given Vancomycin/Sodium Chloride (Vancomycin 1 Gm (Premix)) 250 mls @ 250 mls/hr IV EDNOW ONE PRN Reason: Protocol Stop: 07/31/17 00:14 Last Admin: 07/30/17 23:55 Dose: 250 mls Piperacillin/Tazobactam/Dextrose (Zosyn 2.25 Gm (Premix)) 50 mls @ 100 mls/hr IV Q6 [facility] Stop: 08/30/17 00:59 Last Admin: 07/31/17 05:29 Dose: 50 mls Morphine Sulfate (Morphine) 4 mg IVP EDNOW ONE Stop: 07/30/17 22:26 Last Admin: 07/31/17 05:27 Dose: Not Given Nitroglycerin (Nitrostat) 0.4 mg SL Q5M PRN PRN Reason: Chest Pain Last Admin: 07/30/17 22:29 Dose: 0.4 mg Nitroglycerin (Transderm-Nitro) 0.4 mg TD ONCE ONE Stop: 07/31/17 16:31 Last Admin: 07/31/17 16:41 Dose: 0.4 mg Ondansetron HCl (Zofran) 4 mg IVP EDNOW ONE Stop: 07/30/17 22:26 Last Admin: 07/31/17 01:18 Dose: Not Given Ranolazine (Ranexa) 500 mg PO ONCE ONE Stop: 07/31/17 16:31 Last Admin: 07/31/17 16:44 Dose: 500 mg Testosterone Cypionate (Testosterone Im Syringe) 200 mg IM Q14D [facility] Stop: 01/27/18 11:44 Last Admin: 07/31/17 14:08 Dose: Not Given Departure - Departure Disposition: [facility] In[facility] Acute Clinical Impression: SINGH (acute kidney injury), Thrombocytopenia, Hypoxia Chest pain Qualifiers: Chest pain type: unspecified Qualified Code(s): R07.9 - Chest pain, unspecified Anemia Qualifiers: Anemia type: other cause Other causes of anemia: other cause, not classified Qualified Code(s): D64.89 - Other specified anemias Condition: Fair
--- NOTE | 2017-07-30 22:14 | EDPHY ---
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 Solis Espinal with Cardiology. Presents emergency room with substernal left-sided chest pain. Dull ache. Nonradiating. Started 730 or approximately 3 hours ago. It started at rest. No shortness of breath. The pain does not radiate anywhere specifically does not go to his back jaw or arm. Pain is still present. Patient does report taking 2 nitroglycerin tabs without any relief additionally foot nitro patch on. Decided come the emergency room as the pain continue 06/03. Additionally this patient's room air saturation 79% on room air. He was 3 L nasal cannula at night no oxygen during the day and less needed. Past Medical History: Coronary artery disease with stents, CABG, hypertension hyperlipidemia, Atypical chronic myeloid leukemia, chronic kidney disease, non STEMI Past Surgical History: CABG, PTCA, right chest port Social History: Denies daily use of drugs alcohol tobacco. Resides at [place]. at bedside. Son at bedside. Family History: Noncontributory ROS REVIEW OF SYSTEMS: A comprehensive 10 point review of systems is otherwise negative aside from elements mentioned in the history of present illness. Exam Constitutional appears well nontoxic triage nursing summary reviewed, vital signs reviewed, awake/alert. Eyes normal conjunctivae and sclera, EOMI, PERRLA. HENT normal inspection, atraumatic, moist mucus membranes, no epistaxis, neck supple/ no meningismus, no raccoon eyes. Respiratory clear to auscultation bilaterally, normal breath sounds, no respiratory distress, no wheezing. Cardiovascular rate normal, regular rhythm, no murmur, no edema, distal pulses normal. Gastrointestinal soft, non-tender, no rebound, no guarding, normal bowel sounds, no distension, no pulsatile mass. Genitourinary no CVA tenderness. Musculoskeletal no midline vertebral tenderness, full range of motion, no calf swelling, no tenderness of extremities, no meningismus, good pulses, neurovascularly intact. Skin pink, warm, & dry, no rash, skin atraumatic. Neurologic awake, alert and oriented x 3, AAOx3, moves all 4 extremities equally, motor intact, sensory intact, CN II-XII intact, normal cerebellar, normal vision, normal speech. Psychiatric normal mood/affect. Heme/Lymph/Immune no lymphadenopathy. Differential diagnosis includes but is not limited to: ACS, atypical chest pain , pneumothorax, pneumonia, pulmonary embolism, aortic dissection, congestive heart failure, tumor, musculoskeletal pain, esophageal pain, GERD, peptic ulcer disease, pancreatitis Medical Decision Making: Plan for this patient IV establishment or access his port, full-dose aspirin, 3rd dose of nitroglycerin, if this does not relieve his pain IV morphine will be ordered, chest x-ray, check troponin EKG. Rule out acute coronary syndrome. Re-evaluation: EKG interpretation by me on record in [employer] system. Impression time of EKG 2221, this is sinus rhythm rate of 97 Q-waves noted V1 V2 V3 slight ST depression in V5 V6. T-wave abnormality aVL. Otherwise no ST elevation. When I compare this EKG to his old EKG dated 06/08/2017 similar morphology. 2239: Patient's chest x-ray reviewed one-view. Cardiomegaly present. Bilateral pulmonary edema present. Will hold patient's IV fluids. Will check BNP. May need that dose IV Lasix. 2250: Patient was given a 3rd dose of nitroglycerin. His chest pain has resolved. At this time. Patient notified tells of his chest pain returns. 2302: This patient denies any infectious symptoms to me. Denies chills fever productive cough. Denies significant shortness of breath. WBC count reviewed 163,000. 2314: Spoke with Dr. June with Oncology. Will see and evaluate the patient tomorrow. 2316: Given the density rates on his chest x-ray I will cover him just in case with IV vancomycin 1 g and IV Zosyn for broad-spectrum antibiotic coverage in the setting of atypical CML. This patient certainly does have a mixed picture with hypoxia and infiltrates on his chest x-ray could also be heart failure given his significant cardiac history. Waiting his procalcitonin and BNP. I have held off IV fluids at this time. 2317: Plan is for admission to telemetry for chest discomfort. EKG is nonischemic. Chest pain-free at this time. Oncology has been consulted. Broad -spectrum antibiotics have been given. Also noted [place] [address]. Elevated BUN and creatinine. 2323: Patient is hemodynamically stable. I have consult the hospitalist service for admission for chest pain and hypoxia. Patient will be admitted to the medicine service with Oncology consult. Admission to PCU for full telemetry monitoring giving significant cardiac history and chest pain. Troponin is still pending at this time. BNP still pending at this time. Procalcitonin pending at this time. Broad-spectrum antibiotics have been given. Full-dose aspirin. I have not given him heparin or Lovenox as he has an acute kidney injury as well as severe thrombocytopenia 35,000. H&H are low. But does not necessitate an acute blood transfusion at this time. Lactic acid noted to be less than 2. Critical Care: Total Critical Care Time Spent Managing this Patient: 65 Minutes. This time was spent Exclusively with this patient. This Care was exclusive of procedures. The Organ System/life at risk was Cardiac, Pulmonary. This Patient was in Critical Condition because hypoxia, chest pain, pulmonary infiltrates, thrombocytopenia, anemia, acute kidney injury Source: Patient - Personal History Current Tetanus/Diphtheria Vaccine: No - Medical/Surgical History Hx Asthma: No Hx Chronic Respiratory Disease: No Hx Diabetes: No Hx Cardiac Disease: Yes Hx Renal Disease: No Hx Cirrhosis: No Hx Alcoholism: No Hx HIV/AIDS: No Hx Splenectomy or Spleen Trauma: No Other PMH: CML, CBG '15 Cardiac Stents "05, "06, "08, "09, CAD, HTN, nephrolithiasis, BPH, [place] x2 - Social History Smoking Status: Former smoker Constitutional: Initial Vital Signs Heart Rate 81 07/30/17 22:11 Respiratory Rate 16 07/30/17 22:11 Blood Pressure 140/68 H 07/30/17 22:11 O2 Sat (%) 97 07/30/17 22:11 O2 Delivery Mode Nasal Cannula O2 (L/minute) 4 Allergies/Adverse Reactions: No Known Allergies Allergy (Verified 07/27/14 11:38) Home Medications: Medication Instructions Recorded Finasteride [Proscar 5 MG (*)] 5 mg PO HS 07/08/12 Gabapentin [Neurontin 400 MG (*)] 400 mg PO HS 07/27/14 Herbals/Supplements -Info Only 1 ea PO DAILY 07/27/14 Tamsulosin HCl [Flomax 0.4 MG (*)] 0.4 mg PO HS 07/27/14 Aspirin [Aspirin 81mg (*)] 81 mg PO HS 02/23/17 Testosterone IM [Testosterone 200 mg IM Q14D 02/23/17 100mg/ml IM inj (*)] Cholecalciferol Vit D3 [Vitamin D3 5,000 units PO HS 03/06/17 (*)] Isosorbide Mononitrate [Imdur 30 30 mg PO HS 03/06/17 mg (*)] Nitroglycerin [Nitrostat 0.4 mg 0.4 mg SL Q5M PRN 03/06/17 (*)] Ranolazine [Ranexa] 500 mg PO BID 06/08/17 Carvedilol [Coreg (*)] 6.25 mg PO BIDMEAL #60 tab 06/11/17 Nitroglycerin [Transderm-Nitro 0.4 0.4 mg TD DAILY #30 patch 06/11/17 mg/hr (*)] Folic Acid [Folic Acid 1 MG (*)] 1 mg PO DAILY 07/31/17 Furosemide [Lasix] 40 mg PO BID 07/31/17 Potassium Cl [Klor-Con 20 meq (*)] 20 meq PO DAILY 07/31/17 Rosuvastatin Calcium [Crestor 20mg 20 mg PO HS 07/31/17 (*)] Ruxolitinib Phosphate [Jakafi] 5 mg PO BID 07/31/17 Medical Decision Making - Data Points Laboratory Results: Laboratory Results 07/30/17 22:45 07/30/17 22:45 Medications Given: Aspirin (Aspirin) 81 mg PO [facility] Stop: 01/27/18 20:59 Last Admin: 07/31/17 20:35 Dose: 81 mg Carvedilol (Coreg) 6.25 mg PO BIDMEAL [facility] Stop: 01/27/18 17:59 Last Admin: 07/31/17 18:18 Dose: 6.25 mg Cholecalciferol (Vitamin D) 5,000 units PO [facility] Stop: 01/27/18 20:59 Last Admin: 07/31/17 20:34 Dose: 5,000 units Finasteride (Proscar) 5 mg PO [facility] Stop: 01/27/18 20:59 Last Admin: 07/31/17 20:35 Dose: 5 mg Furosemide (Lasix) 40 mg PO BIDDIUR [facility] Stop: 01/27/18 14:59 Last Admin: 07/31/17 14:21 Dose: 40 mg Gabapentin (Neurontin) 400 mg PO HS [facility] Stop: 01/27/18 20:59 Last Admin: 07/31/17 20:35 Dose: 400 mg Isosorbide Mononitrate (Imdur) 30 mg PO [facility] Stop: 01/27/18 20:59 Last Admin: 07/31/17 20:35 Dose: 30 mg Miscellaneous Medication (Ruxolitinib Phosphate [Jakafi]) 5 mg PO BID [facility] Stop: 01/27/18 20:59 Last Admin: 07/31/17 20:35 Dose: Not Given Nitroglycerin (Nitrostat) 0.4 mg SL Q5M PRN PRN Reason: Chest Pain Stop: 01/26/18 23:47 Last Admin: 07/31/17 17:22 Dose: 0.4 mg Ranolazine (Ranexa) 500 mg PO BID [facility] Stop: 01/27/18 20:59 Last Admin: 07/31/17 20:35 Dose: 500 mg Rosuvastatin Calcium (Crestor) 20 mg PO [facility] Stop: 01/27/18 20:59 Last Admin: 07/31/17 20:35 Dose: 20 mg Tamsulosin HCl (Flomax) 0.4 mg PO [facility] Stop: 01/27/18 20:59 Last Admin: 07/31/17 20:35 Dose: 0.4 mg Discontinued Medications Aspirin (Aspirin) 324 mg PO EDNOW ONE Stop: 07/30/17 22:15 Last Admin: 07/30/17 22:29 Dose: 324 mg Furosemide (Lasix Injection) 20 mg IVP ONCE ONE Stop: 07/31/17 00:38 Last Admin: 07/31/17 01:55 Dose: 20 mg Sodium Chloride (Ns) 500 mls @ 1,000 mls/hr IV EDNOW ONE PRN Reason: Protocol Stop: 07/30/17 22:43 Last Admin: 07/31/17 00:09 Dose: Not Given Piperacillin/Tazobactam/Dextrose (Zosyn (Premix)) 100 mls @ 200 mls/hr IV ONCE ONE PRN Reason: Protocol Stop: 07/30/17 23:35 Last Admin: 07/31/17 01:34 Dose: Not Given Vancomycin/Sodium Chloride (Vancomycin 1 Gm (Premix)) 250 mls @ 250 mls/hr IV EDNOW ONE PRN Reason: Protocol Stop: 07/31/17 00:14 Last Admin: 07/30/17 23:55 Dose: 250 mls Piperacillin/Tazobactam/Dextrose (Zosyn 2.25 Gm (Premix)) 50 mls @ 100 mls/hr IV Q6 [facility] Stop: 08/30/17 00:59 Last Admin: 07/31/17 05:29 Dose: 50 mls Morphine Sulfate (Morphine) 4 mg IVP EDNOW ONE Stop: 07/30/17 22:26 Last Admin: 07/31/17 05:27 Dose: Not Given Nitroglycerin (Nitrostat) 0.4 mg SL Q5M PRN PRN Reason: Chest Pain Last Admin: 07/30/17 22:29 Dose: 0.4 mg Nitroglycerin (Transderm-Nitro) 0.4 mg TD ONCE ONE Stop: 07/31/17 16:31 Last Admin: 07/31/17 16:41 Dose: 0.4 mg Ondansetron HCl (Zofran) 4 mg IVP EDNOW ONE Stop: 07/30/17 22:26 Last Admin: 07/31/17 01:18 Dose: Not Given Ranolazine (Ranexa) 500 mg PO ONCE ONE Stop: 07/31/17 16:31 Last Admin: 07/31/17 16:44 Dose: 500 mg Testosterone Cypionate (Testosterone Im Syringe) 200 mg IM Q14D [facility] Stop: 01/27/18 11:44 Last Admin: 07/31/17 14:08 Dose: Not Given Departure - Departure Disposition: [facility] Acute Clinical Impression: SINGH (acute kidney injury), Thrombocytopenia, Hypoxia Chest pain Qualifiers: Chest pain type: unspecified Qualified Code(s): R07.9 - Chest pain, unspecified Anemia Qualifiers: Anemia type: other cause Other causes of anemia: other cause, not classified Qualified Code(s): D64.89 - Other specified anemias Condition: Fair
--- NOTE | 2017-07-30 22:14 | EDPHY ---
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 Solis Espinal with Cardiology. Presents emergency room with substernal left-sided chest pain. Dull ache. Nonradiating. Started 730 or approximately 3 hours ago. It started at rest. No shortness of breath. The pain does not radiate anywhere specifically does not go to his back jaw or arm. Pain is still present. Patient does report taking 2 nitroglycerin tabs without any relief additionally foot nitro patch on. Decided come the emergency room as the pain continue 06/03. Additionally this patient's room air saturation 79% on room air. He was 3 L nasal cannula at night no oxygen during the day and less needed. Past Medical History: Coronary artery disease with stents, CABG, hypertension hyperlipidemia, Atypical chronic myeloid leukemia, chronic kidney disease, non STEMI Past Surgical History: CABG, PTCA, right chest port Social History: Denies daily use of drugs alcohol tobacco. Resides at [place]. at bedside. Son at bedside. Family History: Noncontributory ROS REVIEW OF SYSTEMS: A comprehensive 10 point review of systems is otherwise negative aside from elements mentioned in the history of present illness. Exam Constitutional appears well nontoxic triage nursing summary reviewed, vital signs reviewed, awake/alert. Eyes normal conjunctivae and sclera, EOMI, PERRLA. HENT normal inspection, atraumatic, moist mucus membranes, no epistaxis, neck supple/ no meningismus, no raccoon eyes. Respiratory clear to auscultation bilaterally, normal breath sounds, no respiratory distress, no wheezing. Cardiovascular rate normal, regular rhythm, no murmur, no edema, distal pulses normal. Gastrointestinal soft, non-tender, no rebound, no guarding, normal bowel sounds, no distension, no pulsatile mass. Genitourinary no CVA tenderness. Musculoskeletal no midline vertebral tenderness, full range of motion, no calf swelling, no tenderness of extremities, no meningismus, good pulses, neurovascularly intact. Skin pink, warm, & dry, no rash, skin atraumatic. Neurologic awake, alert and oriented x 3, AAOx3, moves all 4 extremities equally, motor intact, sensory intact, CN II-XII intact, normal cerebellar, normal vision, normal speech. Psychiatric normal mood/affect. Heme/Lymph/Immune no lymphadenopathy. Differential diagnosis includes but is not limited to: ACS, atypical chest pain , pneumothorax, pneumonia, pulmonary embolism, aortic dissection, congestive heart failure, tumor, musculoskeletal pain, esophageal pain, GERD, peptic ulcer disease, pancreatitis Medical Decision Making: Plan for this patient IV establishment or access his port, full-dose aspirin, 3rd dose of nitroglycerin, if this does not relieve his pain IV morphine will be ordered, chest x-ray, check troponin EKG. Rule out acute coronary syndrome. Re-evaluation: EKG interpretation by me on record in [email or web address] system. Impression time of EKG 2221, this is sinus rhythm rate of 97 Q-waves noted V1 V2 V3 slight ST depression in V5 V6. T-wave abnormality aVL. Otherwise no ST elevation. When I compare this EKG to his old EKG dated 06/08/2017 similar morphology. 2239: Patient's chest x-ray reviewed one-view. Cardiomegaly present. Bilateral pulmonary edema present. Will hold patient's IV fluids. Will check BNP. May need that dose IV Lasix. 2250: Patient was given a 3rd dose of nitroglycerin. His chest pain has resolved. At this time. Patient notified tells of his chest pain returns. 2302: This patient denies any infectious symptoms to me. Denies chills fever productive cough. Denies significant shortness of breath. WBC count reviewed 163,000. 2314: Spoke with Dr. June with Oncology. Will see and evaluate the patient tomorrow. 2316: Given the density rates on his chest x-ray I will cover him just in case with IV vancomycin 1 g and IV Zosyn for broad-spectrum antibiotic coverage in the setting of atypical CML. This patient certainly does have a mixed picture with hypoxia and infiltrates on his chest x-ray could also be heart failure given his significant cardiac history. Waiting his procalcitonin and BNP. I have held off IV fluids at this time. 2317: Plan is for admission to telemetry for chest discomfort. EKG is nonischemic. Chest pain-free at this time. Oncology has been consulted. Broad -spectrum antibiotics have been given. Also noted [place] [address]. Elevated BUN and creatinine. 2323: Patient is hemodynamically stable. I have consult the hospitalist service for admission for chest pain and hypoxia. Patient will be admitted to the medicine service with Oncology consult. Admission to PCU for full telemetry monitoring giving significant cardiac history and chest pain. Troponin is still pending at this time. BNP still pending at this time. Procalcitonin pending at this time. Broad-spectrum antibiotics have been given. Full-dose aspirin. I have not given him heparin or Lovenox as he has an acute kidney injury as well as severe thrombocytopenia 35,000. H&H are low. But does not necessitate an acute blood transfusion at this time. Lactic acid noted to be less than 2. Critical Care: Total Critical Care Time Spent Managing this Patient: 65 Minutes. This time was spent Exclusively with this patient. This Care was exclusive of procedures. The Organ System/life at risk was Cardiac, Pulmonary. This Patient was in Critical Condition because hypoxia, chest pain, pulmonary infiltrates, thrombocytopenia, anemia, acute kidney injury Source: Patient - Personal History Current Tetanus/Diphtheria Vaccine: No - Medical/Surgical History Hx Asthma: No Hx Chronic Respiratory Disease: No Hx Diabetes: No Hx Cardiac Disease: Yes Hx Renal Disease: No Hx Cirrhosis: No Hx Alcoholism: No Hx HIV/AIDS: No Hx Splenectomy or Spleen Trauma: No Other PMH: CML, CBG '15 Cardiac Stents "05, "06, "08, "09, CAD, HTN, nephrolithiasis, BPH, [place] x2 - Social History Smoking Status: Former smoker Constitutional: Initial Vital Signs Heart Rate 81 07/30/17 22:11 Respiratory Rate 16 07/30/17 22:11 Blood Pressure 140/68 H 07/30/17 22:11 O2 Sat (%) 97 07/30/17 22:11 O2 Delivery Mode Nasal Cannula O2 (L/minute) 4 Allergies/Adverse Reactions: No Known Allergies Allergy (Verified 07/27/14 11:38) Home Medications: Medication Instructions Recorded Finasteride [Proscar 5 MG (*)] 5 mg PO HS 07/08/12 Gabapentin [Neurontin 400 MG (*)] 400 mg PO HS 07/27/14 Herbals/Supplements -Info Only 1 ea PO DAILY 07/27/14 Tamsulosin HCl [Flomax 0.4 MG (*)] 0.4 mg PO HS 07/27/14 Aspirin [Aspirin 81mg (*)] 81 mg PO HS 02/23/17 Testosterone IM [Testosterone 200 mg IM Q14D 02/23/17 100mg/ml IM inj (*)] Cholecalciferol Vit D3 [Vitamin D3 5,000 units PO HS 03/06/17 (*)] Isosorbide Mononitrate [Imdur 30 30 mg PO HS 03/06/17 mg (*)] Nitroglycerin [Nitrostat 0.4 mg 0.4 mg SL Q5M PRN 03/06/17 (*)] Ranolazine [Ranexa] 500 mg PO BID 06/08/17 Carvedilol [Coreg (*)] 6.25 mg PO BIDMEAL #60 tab 06/11/17 Nitroglycerin [Transderm-Nitro 0.4 0.4 mg TD DAILY #30 patch 06/11/17 mg/hr (*)] Folic Acid [Folic Acid 1 MG (*)] 1 mg PO DAILY 07/31/17 Furosemide [Lasix] 40 mg PO BID 07/31/17 Potassium Cl [Klor-Con 20 meq (*)] 20 meq PO DAILY 07/31/17 Rosuvastatin Calcium [Crestor 20mg 20 mg PO HS 07/31/17 (*)] Ruxolitinib Phosphate [Jakafi] 5 mg PO BID 07/31/17 Medical Decision Making - Data Points Laboratory Results: Laboratory Results 07/30/17 22:45 07/30/17 22:45 Medications Given: Aspirin (Aspirin) 81 mg PO [facility] Stop: 01/27/18 20:59 Last Admin: 07/31/17 20:35 Dose: 81 mg Carvedilol (Coreg) 6.25 mg PO BIDMEAL [facility] Stop: 01/27/18 17:59 Last Admin: 07/31/17 18:18 Dose: 6.25 mg Cholecalciferol (Vitamin D) 5,000 units PO [facility] Stop: 01/27/18 20:59 Last Admin: 07/31/17 20:34 Dose: 5,000 units Finasteride (Proscar) 5 mg PO [facility] Stop: 01/27/18 20:59 Last Admin: 07/31/17 20:35 Dose: 5 mg Furosemide (Lasix) 40 mg PO BIDDIUR [facility] Stop: 01/27/18 14:59 Last Admin: 07/31/17 14:21 Dose: 40 mg Gabapentin (Neurontin) 400 mg PO HS [facility] Stop: 01/27/18 20:59 Last Admin: 07/31/17 20:35 Dose: 400 mg Isosorbide Mononitrate (Imdur) 30 mg PO [facility] Stop: 01/27/18 20:59 Last Admin: 07/31/17 20:35 Dose: 30 mg Miscellaneous Medication (Ruxolitinib Phosphate [Jakafi]) 5 mg PO BID [facility] Stop: 01/27/18 20:59 Last Admin: 07/31/17 20:35 Dose: Not Given Nitroglycerin (Nitrostat) 0.4 mg SL Q5M PRN PRN Reason: Chest Pain Stop: 01/26/18 23:47 Last Admin: 07/31/17 17:22 Dose: 0.4 mg Ranolazine (Ranexa) 500 mg PO BID [facility] Stop: 01/27/18 20:59 Last Admin: 07/31/17 20:35 Dose: 500 mg Rosuvastatin Calcium (Crestor) 20 mg PO [facility] Stop: 01/27/18 20:59 Last Admin: 07/31/17 20:35 Dose: 20 mg Tamsulosin HCl (Flomax) 0.4 mg PO [facility] Stop: 01/27/18 20:59 Last Admin: 07/31/17 20:35 Dose: 0.4 mg Discontinued Medications Aspirin (Aspirin) 324 mg PO EDNOW ONE Stop: 07/30/17 22:15 Last Admin: 07/30/17 22:29 Dose: 324 mg Furosemide (Lasix Injection) 20 mg IVP ONCE ONE Stop: 07/31/17 00:38 Last Admin: 07/31/17 01:55 Dose: 20 mg Sodium Chloride (Ns) 500 mls @ 1,000 mls/hr IV EDNOW ONE PRN Reason: Protocol Stop: 07/30/17 22:43 Last Admin: 07/31/17 00:09 Dose: Not Given Piperacillin/Tazobactam/Dextrose (Zosyn (Premix)) 100 mls @ 200 mls/hr IV ONCE ONE PRN Reason: Protocol Stop: 07/30/17 23:35 Last Admin: 07/31/17 01:34 Dose: Not Given Vancomycin/Sodium Chloride (Vancomycin 1 Gm (Premix)) 250 mls @ 250 mls/hr IV EDNOW ONE PRN Reason: Protocol Stop: 07/31/17 00:14 Last Admin: 07/30/17 23:55 Dose: 250 mls Piperacillin/Tazobactam/Dextrose (Zosyn 2.25 Gm (Premix)) 50 mls @ 100 mls/hr IV Q6 [facility] Stop: 08/30/17 00:59 Last Admin: 07/31/17 05:29 Dose: 50 mls Morphine Sulfate (Morphine) 4 mg IVP EDNOW ONE Stop: 07/30/17 22:26 Last Admin: 07/31/17 05:27 Dose: Not Given Nitroglycerin (Nitrostat) 0.4 mg SL Q5M PRN PRN Reason: Chest Pain Last Admin: 07/30/17 22:29 Dose: 0.4 mg Nitroglycerin (Transderm-Nitro) 0.4 mg TD ONCE ONE Stop: 07/31/17 16:31 Last Admin: 07/31/17 16:41 Dose: 0.4 mg Ondansetron HCl (Zofran) 4 mg IVP EDNOW ONE Stop: 07/30/17 22:26 Last Admin: 07/31/17 01:18 Dose: Not Given Ranolazine (Ranexa) 500 mg PO ONCE ONE Stop: 07/31/17 16:31 Last Admin: 07/31/17 16:44 Dose: 500 mg Testosterone Cypionate (Testosterone Im Syringe) 200 mg IM Q14D [facility] Stop: 01/27/18 11:44 Last Admin: 07/31/17 14:08 Dose: Not Given Departure - Departure Disposition: [facility] Acute Clinical Impression: SINGH (acute kidney injury), Thrombocytopenia, Hypoxia Chest pain Qualifiers: Chest pain type: unspecified Qualified Code(s): R07.9 - Chest pain, unspecified Anemia Qualifiers: Anemia type: other cause Other causes of anemia: other cause, not classified Qualified Code(s): D64.89 - Other specified anemias Condition: Fair
--- NOTE | 2017-07-30 22:24 | CPEKG ---
Heart Rate: 97 RR Interval: 619 P-R Interval: 204 QRSD Interval: 84 QT Interval: 356 QTC Interval: 452 P Shock: 61 QRS Shock: -58 T Wave Shock: 119 EKG Severity - ABNORMAL ECG - EKG Impression: SINUS RHYTHM EKG Impression: LAD, CONSIDER LAFB OR INFERIOR INFARCT EKG Impression: ANTERIOR INFARCT, OLD Electronically Signed By: Piyush Golden 31-Jul-2017 07:00:09
--- NOTE | 2017-07-30 22:24 | CPEKG ---
Heart Rate: 97 RR Interval: 619 P-R Interval: 204 QRSD Interval: 84 QT Interval: 356 QTC Interval: 452 P [place]: 61 QRS [place]: -58 T Wave [place]: 119 EKG Severity - ABNORMAL ECG - EKG Impression: SINUS RHYTHM EKG Impression: LAD, CONSIDER LAFB OR INFERIOR INFARCT EKG Impression: ANTERIOR INFARCT, OLD Electronically Signed By: Piyush Golden 31-Jul-2017 07:00:09
[2017-07-30] MEDS ORDERED: ONDANSETRON 4 MG/2 ML VIAL IVP ONE (22:25)
[2017-07-30 22:58] LABS: PLATELET COUNT 35 10^3/uL (150-400)
[2017-07-30 23:03] LABS: INR 1.25 (0.83-1.16); PROTIME(PATIENT) 15.7 SEC (12.0-15.0)
[2017-07-30] MEDS ORDERED: PIPERACILLIN/TAZO 4.5 GM/DEX 100 ML IV ONE (23:06)
[2017-07-30 23:11] LABS: CREATINE KINASE 83 IU/L (0-224)
[2017-07-30] MEDS ORDERED: VANCOMYCIN HCL/NORMAL SALINE 250 ML IV ONE (23:15)
[2017-07-30] MEDS ORDERED: ACETAMINOPHEN 325 MG TAB PO PRN (23:45)
[2017-07-30] MEDS ORDERED: ONDANSETRON 4 MG/2 ML VIAL IVP PRN (23:45)
--- NOTE | 2017-07-30 23:51 | PDGENHP ---
History and Physical - Chief Complaint chest pain - History of Present Illness Source - patient provides history and appears reliable. Case discussed with ED provider and EMR including last hospital stay 05/2017 was reviewed. HPI - Pleasant 81 yo M with pmx significant for CAD with angina, systolic/ diastolic CHF, CKD stage 3 baseline cr 1.7, atypical CML with associated anemia/ thrombocytopenia, presents to the ED today for persistent substernal chest pressure. sx started approximately 730pm when patient was sitting down to take evening medications before bed. Patient with persistent angina and took nitroglycerin x 2 at home, placed a nitro patch and even took additional ranexa dosing without improvement in his chest discomfort. He denies any fevers/chills /cough/SOB and had been otherwise feeling at his baseline. He reports chronic LE edema that has improved since last hospital stay with po lasix. He denies any orthopnea or PND. He normally requires 3lpm HS oxygen however when he presented to ED O2 sat noted to be 79% on RA. Patient states that he was only taking shallow breaths due to increasing chest pain associated with respirations but not because he was Short of air. Patient's last hospitalization in May 2017 was significant for NSTEMI with concerns for instent restenosis. Cardiology was consulted at that time and discussed with patient no additional interventions appropriate and medications are maximized. In the ED, patient was placed on oxygen and given additional SL nitro with resolution of his pain. he was also given 324mg Aspirin. History Information - Allergies/Home Medication List Allergies/Adverse Reactions: No Known Allergies Allergy (Verified 07/27/14 11:38) Home Medications: Finasteride [Proscar 5 MG (*)] 5 mg PO HS 07/08/12 [Last Taken 06/07/17] Rosuvastatin Calcium [Crestor 40mg (*)] 20 mg PO HS 07/08/12 [Last Taken ] Gabapentin [Neurontin 400 MG (*)] 400 mg PO HS 07/27/14 [Last Taken 06/07/17] Herbals/Supplements -Info Only 1 ea PO DAILY 07/27/14 [Last Taken 06/08/17] Tamsulosin HCl [Flomax 0.4 MG (*)] 0.4 mg PO HS 07/27/14 [Last Taken 06/07/17] Aspirin [Aspirin 81mg (*)] 81 mg PO DAILY 02/23/17 [Last Taken 06/07/17] Testosterone IM [Testosterone 100mg/ml IM inj (*)] 200 mg IM Q14D 02/23/17 [ Last Taken 03/06/17] Cholecalciferol Vit D3 [Vitamin D3 (*)] 5,000 units PO HS 03/06/17 [Last Taken 06/07/17] Isosorbide Mononitrate [Imdur 30 mg (*)] 30 mg PO HS 03/06/17 [Last Taken ] Nitroglycerin [Nitrostat 0.4 mg (*)] 0.4 mg SL Q5M PRN 03/06/17 [Last Taken ] Hydroxyurea [Hydrea 500 mg (*)] 500 mg PO Q2D 06/08/17 [Last Taken 06/07/17] Ranolazine [Ranexa] 500 mg PO BID 06/08/17 [Last Taken Unknown] I have personally reviewed and updated: family history, medical history, social history, surgical history - Past Medical History Additional medical history: CAD with angina, hx NSTEMI. atypical CML. HLD, HTN. systolic/diastolic CHF. CKD stage 3 baseline cr 1.7. BPH, hypogonadism on testosterone replacement. kidney stone. gout. instent restenosis multiple times. anemia, thrombocytopenia. transfusions - Surgical History Additional surgical history: CABG x2. cardiac cath/PCI multiple - before and after cabg. cataract surgery. right chest port - Family History Positive for: CAD (father diseased age 62 CAD) - Social History Smoking Status: Former smoker Alcohol Use: None Drug Use: None Additional social history: retired and lives with . COR - FULL Review of Systems Review of Systems: ROS: 10pt was reviewed & negative except for what was stated in HPI & below Constitutional: Reports: no symptoms. Denies: chills, fever, recent illness EENMT: Reports: no symptoms. Denies: blurred vision, double vision, nose congestion, sore throat Cardiac: Reports: chest pain, edema. Denies: lightheadedness, palpitations, syncope Respiratory: Reports: no symptoms. Denies: cough, shortness of breath Gastrointestinal: Reports: no symptoms. Denies: vomitting, diarrhea, nausea Genitourinary: Reports: no symptoms. Denies: dysuria, hematuria Muscolosketal: Reports: back pain, muscle pain (intermittent LE muscle cramping) Skin: Reports: no symptoms. Denies: rash Neurological: Reports: numbness, tingling (chronically toes bilaterally. ). Denies: anxiety, depressed, headache, weakness Hematologic/Lymphatic: Reports: anemia, easy bruising Physical Exam Physical Exam: Temp Pulse Resp BP Pulse Ox 83 16 111/64 95 07/30/17 23:36 07/30/17 23:36 07/30/17 23:36 07/30/17 23:36 O2 (L/minute) 4 Lab Data & Imaging Review 07/30/17 22:45 07/30/17 22:45 WBC 163.64 10^3/uL (3.80-9.50) H* 07/30/17 22:45 RBC 2.60 10^6/uL (4.40-6.38) L 07/30/17 22:45 Hgb 8.0 g/dL (13.7-17.5) L 07/30/17 22:45 Hct 24.8 % (40.0-51.0) L 07/30/17 22:45 MCV 95.4 fL (81.5-99.8) 07/30/17 22:45 MCH 30.8 pg (27.9-34.1) 07/30/17 22:45 MCHC 32.3 g/dL (32.4-36.7) L 07/30/17 22:45 RDW 21.2 % (11.5-15.2) H 07/30/17 22:45 Plt Count 35 10^3/uL (150-400) L 07/30/17 22:45 MPV TNP 07/30/17 22:45 Neut % (Auto) Not Reported 07/30/17 22:45 Lymph % (Auto) Not Reported 07/30/17 22:45 [place] % (Auto) Not Reported 07/30/17 22:45 Eos % (Auto) Not Reported 07/30/17 22:45 Baso % (Auto) Not Reported 07/30/17 22:45 Nucleat RBC Rel Count 0.4 % (0.0-0.2) H 07/30/17 22:45 Absolute Neuts (auto) Not Reported 07/30/17 22:45 Absolute Lymphs (auto) Not Reported 07/30/17 22:45 Absolute Monos (auto) Not Reported 07/30/17 22:45 Absolute Eos (auto) Not Reported 07/30/17 22:45 Absolute Basos (auto) Not Reported 07/30/17 22:45 Absolute Nucleated RBC 0.59 10^3/uL (0-0.01) H 07/30/17 22:45 Immature Gran % Not Reported 07/30/17 22:45 Immature Gran # Not Reported 07/30/17 22:45 PT 15.7 SEC (12.0-15.0) H 07/30/17 22:45 INR 1.25 (0.83-1.16) H 07/30/17 22:45 APTT 34.4 SEC (23.0-38.0) 07/30/17 22:45 D-Dimer 0.76 ug/mLFEU (0.00-0.50) H 07/30/17 22:45 VBG Lactic Acid 1.2 mmol/L (0.7-2.1) 07/30/17 23:07 Sodium 142 mEq/L (134-144) 07/30/17 22:45 Potassium 3.9 mEq/L (3.5-5.2) 07/30/17 22:45 Chloride 101 mEq/L (97-110) 07/30/17 22:45 Carbon Dioxide 28 mEq/l (22-31) 07/30/17 22:45 Anion Gap 13 mEq/L (8-16) 07/30/17 22:45 BUN 52 mg/dL (7-23) H 07/30/17 22:45 Creatinine 3.3 mg/dL (0.7-1.3) H 07/30/17 22:45 Estimated GFR 18 07/30/17 22:45 Glucose 134 mg/dL (70-100) H 07/30/17 22:45 Calcium 8.9 mg/dL (8.5-10.4) 07/30/17 22:45 Magnesium 2.2 mg/dL (1.6-2.3) 07/30/17 22:45 Total Bilirubin 1.6 mg/dL (0.1-1.4) H 07/30/17 22:45 Conjugated Bilirubin 0.5 mg/dL (0.0-0.5) 07/30/17 22:45 Unconjugated Bilirubin 1.1 mg/dL (0.0-1.1) 07/30/17 22:45 AST 31 IU/L (17-59) 07/30/17 22:45 ALT 32 IU/L (21-72) 07/30/17 22:45 Alkaline Phosphatase 131 IU/L (38-126) H 07/30/17 22:45 Creatine Kinase 83 IU/L (0-224) 07/30/17 22:45 CK-MB (CK-2) Fraction 1.91 ng/mL (0.00-3.19) 07/30/17 22:45 Troponin I 0.043 ng/mL (0.000-0.034) H 07/30/17 22:45 NT-Pro-B Natriuret Pep 7670 pg/mL (0-450) H 07/30/17 22:45 Total Protein 5.8 g/dL (6.3-8.2) L 07/30/17 22:45 Albumin 3.7 g/dL (3.5-5.0) 07/30/17 22:45 Lipase 201 IU/L (23-300) 07/30/17 22:45 Imaging Review: Chest 1 View, 07/30/2017 History: Chest Pain Comparison: Chest x-ray 06/08/2017 Findings: Single portable upright view of the chest is submitted for interpretation. The right costophrenic angle is not included in this image. Lines/tubes: Right chest port catheter and 6 median sternotomy closure wires are not significantly changed. Lungs: Left greater than right lower lobe predominant airspace opacities. Pleura: No pleural effusion or pneumothorax. Heart and mediastinum: Coronary artery stent is in place. Cardiac silhouette is upper limit normal in size. Bones and soft tissues: No acute osseous abnormality. Bilateral acromioclavicular osteoarthrosis. Soft tissues are grossly normal. Impression: Left greater than right airspace opacities concerning for multifocal pneumonia and/or edema. Visualized and Interpreted Chest x-ray results: Yes Chest X-Ray results: infiltrate (pneumonia vs. edema) Visualized and Interpreted EKG results: Yes Assessment & Plan Assessment: Pleasant 81 yo M with hx CAD/angina maximized on medical therapy, CML, CKD3 who presents to ED today with substernal chest pain 1. angina - patient with known occlusive disease and history of instent restenosis that is not amenable to further intervention. Patient previously evaluated for NSTEMI 05/2017. continue nitroglycerin prn. patient placed nitro patch prior to arrival. renvela prn. monitor on PCU for cardiac monitoring. cardiology consultation in AM. 2. hypoxia - concerning for CHF exacerbation vs. PNA vs PE. VQ scan in AM. trending troponin. diuresis ordered. patient received vanc/zosyn for broad spectrum coverage pt denies fevers/chills/cough but also limited sx c/w CHF. procalcitonin mildly elevated but pt with multiple acute issues including renal failure/cardiac decompensation so value in this setting is less certain. will continue antibiotics at this time. 3. ARF on CKD 3 - suspecting CHF decompensation with decreased renal perfusion and demar. baseline creatinine approximately 1.7 now 3.3. monitor renal function closely. rx consult to assist with dosing of meds. 4. CML - oncology consulted from ED. no further recommendations and will see patient in AM. 5. acute on chronic systolic/diastolic CHF decompensated - lasix. 6. infiltrates on xray - infectious vs. edema possibly component of both but patient without complaint of fevers/chills/cough or other sx. hypoxic on arrival with increased o2 needs from baseline. continue antibiotics as above pending cultures. lasix x 1 now and will monitor renal function before continuing but again concern for decreased renal perfusion in setting of CHF so anticipate creatinine will improve. 7. elevated ddimer - mildly elevated could be falsely elevated in setting of acute on cKD however patient still with increased risk and hypoxic. VQ scan for AM. no anticoagulation in setting of anemia/thrombocytopenia 8. elevated troponin - pt with known occlusive CAD as above but likely decreased clearance in setting of acute on ckd. 9. anemia - stable h/h. no evidence of active bleeding. continue to monitor closely. 10. thrombocytopenia - stable from discharge. continue to monitor. 11. coagulopathy - monitor inr. 12. hyperglycemia - nonfasting lab. no hx DM II. continue to monitor. 13. hyperbilirubinemia - down trending from last hospital stay. no abdominal pain or jaundice. monitor lfts. 14. BPH - continue finasteride and flomax. FEN - IVF. electrolyte replacement prn. PPX -SCDS as tolerated. holding anticoagulation in setting of anemia/ thrombocytopenia COR - FULL Dispo - Admit observation pending re-assessment in AM following above treatments.
[2017-07-31] MEDS ORDERED: FUROSEMIDE 20 MG/2 ML VIAL IVP ONE (00:37)
[2017-07-31] MEDS: PIPERACILLIN/TAZO 2.25 GM/DEX 50 ML IV SCH ×2 (01:55→05:29)
[2017-07-31] MEDS ORDERED: PIPERACILLIN/TAZO 3.375 GM/DEX 50 ML IV SCH (06:00)
[2017-07-31] MEDS ORDERED: HEPARIN 5,000 UNIT/0.5 ML SYR SC SCH (06:00)
[2017-07-31 06:06] LABS: CREATINE KINASE 48 IU/L (0-224)
[2017-07-31 06:16] LABS: PLATELET COUNT 29 10^3/uL (150-400)
[2017-07-31] MEDS ORDERED: ENOXAPARIN 40 MG/0.4 ML SYR SC SCH (09:00)
[2017-07-31] MEDS ORDERED: NITROGLYCERIN 0.4 MG BTL SL PRN (11:33)
[2017-07-31] MEDS ORDERED: TESTOSTERONE IM 100 MG/ML SYRINGE IM SCH (11:45)
--- NOTE | 2017-07-31 12:29 | GCON ---
[f rep st] CONSULTATION HISTORY OF PRESENT ILLNESS: This is an 81-year-old with a past medical history of coronary artery disease status post CABG, status post multiple PCIs with easy restenosis of stents, diastolic heart failure, renal failure with baseline creatinine of 1.7, atypical CML with associated anemia, thrombocytopenia, who presented to the ER with substernal chest pain that started about 10:30 p.m. when he was sitting to take his evening medicine. The chest pain was persistent. He took 2 nitro at home, placed a nitroglycerin patch and even took additional Ranexa dose without any improvement. He denies any fevers, chills, or shortness of breath. He has chronic left great extremity edema. Came to the emergency room, was given another nitro and his pain resolved. Since then, he has been asymptomatic. He normally requires 3 L nighttime oxygen at home. He did complain of chest pain due to increasing shortness of breath with respiration. The patient's last hospitalization was in May [address] elevation VA. Then, his troponin was 1.17. His last stress test showed anterior VA with magali-infarct ischemia. His last cardiac catheterization was done in February of 2017 when he had diagonal stenting with bare metal stent. However, as per the detailed report of Dr. Francis, the patient is not a candidate for any invasive procedure because of the easy restenoses. Review of his last interventional procedure on 03/08/2017 shows that the left main artery is normal, left circumflex is normal and it is a left dominant system. RCA is occluded. The LAD was occluded after the first septal and diagonal artery was opened up; however, it is deemed, at this point in time , that has already occluded. The patient's last echocardiogram was done on the 06 of March, which showed EF of 45%-50% with mid inferoseptal, apical and apical lateral hypokinesis, moderate diastolic dysfunction, mild MR, mild to moderate pulmonary hypertension with mild TR, mild AI. ALLERGIES: None. HOME MEDICATIONS: Includes finasteride, Crestor, gabapentin, Flomax, aspirin, testosterone, cholecalciferol, Imdur, nitroglycerin, hydroxy urea, and Ranexa. PAST MEDICAL HISTORY: Coronary artery disease, details as mentioned above. Renal failure with baseline creatinine of 1.7. Benign prostatic hypertrophy. Hypogonadism on testosterone replacement. Kidney stone, gout, anemia thrombocytopenia, CABG x2, cath and PCI multiple times as mentioned above. FAMILY HISTORY: Positive for coronary artery disease. SOCIAL HISTORY: Former smoker. No alcohol use. No significant drug abuse. The patient is retired and lives with his . REVIEW OF SYSTEMS: Other than the above, 10-point review of system is negative. PHYSICAL EXAM: VITAL SIGNS: Blood pressure of 110/60, pulse of 63, respiratory rate 16. HEENT: Pupils equal, reacting to light and accommodating. NECK: Supple. No lymphadenopathy. No thyromegaly. No JVD. CHEST: Good air entry bilaterally. CARDIAC: No rales, rhonchi, rub. S1, S2 regular. No S3. No murmurs. ABDOMEN: Soft, nontender. No guarding, rigidity. Bowel sounds present. EXTREMITIES: No edema. LAB VALUES: Evaluated. BUN of 52, creatinine 3.3, white count of 163, platelet count 35,000. Troponin elevated at 0.043. EKG shows normal sinus rhythm but inferior wall VA and large anterior VA noted on EKG. IMPRESSION AND PLAN: This is an 81-year-old with coronary artery disease with coronary artery bypass graft and percutaneous coronary intervention with multiple in-stent stenoses likely related to predisposition to thrombocytosis with chronic myeloid leukemia. Furthermore, pt has renal failure with a creatinine baseline of 1.7, now at 3.3. Based on the patient's history as well as comorbidities and symptoms, after discussing with Dr. Francis, medical management would be the way to go because of the high risk for in-stent stenosis, which has happened on many occasions with this patient. The patient's medical management can be further titrated up by increasing the dose of Coreg or increasing the dose of Imdur. At this point in time, I would recommend increasing Imdur to 60 mg and gradually to 90 mg. Further increase in Ranexa is also possible if the above treatment does not help in managing his chronic stable angina. Renal failure. This is another reason why the patient would not be a good candidate for invasive options and, if an invasive option is not considered, then nuclear stress test at current point in time has no role in his care. Thank you for letting us participate in the patient's care. Feel free to call us with questions. /[id number]/MODL MTDD
--- NOTE | 2017-07-31 13:13 | GCON ---
[f rep st] CONSULTATION INPATIENT HEMATOLOGY CONSULTATION DATE OF CONSULTATION: 07/31/2017 OUTPATIENT CONTAINER PACKER OPERATOR: Dr. Maryann Gilbert. REASON FOR CONSULTATION: Atypical chronic myeloid leukemia. HISTORY OF PRESENT ILLNESS: The patient is an 81-year-old man with a history of atypical chronic myeloid leukemia. He presented with extreme leukocytosis with mostly mature cells in the peripheral blood, anemia, and thrombocytopenia. Cytogenetics did not reveal a [place] chromosome. He has been treated with hydroxyurea in the past and then 1 cycle of decitabine over the summer. These maneuvers were not particularly effective, and he was then started on ruxolitinib 5 mg b.i.d. which he has been on for about 2 months. This has resulted overall in a reduction in his white count from the mid 200s to about 100 with some reduction in his red blood cell transfusion requirement. He has felt about the same on this medication. He also has extensive cardiac history, and is status post multiple stents, and may have some congestive heart failure. He presented to the hospital yesterday with acute onset chest pain. He was found to be hypoxemic, and also had some pulmonary infiltrates and elevated BNP of 7,470. He felt better with the application of oxygen and nitroglycerin, and is currently pain free. Also, of note, his creatinine went from a baseline of around 2 up to 3.1 today. Currently, he says he feels well. PAST MEDICAL HISTORY: 1. 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 2. Coronary artery disease. 3. Chronic renal insufficiency. CURRENT MEDICATIONS: Include: Aspirin, carvedilol, Proscar, gabapentin, Imdur , ranolazine, Crestor, testosterone injections, and ruxolitinib, though he is not currently taking that while he is in the hospital. ALLERGIES: He has no known drug allergies. FAMILY HISTORY: Noncontributory. SOCIAL HISTORY: Nonsmoker, nondrinker. Lives with family. REVIEW OF SYSTEMS: Aside from pertinent positives in HPI, 14-point review of systems is negative. EXAMINATION: VITAL SIGNS: His temperature was 36.8, blood pressure 100/44, heart rate 60, oxygen saturating 96% on 1.5 L. GENERAL: He is an elderly man in no acute distress. HEENT: Sclerae anicteric. Oropharynx clear. LUNGS: Clear to auscultation bilaterally, though with coarse sounds at the bases. CARDIAC: Regular rate, rhythm. No murmurs, gallops, rubs. ABDOMEN: Normoactive bowel sounds. Is nontender, not distended. EXTREMITIES: Trace edema. SKIN: No petechiae or purpura. He did have a small subconjunctival hemorrhage in the left eye. LABORATORY DATA: White count 138,000, hemoglobin 7.1, platelets of 29. Differential was 57% neutrophils, 9% bands, 7% lymphocytes, 15% monocytes, 2% metamyelocytes, 1% myelocytes, 4% promyelocytes, and 5% blasts. Sodium 145, potassium 3.6, chloride of 105, bicarb 30, BUN of 52, creatinine 3.1. Remainder of the LFTs were normal. IMPRESSION: This is an elderly gentleman with history of coronary disease, as well as atypical chronic myeloid leukemia. His disease seems relatively stable on the [place]. I do not think that his renal failure is directly related to it. One could posit that tumor lysis syndrome could cause renal failure, though he has been on a stable dose of the drug for several months, and tumor lysis would typically be seen with the onset of therapy. Because most of the circulating cells are mature, he is not at risk for leukostasis syndrome. I suspect that his renal impairment is likely cardiogenic due to poor cardiac output, possibly in the setting of ischemia, hypovolemia, or congestive heart failure. 1. Would recommend restarting the patient's ruxolitinib 5 mg b.i.d. He can use his own supply, as this may be difficult for the hospital to obtain. 2. Appreciate renal input from Dr. Cm. 3. We will check tumor lysis laboratories. Thank you for this consultation. I will continue to follow patient with you while he is in the hospital. /[id number]/MODL MTDD
--- NOTE | 2017-07-31 13:44 | GCON ---
[f rep st] CONSULTATION NEPHROLOGY CONSULTATION DATE OF CONSULTATION: 07/31/2017 REASON FOR CONSULTATION: Acute kidney injury on chronic kidney disease. HISTORY OF PRESENT ILLNESS: The patient is a very pleasant, 81-year-old male with a past medical his tory significant for several issues, including known coronary artery disease, chronic kidney disease, and CML. The patient had a baseline creatinine of near 1.7, and has been followed by Dr. Marquez in the past. The patient now presents with complaints of chest pain, and acute kidney injury on chronic kidney disease. He is a reasonably good historian. The patient states he was in his baseline state of health up until the evening before his admission. At that time, he began developing substernal chest pain. The patient presented to the emergency [facility], where he was noted to have hypoxemia with an oxygen saturation of 79%. Also, his creatinine was 3 .3, which is above his baseline. He otherwise denies symptoms of shortness of breath. Other signifi cant objective findings included a white count of [id number], hemoglobin of 8, and platelet count 35. On admission, his blood pressure was 111/64. His chest x-ray revealed some infiltrates, potentially co ngestive heart failure. The patient was placed on oxygen, and he did receive nitroglycerin. With this, his pain improved. H e has not appeared to have an infectious etiology. His creatinine is down slightly to 3.1 from 3.3. The patient states he was placed on a diuretic approximately 1 month ago. He did have edema, though states he no longer has this. His blood pressure typically does run in the low 100. He states that it has been somewhat lower during this hospitalization given he has been taking some nitroglycerin. He has to urinate 3-4 times at night. He states this is unchanged. Relating to his CML, his white b lood cell count is actually improved from that of several months ago. He did receive a dose of vanco mycin on admission. As relating to the above findings, we are asked by Dr. Albrecht to assist the patien t's renal diagnosis and management. PAST MEDICAL HISTORY: 1. Coronary artery disease with a history of a non-STEMI infarct. 2. Atypical CML. 3. Hypertension. 4. Systolic and diastolic heart failure. 5. CKD 3 with baseline creatinine 1.[address] Marquez. 6. Benign prostatic hypertrophy. 7. Hypogonadism. 8. History of nephrolithiasis. 9. Gout. 10. Thrombocytopenia. 11. Peripheral neuropathy. PAST SURGICAL HISTORY: Includes. 1. CABG x2. 2. Multiple cardiac interventions. 3. Cataract surgery. 4. Right internal jugular port. HOME MEDICATIONS: Tylenol p.r.n., aspirin 81 mg daily, carvedilol 6.25 mg b.i.d., vitamin D 5000 uni ts daily, Proscar 5 mg daily, folic acid 1 mg daily, gabapentin 4 mg q.h.s., Imdur 30 mg q.h.s., nitr oglycerin p.r.n., potassium chloride 20 mEq daily, Ranexa 500 mg twice daily, Crestor 20 mg daily, te stosterone IM every 14 days, tamsulosin 0.4 mg daily. FAMILY HISTORY: Noncontributory. SOCIAL HISTORY: The patient was born in [place] and lived in several states prior to being in [place] in 1955. After that time, he came to [place]. He has worked with the [employer]. He lives at home with his who is in reasonable health. He has not smoked cigarettes in 44 y ears. He denies alcohol use. REVIEW OF SYSTEMS: GENERAL: He denies fever, chills. He has occasional night sweats. He denies he adaches, visual disturbances, rhinitis or sore throat. RESPIRATORY: He denies cough or shortness of breath. CARDIOVASCULAR: He denies palpitations. He did have the aforementioned chest pain. GASTR OINTESTINAL: He has constipation, diarrhea or abdominal pain. GENITOURINARY: He does have to urina te 4 times a night. EXTREMITIES: He did have lower extremity edema but this is improved with diuret ics. He does have neuropathy in his feet. INTEGUMENT: He denies skin rashes or skin lesions. ENDOC RINE: He does not have a history of diabetes or thyroid disease. PHYSICAL EXAM: GENERAL: The patient is appropriate and alert. VITAL SIGNS: Temperature 36.8, puls e 60, blood pressure 100/44. EYES: The patient does have a left scleral hemorrhage. OROPHARYNX: C lear. NECK: No lymphadenopathy or thyromegaly. He does have the palpable port going into his right IJ. This made JVD difficult to interpret. LUNGS: Clear auscultation bilaterally. CARDIOVASCULAR: Regular rate and rhythm with a systolic murmur consistent with a mitral regurgitation. ABDOMEN: No ntender, no organomegaly. No bruits. AND RECTAL: Deferred. EXTREMITIES: Trace ankle edema. I NTEGUMENT: generally clear. NEUROLOGIC: No focal findings.. LABORATORY STUDIES: White count 138,000, hematocrit 22, platelets 29, 000. Sodium 145, potassium 3. 6, bicarb 30, creatinine 3.1. Troponin 0.184, albumin 3.3. IMPRESSION AND PLAN: 1. Acute kidney injury. The patient had acute kidney injury on chronic kidney disease. I do suspec t this is hemodynamically mediated. This could be related to recent diuretic administration. He cou ld also have hypoperfusion related to cardiac output issues. The latter could occur in the face of i schemia due to his anemia and underlying coronary artery disease. He also could have bladder outlet obstruction, neutrophilic infiltrate of his kidneys, although this seems unlikely, and progression. For now, we will check a urinalysis with microscopic exam. We will check a fractional excretion of s odium. His diuretics will be held for now. He is receiving oxygen and is no longer having chest loren n. I am hopeful these manipulations will improve his renal function. We will also check a bladder s can to ensure he does not have a postvoid residual. 2. Hematologic. The patient does have a markedly elevated white blood cell count. Concerns could b e made for hyper leukocytosis, especially with his cardiac symptoms and infiltrates. However, his ite blood cell count is actually significantly lower than it was earlier in the summer. In addition, he does not have significant blasts. I reviewed this with Dr. June. An LDH and uric acid level will be checked, but again it seems unlikely that this is the etiology of his renal issues. 3. Cardiac. The patient did seem to present with congestive heart failure and angina. These have i mproved with rest and oxygen. He has diuresed some, but I would not diurese further given his hyper leukocytosis. Dr. Espinal is his epic trainer, and may need to be consulted. Thank you for allowing us to participate in this gentleman's care. We will continue following closel y with you. /[id number]/MODL
[2017-07-31] MEDS: FUROSEMIDE 40 MG TAB PO SCH (14:21)
--- NOTE | 2017-07-31 14:58 | HOSPPROG ---
Hospitalist Progress Note Assessment/Plan: 81-year-old with a history of coronary artery disease (CABG and instent stenosis ) with ischemic cardiomyopathy, atypical AML and acute on chronic renal failure is admitted with chest pain. #. Chest pain: Pain could certainly be ischemic in nature however given his renal failure and his complex coronary artery disease the case was discussed with his primary mandarin chinese teacher Dr. Espinal as well as Dr. Toribio. At this time it is felt that he would benefit from medical management only and would not recommend further angiography at this time. * Possible increase Imdur and Ranexa will defer to Cardiology * Monitor chest pain and address other medical issues. * Will discuss transfusion with patient, may help cp and chf. #. Acute ischemic congestive heart failure with pulmonary edema and hypoxia. He has acute on chronic respiratory failure associated with this. Chest x-ray was personally reviewed and appears to be more edema rather than pneumonia. Additionally patient does not have cough fever at this time. * Follow symptoms and oxygen needs * Would not further diurese given his elevated white count and renal failure * Treat angina and rest and see if this improves the patient's symptoms #. Acute on chronic renal failure, appreciate Nephrology note. * Follow renal function without further diuresis * Await workup outlined in nephrology note #. 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 And likely not contributing significantly to his current issues however his white count is still quite elevated. Will monitor while in hospital, Oncology will follow up with outpatient. * Appreciate oncology consult will resume patient's outpatient chemotherapy #. Anemia: will give unit of blood, discussed with Patient and he is willing. May help renal function and cp and chf #. thrombocytopenia, no acute bleeding. recheck in am, consider tx. #. Hypertension: Blood pressure stable currently continue his current medications follow renal function #. Gout #. 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 Will discuss with Oncology. Patient will need additional midnight stay given acute congestive heart failure as well as multiple comorbidities noted above. Subjective: Patient denies chest pain currently. Still on chronic oxygen slightly more than his home dose. Objective: Vital Signs Temp Pulse Resp BP Pulse Ox 36.8 C 60 18 100/44 L 96 07/31/17 11:18 07/31/17 11:18 07/31/17 11:18 07/31/17 11:18 07/31/17 11:18 Laboratory Results 07/31/17 05:30 07/31/17 05:30 07/30/17 07/31/17 08/01/17 05:59 05:59 05:59 Intake Total 710 480 Output Total 400 300 Balance 310 180 PT 15.7 SEC (12.0-15.0) H 07/30/17 22:45 INR 1.25 (0.83-1.16) H 07/30/17 22:45 - Physical Exam Constitutional: no apparent distress, chronically ill appearing Eyes: PERRL, EOMI Ears, Nose, Mouth, Throat: moist mucous membranes Cardiovascular: regular rate and rhythym, systolic murmur, edema Respiratory: no respiratory distress, no rales or rhonchi, clear to auscultation , inspiratory crackles Gastrointestinal: normoactive bowel sounds, soft, non-tender abdomen Genitourinary: no bladder fullness Skin: warm, No normal color (Pale) Musculoskeletal: no joint effusions Neurologic: AAOx3 Psychiatric: interacting appropriately, not anxious, not encephalopathic Lymph, Heme, Immunologic: no cervical LAD ICD10 Worksheet Patient Problems: Problems Problem Status Onset SINGH (acute kidney injury) Acute Anemia Acute Chest pain Acute Hypoxia Acute Thrombocytopenia Acute Acute coronary syndrome Acute CML (chronic myelocytic leukemia) Acute Elevated troponin Acute Elevated white blood cell count Acute NSTEMI (non-ST elevated myocardial infarction) Acute Palliative care encounter Acute chronic disease mgmt/transitional care Acute
--- NOTE | 2017-07-31 15:32 | ASMTCMCOM ---
CM Note CM Note Notes: Patient admitted for chest pain and SINGH d/t diuretic use. Has a complex cardiac history including CAD and CABG. Patient deeply involved in coversation with port purser this afternoon. I spoke with his RN who says he is ambulating independently. No PT/OT evals were ordered; when patient discharged from [facility] in 06/10, he went home with his . No discharge needs anticipated; CM available if needs change. Date Signed: 07/31/2017 03:32 PM Electronically Signed By:Helen Shi RN
--- NOTE | 2017-07-31 15:32 | ASMTCMCOM ---
CM Note CM Note Notes: Patient admitted for chest pain and SINGH d/t diuretic use. Has a complex cardiac history including CAD and CABG. Patient deeply involved in coversation with drying machine back tender this afternoon. I spoke with his RN who says he is ambulating independently. No PT/OT evals were ordered; when patient discharged from [facility] in 06/10, he went home with his . No discharge needs anticipated; CM available if needs change. Date Signed: 07/31/2017 03:32 PM Electronically Signed By:Helen Shi RN
--- NOTE | 2017-07-31 15:32 | ASMTCMCOM ---
CM Note CM Note Notes: Patient admitted for chest pain and SINGH d/t diuretic use. Has a complex cardiac history including CAD and CABG. Patient deeply involved in coversation with soldering inspector this afternoon. I spoke with his RN who says he is ambulating independently. No PT/OT evals were ordered; when patient discharged from [facility] in 06/10, he went home with his . No discharge needs anticipated; CM available if needs change. Date Signed: 07/31/2017 03:32 PM Electronically Signed By:Helen Shi RN
[2017-07-31] MEDS ORDERED: RANOLAZINE 500 MG TAB.ER PO ONE (16:30)
[2017-07-31] MEDS ORDERED: NITROGLYCERIN 0.4 MG/HR PATCH TD ONE (16:30)
[2017-07-31] MEDS: CARVEDILOL 6.25 MG TAB PO SCH (18:18)
[2017-07-31] MEDS: CHOLECALCIFEROL VIT D3 1,000 UNITS TAB PO SCH (20:34)
[2017-07-31] MEDS: ISOSORBIDE MONONITRATE 30 MG TAB.SR PO SCH (20:35)
[2017-07-31] MEDS: TAMSULOSIN HCL 0.4 MG CAP PO SCH (20:35)
[2017-07-31] MEDS: RUXOLITINIB PHOSPHATE PO SCH (20:35)
[2017-07-31] MEDS: FINASTERIDE 5 MG TAB PO SCH (20:35)
[2017-07-31] MEDS: ASPIRIN 81 MG CHEWABLE TAB PO SCH (20:35)
[2017-07-31] MEDS: RANOLAZINE 500 MG TAB.ER PO SCH (20:35)
[2017-07-31] MEDS: GABAPENTIN 400 MG CAP PO SCH (20:35)
[2017-07-31] MEDS: ROSUVASTATIN CALCIUM 20 MG TAB PO SCH (20:35)
[2017-07-31] MEDS ORDERED: FUROSEMIDE 40 MG TAB PO SCH (21:00)
[2017-08-01] MEDS ORDERED: NITROGLYCERIN 0.4 MG/HR PATCH TD ONE (06:09)
[2017-08-01] MEDS: NITROGLYCERIN 0.4 MG/HR PATCH TD SCH (06:10)
[2017-08-01] MEDS: RANOLAZINE 500 MG TAB.ER PO SCH ×2 (06:10→20:15)
[2017-08-01] MEDS: FUROSEMIDE 40 MG TAB PO SCH (08:02)
[2017-08-01] MEDS: CARVEDILOL 6.25 MG TAB PO SCH ×2 (08:02→18:15)
[2017-08-01] MEDS: FOLIC ACID 1 MG TAB PO SCH (08:02)
[2017-08-01] MEDS: POTASSIUM CL 20 MEQ TAB PO SCH (08:02)
[2017-08-01] MEDS: RUXOLITINIB PHOSPHATE PO SCH ×3 (08:03→20:17)
[2017-08-01] MEDS ORDERED: Herbals/Supplements -Info Only PO SCH (09:00)
[2017-08-01] MEDS ORDERED: TESTOSTERONE IM 100 MG/ML SYRINGE IM SCH (09:00)
--- NOTE | 2017-08-01 10:35 | PDMN ---
Medical Necessity Medical necessity: change to IP; los>2mn for acute ischemic CHF with pulmonary edema and hypoxia, associated acute on chronic resp failure, chest pain, and acute on chronic renal failure; comorbid AML w/ anemia, thrombocytopenia, and htn; per progress note and order 07/31/17
--- NOTE | 2017-08-01 12:09 | SOAPPROG ---
SOAP Progress Note Assessment/Plan: Assessment: 1. 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 Anemia and thrombocytopenia due to #1 3. CAD 4. CHF 5. Acute on chronic renal failure, likely related to hypoperfusion His hematological disorder is stable. I don't think it is directly contributing to his current cardiac or renal issues, beyond the impact that the anemia is having. Plan: - agree w/ transfusion of RBCs today - continue jakafi 5 mg BID 08/01/17 12:07 Subjective: feels well. wants to go home. Objective: exam unchanged Vital Signs Temp Pulse Resp BP Pulse Ox 36.9 C 72 20 99/48 L 95 08/01/17 12:00 08/01/17 12:00 08/01/17 12:00 08/01/17 12:00 08/01/17 12:00 07/31/17 08/01/17 08/02/17 05:59 05:59 05:59 Intake Total 1000 Output Total 1810 Balance -810 PT 15.7 SEC (12.0-15.0) H 07/30/17 22:45 INR 1.25 (0.83-1.16) H 07/30/17 22:45 ICD10 Worksheet Patient Problems: Problems Problem Status Onset SINGH (acute kidney injury) Acute Anemia Acute Chest pain Acute Hypoxia Acute Thrombocytopenia Acute Acute coronary syndrome Acute CML (chronic myelocytic leukemia) Acute Elevated troponin Acute Elevated white blood cell count Acute NSTEMI (non-ST elevated myocardial infarction) Acute Palliative care encounter Acute chronic disease mgmt/transitional care Acute
--- NOTE | 2017-08-01 12:20 | SOAPPROG ---
SOAP Progress Note Assessment/Plan: Assessment: 1. SINGH. Etiology unclear. Appears volume up, not overdiuresed. DDx includes hemodynamic factors such as CHF, hyperviscosity. Also TLS although unlikely? Chk uric acid but P, K normal. Renal u/s to r/o obstruction and renal v. thrombosis. Mild ~1.2 g proteinuria, sig unclear. Lots of gran casts, makes atn more likely. Decrease lasix to QD. Check echo. Order labs for today. B/l creat 1.7 but was up to 2.2 in Sep. If not improving, discuss possible hydrea with onc. 2. Atypical CML. On AMILCAR inhibitor. No reports of SINGH with this. 3. Hypoxia. Appears volume related. Onc thinks hyperviscosity doubtful. Plan: 08/01/17 12:08/01/17 12:21 Subjective: Denies dyspnea, visual changes, chest pain. Wants to know why kidneys are failing. Objective: Vital Signs Temp Pulse Resp BP Pulse Ox 36.9 C 72 20 99/48 L 95 08/01/17 12:00 08/01/17 12:00 08/01/17 12:00 08/01/17 12:00 08/01/17 12:00 07/31/17 08/01/17 08/02/17 05:59 05:59 05:59 Intake Total 1000 Output Total 1810 Balance -810 PT 15.7 SEC (12.0-15.0) H 07/30/17 22:45 INR 1.25 (0.83-1.16) H 07/30/17 22:45 comfortable, on O2, in chair RRR, no m/g/r. JVD mid neck at 45 deg CTAB Abdom soft, spleen palpably, not markedly enlarged, no tenderness 1+ LE edema ICD10 Worksheet Patient Problems: Problems Problem Status Onset SINGH (acute kidney injury) Acute Anemia Acute Hypoxia Acute chronic disease mgmt/transitional care Acute NSTEMI (non-ST elevated myocardial infarction) Acute Chest pain Acute Elevated troponin Acute CML (chronic myelocytic leukemia) Acute Palliative care encounter Acute Acute coronary syndrome Acute Thrombocytopenia Acute Elevated white blood cell count Acute
--- NOTE | 2017-08-01 12:22 | HOSPPROG ---
Hospitalist Progress Note Assessment/Plan: First encounter with this patient Medically complex 81-year-old with a history of coronary artery disease (CABG and instent stenosis ) with ischemic cardiomyopathy, atypical AML and acute on chronic renal failure is admitted with chest pain and acute/chronic renal failure. s/p PRBC transfusion 07/31, 1 unit. Tolerated well #. Chest pain: Pain could certainly be ischemic in nature however given his renal failure and his complex coronary artery disease the case was discussed with his primary victims advocate clerk/specialist Dr. Espinal as well as Dr. Toribio. At this time it is felt that he would benefit from medical management only and would not recommend further angiography at this time. * Possible increase Imdur and Ranexa will defer to Cardiology * Monitor chest pain and address other medical issues. He is still having intermittent chest pain #. Acute ischemic congestive heart failure with pulmonary edema and hypoxia. He has acute on chronic respiratory failure associated with this. Chest x-ray was personally reviewed and appears to be more edema rather than pneumonia. Additionally patient does not have cough fever at this time. * Follow symptoms and oxygen needs * Lasix 40mg PO Daily #. Acute on chronic renal failure, appreciate Nephrology note. Etiology is likely multifactorial. * Follow renal function * Await workup outlined in nephrology note * CT pending #. 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 And likely not contributing significantly to his current issues however his white count is still quite elevated. Will monitor while in hospital, Oncology will follow up with outpatient. * Appreciate oncology consult will resume patient's outpatient chemotherapy #. Anemia, secondary to AML: s/p 1 unit transfused on 07/31. #. thrombocytopenia, no acute bleeding. recheck in am #. Hypertension: Blood pressure stable currently continue his current medications follow renal function #. Gout Plan: Per above Labs today are pending Lasix was restarted but will decreased to once daily after discussion with Nephrology Cards to see Patient will need additional midnight stay given acute congestive heart failure as well as multiple comorbidities noted above Subjective: Transfusion yesterday, tolerated well. Had PO Lasix 40mg yesterday. Still with intermittent chest pain. No Resp distress Objective: Vital Signs Temp Pulse Resp BP Pulse Ox 36.9 C 72 20 99/48 L 95 08/01/17 12:00 08/01/17 12:00 08/01/17 12:00 08/01/17 12:00 08/01/17 12:00 07/31/17 08/01/17 08/02/17 05:59 05:59 05:59 Intake Total 1000 Output Total 1810 Balance -810 PT 15.7 SEC (12.0-15.0) H 07/30/17 22:45 INR 1.25 (0.83-1.16) H 07/30/17 22:45 - Physical Exam Constitutional: chronically ill appearing Eyes: PERRL, EOMI Ears, Nose, Mouth, Throat: moist mucous membranes, hearing normal Cardiovascular: regular rate and rhythym, No edema Respiratory: rhonchi, No no respiratory distress, No no rales or rhonchi, No clear to auscultation Gastrointestinal: normoactive bowel sounds, soft, non-tender abdomen Skin: warm Neurologic: AAOx3 Psychiatric: interacting appropriately, not anxious, not encephalopathic ICD10 Worksheet Patient Problems: Problems Problem Status Onset SINGH (acute kidney injury) Acute Anemia Acute Chest pain Acute Hypoxia Acute Thrombocytopenia Acute Acute coronary syndrome Acute CML (chronic myelocytic leukemia) Acute Elevated troponin Acute Elevated white blood cell count Acute NSTEMI (non-ST elevated myocardial infarction) Acute Palliative care encounter Acute chronic disease mgmt/transitional care Acute
[2017-08-01 13:04] LABS: PLATELET COUNT 28 10^3/uL (150-400)
[2017-08-01] MEDS ORDERED: PERFLUTREN LIPID MICROSPHERES 1.1 MG/ML VIAL IV ONE (15:15)
--- NOTE | 2017-08-01 15:40 | ASMTCMCOM ---
CM Note CM Note Notes: Pt will d/c home independent w/out any needs. CM available for changes. Date Signed: 08/02/2017 01:35 PM Electronically Signed By:GRZEGORZ Marquez
--- NOTE | 2017-08-01 15:40 | ASMTCMCOM ---
CM Note CM Note Notes: Pt will d/c home independent w/out any needs. CM available for changes. Date Signed: 08/02/2017 01:35 PM Electronically Signed By:GRZEGORZ Marquez
--- NOTE | 2017-08-01 15:40 | ASMTCMCOM ---
CM Note CM Note Notes: Pt will d/c home independent w/out any needs. CM available for changes. Date Signed: 08/02/2017 01:35 PM Electronically Signed By:GRZEGORZ Marquez
--- NOTE | 2017-08-01 15:58 | PDCARPN ---
Cardiology Progress Note Chief Complaint: Chest pain Assessment/Plan: Assessment: 1. Episode of chest pain 2. CAD with hx of CABG and multiple PCI with hx of instent stenosis 3. Ischemic CM LVEF 35-40%, Apical akinesis 4. Diastolic CHF 5. Acute renal failure 6. CML with anemia and thrombocytopenia Plan: -would not increase ranolazine or nitroglycerin at this time in the absence of chest pain -recommend monitor overnight and if stable, discharge home, with out patient follow up next week -continue current dose of lasix 08/01/17 15:54 Subjective: MR. Altamirano admitted yesterday with chest pain in the setting of hx of CAD with hx of CABG adn multiple PCI with hx of instent stenosis who has been well managed by Dr. Solis Espinal. He is currently pain free. Reviewed/Discussed With: multidisciplinary team Time Spent With Patient: 30min Objective: Vital Signs (8 Hrs) Temp Pulse Resp BP Pulse Ox 08/01/17 15:17 37.1 C 80 16 106/54 L 92 08/01/17 12:00 36.9 C 72 20 99/48 L 95 Intake/Output (24 Hrs) 07/31/17 08/01/17 08/02/17 05:59 05:59 05:59 Intake Total 1000 Output Total 1810 425 Balance -810 -425 Intake: Oral (ml) 700 Packed Red Blood Cells ( 300 ml) Output: Urine (ml) 1810 425 Urinal 1810 425 Other: Weight 64.495 kg Number of Voids Urinal 3 2 Result Diagrams: 08/01/17 12:25 08/01/17 12:25 ICD10 Worksheet Patient Problems: Problems Problem Status Onset SINGH (acute kidney injury) Acute Anemia Acute Hypoxia Acute chronic disease mgmt/transitional care Acute NSTEMI (non-ST elevated myocardial infarction) Acute Chest pain Acute Elevated troponin Acute CML (chronic myelocytic leukemia) Acute Palliative care encounter Acute Acute coronary syndrome Acute Thrombocytopenia Acute Elevated white blood cell count Acute
--- NOTE | 2017-08-01 18:40 | ECHO ---
[email or web address] [address] [address] Main: [phone] Fax: Transthoracic Echocardiogram Name: ZANA KIRBY MR#: [id number] Study Date: 08/01/2017 Study Time: 02:53 PM Date of : 1935 Age: 81 year(s) Height: 162.6 cm (64 in.) Weight: 64.41 kg (142 lb.) BSA: 1.69 m2 Gender: Male Examination: Limited Echo Indication: limited echocardiogram for hypoxia, SINGH, assess LVFX, PASP and IVC collapse Image Quality: Contrast: 0.165 mg I.V. dose of Definity was administered to improve endocardial border definition. Requested by: Eyad Lemon BP: 106 mmHg/54 mmHg Heart Rate: Rhythm: Normal sinus rhythm Indication: limited echocardiogram for hypoxia, SINGH, assess LVFX, PASP and IVC collapse Procedure Staff Sales And Customer Relations Rep: Mariama Barba Reading Physician: Adair Silver Requesting Provider: Conclusions: Normal size left ventricle. Concentric LV hypertrophy. Mildly reduced systolic LV function. EF is 44 %. There is a large area of apical akinesis consistent with old VT. No LV apical thrombus. Normal RV function. Moderate mitral annular calcification. Right ventricular systolic pressure measures 40mmHg. The IVC is normal sized. Measurements: Chambers Valvular Assessment AV/MV Valvular Assessment TV/PV Normal Normal Normal Name Value Range Name Value Range Name Value Range IVSd (2D): 1.4 cm (0.6 cm-1.1 TR Vmax: 2.96 mm/s ( - ) cm) TR PGmax: 35 mmHg ( - ) LVDd (2D): 5.2 cm (4.2 cm-5.9 syst. PAP: 40 mmHg ( - ) cm) LVDs (2D): 4.0 cm (2.1 cm-4 cm) LVPWd (2D): 1.3 cm (0.6 cm-1 cm) LVEF (BP): 44 % (>=55 %) Continued Measurements: Valvular Assessment TV/PV Patient: ZANA KIRBY Study Date: 08/01/2017 Page 1 of 2 02:53 PM Name Value CVP (est.): 5 mmHg Findings: Left Ventricle: Normal size left ventricle. Concentric LV hypertrophy. Mildly reduced systolic LV function. EF is 44 %. There is a large area of apical akinesis consistent with old VT. Regional wall motion abnormality noted. No LV apical thrombus. Right Ventricle: Normal RV function. Mitral Valve: Moderate mitral annular calcification. There is mild thickening of the mitral valve leaflets. Aortic Valve: The aortic valve is tri-leaflet. mild calcification. Tricuspid Valve: Mild tricuspid regurgitation is present. Right ventricular systolic pressure measures 40mmHg. The pulmonary artery pressure is mild to moderately increased. IVC: The IVC is normal sized. There is greater jax 50% respiratory excursion. (No Signature Object) Patient: ZANA KIRBY Study Date: 08/01/2017 Page 2 of 2 02:53 PM [id number]
--- NOTE | 2017-08-01 18:40 | ECHO ---
[email or web address] [address] [address] Main: [phone] Fax: Transthoracic Echocardiogram Name: ZANA KIRBY MR#: [id number] Study Date: 08/01/2017 Study Time: 02:53 PM Date of : 1935 Age: 81 year(s) Height: 162.6 cm (64 in.) Weight: 64.41 kg (142 lb.) BSA: 1.69 m2 Gender: Male Examination: Limited Echo Indication: limited echocardiogram for hypoxia, SINGH, assess LVFX, PASP and IVC collapse Image Quality: Contrast: 0.165 mg I.V. dose of Definity was administered to improve endocardial border definition. Requested by: Eyad Lemon BP: 106 mmHg/54 mmHg Heart Rate: Rhythm: Normal sinus rhythm Indication: limited echocardiogram for hypoxia, SINGH, assess LVFX, PASP and IVC collapse Procedure Staff Radar Systems Engineer: Mariama Barba Reading Physician: Adair Silver Requesting Provider: Conclusions: Normal size left ventricle. Concentric LV hypertrophy. Mildly reduced systolic LV function. EF is 44 %. There is a large area of apical akinesis consistent with old [place]. No LV apical thrombus. Normal RV function. Moderate mitral annular calcification. Right ventricular systolic pressure measures 40mmHg. The IVC is normal sized. Measurements: Chambers Valvular Assessment AV/MV Valvular Assessment TV/PV Normal Normal Normal Name Value Range Name Value Range Name Value Range IVSd (2D): 1.4 cm (0.6 cm-1.1 TR Vmax: 2.96 mm/s ( - ) cm) TR PGmax: 35 mmHg ( - ) LVDd (2D): 5.2 cm (4.2 cm-5.9 syst. PAP: 40 mmHg ( - ) cm) LVDs (2D): 4.0 cm (2.1 cm-4 cm) LVPWd (2D): 1.3 cm (0.6 cm-1 cm) LVEF (BP): 44 % (>=55 %) Continued Measurements: Valvular Assessment TV/PV Patient: ZANA KIRBY Study Date: 08/01/2017 Page 1 of 2 02:53 PM Name Value CVP (est.): 5 mmHg Findings: Left Ventricle: Normal size left ventricle. Concentric LV hypertrophy. Mildly reduced systolic LV function. EF is 44 %. There is a large area of apical akinesis consistent with old [place]. Regional wall motion abnormality noted. No LV apical thrombus. Right Ventricle: Normal RV function. Mitral Valve: Moderate mitral annular calcification. There is mild thickening of the mitral valve leaflets. Aortic Valve: The aortic valve is tri-leaflet. mild calcification. Tricuspid Valve: Mild tricuspid regurgitation is present. Right ventricular systolic pressure measures 40mmHg. The pulmonary artery pressure is mild to moderately increased. IVC: The IVC is normal sized. There is greater jax 50% respiratory excursion. (No Signature Object) Patient: ZANA KIRBY Study Date: 08/01/2017 Page 2 of 2 02:53 PM [id number]
--- NOTE | 2017-08-01 18:40 | ECHO ---
[email or web address] [address] [address] Main: [phone] Fax: Transthoracic Echocardiogram Name: ZANA KIRBY MR#: [id number] Study Date: 08/01/2017 Study Time: 02:53 PM Date of : 1935 Age: 81 year(s) Height: 162.6 cm (64 in.) Weight: 64.41 kg (142 lb.) BSA: 1.69 m2 Gender: Male Examination: Limited Echo Indication: limited echocardiogram for hypoxia, SINGH, assess LVFX, PASP and IVC collapse Image Quality: Contrast: 0.165 mg I.V. dose of Definity was administered to improve endocardial border definition. Requested by: Eyad Lemon BP: 106 mmHg/54 mmHg Heart Rate: Rhythm: Normal sinus rhythm Indication: limited echocardiogram for hypoxia, SINGH, assess LVFX, PASP and IVC collapse Procedure Staff Rubber Mold Maker: Mariama Barba Reading Physician: Adair Silver Requesting Provider: Conclusions: Normal size left ventricle. Concentric LV hypertrophy. Mildly reduced systolic LV function. EF is 44 %. There is a large area of apical akinesis consistent with old [place]. No LV apical thrombus. Normal RV function. Moderate mitral annular calcification. Right ventricular systolic pressure measures 40mmHg. The IVC is normal sized. Measurements: Chambers Valvular Assessment AV/MV Valvular Assessment TV/PV Normal Normal Normal Name Value Range Name Value Range Name Value Range IVSd (2D): 1.4 cm (0.6 cm-1.1 TR Vmax: 2.96 mm/s ( - ) cm) TR PGmax: 35 mmHg ( - ) LVDd (2D): 5.2 cm (4.2 cm-5.9 syst. PAP: 40 mmHg ( - ) cm) LVDs (2D): 4.0 cm (2.1 cm-4 cm) LVPWd (2D): 1.3 cm (0.6 cm-1 cm) LVEF (BP): 44 % (>=55 %) Continued Measurements: Valvular Assessment TV/PV Patient: ZANA KIRBY Study Date: 08/01/2017 Page 1 of 2 02:53 PM Name Value CVP (est.): 5 mmHg Findings: Left Ventricle: Normal size left ventricle. Concentric LV hypertrophy. Mildly reduced systolic LV function. EF is 44 %. There is a large area of apical akinesis consistent with old [place]. Regional wall motion abnormality noted. No LV apical thrombus. Right Ventricle: Normal RV function. Mitral Valve: Moderate mitral annular calcification. There is mild thickening of the mitral valve leaflets. Aortic Valve: The aortic valve is tri-leaflet. mild calcification. Tricuspid Valve: Mild tricuspid regurgitation is present. Right ventricular systolic pressure measures 40mmHg. The pulmonary artery pressure is mild to moderately increased. IVC: The IVC is normal sized. There is greater jax 50% respiratory excursion. (No Signature Object) Patient: ZANA KIRBY Study Date: 08/01/2017 Page 2 of 2 02:53 PM [id number]
[2017-08-01] MEDS: CHOLECALCIFEROL VIT D3 1,000 UNITS TAB PO SCH (20:15)
[2017-08-01] MEDS: ISOSORBIDE MONONITRATE 30 MG TAB.SR PO SCH (20:15)
[2017-08-01] MEDS: GABAPENTIN 400 MG CAP PO SCH (20:15)
[2017-08-01] MEDS: FINASTERIDE 5 MG TAB PO SCH (20:16)
[2017-08-01] MEDS: ASPIRIN 81 MG CHEWABLE TAB PO SCH (20:16)
[2017-08-01] MEDS: TAMSULOSIN HCL 0.4 MG CAP PO SCH (20:16)
[2017-08-01] MEDS: ROSUVASTATIN CALCIUM 20 MG TAB PO SCH (20:16)
[2017-08-02 06:15] LABS: PLATELET COUNT 23 10^3/uL (150-400)
[2017-08-02 07:59] VITALS: O2SAT 98
[2017-08-02] MEDS: RANOLAZINE 500 MG TAB.ER PO SCH (08:23)
[2017-08-02] MEDS: NITROGLYCERIN 0.4 MG/HR PATCH TD SCH (08:24)
[2017-08-02] MEDS: POTASSIUM CL 20 MEQ TAB PO SCH (08:27)
[2017-08-02] MEDS: CARVEDILOL 6.25 MG TAB PO SCH (08:27)
[2017-08-02] MEDS: FOLIC ACID 1 MG TAB PO SCH (08:28)
[2017-08-02] MEDS: RUXOLITINIB PHOSPHATE PO SCH (08:29)
[2017-08-02] MEDS ORDERED: FUROSEMIDE 40 MG TAB PO SCH (09:00)
[2017-08-02 10:51] VITALS: BP 121/56; PULSE 72; RESP 19; TEMP 98.1
--- NOTE | 2017-08-02 10:51 | SOAPPROG ---
SUBHASH Progress Note Assessment/Plan: Assessment:Plan: CKD-volume status much better than when I saw him as outpatient -I suspect the recent lower readings were indicative of his volume status at that time -I would use his current weight as target for him -I think his current creatinine of 2.4 represents his baseline when he is not overloaded -he needs to follow daily weights at home -if he gains 5# he will need to respond with increase frequency of diuretic -he should continue his current dose of lasix Heme-WBC 183 -Rx per Heme 08/02/17 10:50 Subjective: Up, getting ready for shower Objective: Vital Signs Temp Pulse Resp BP Pulse Ox 36.8 C 114 H 16 102/54 L 98 08/02/17 07:54 08/02/17 07:54 08/02/17 07:54 08/02/17 07:54 08/02/17 07:54 Laboratory Results 08/02/17 05:20 08/02/17 05:20 08/01/17 08/02/17 08/03/17 05:59 05:59 05:59 Intake Total 1000 500 Output Total 1810 775 125 Balance -810 -275 -125 PT 15.7 SEC (12.0-15.0) H 07/30/17 22:45 INR 1.25 (0.83-1.16) H 07/30/17 22:45 Physical Exam - Physical Exam General Appearance: alert, no apparent distress, thin EENT: normal ENT inspection Neck: normal inspection Respiratory: lungs clear, normal breath sounds, No respiratory distress Cardiac/Chest: regular rate, rhythm, No systolic murmur Abdomen: normal bowel sounds, non-tender Skin: normal color, warm/dry Extremities: No swelling Neuro/Psych: no motor/sensory deficits, alert, normal mood/affect ICD10 Worksheet Patient Problems: Problems Problem Status Onset SINGH (acute kidney injury) Acute Anemia Acute Chest pain Acute Hypoxia Acute Thrombocytopenia Acute Acute coronary syndrome Acute CML (chronic myelocytic leukemia) Acute Elevated troponin Acute Elevated white blood cell count Acute NSTEMI (non-ST elevated myocardial infarction) Acute Palliative care encounter Acute chronic disease mgmt/transitional care Acute
--- NOTE | 2017-08-02 13:06 | PDDCSUM ---
Discharge Summary Discharge Summary: 81-year-old with a history of coronary artery disease (CABG and instent stenosis ) with ischemic cardiomyopathy, atypical AML and acute on chronic renal failure is admitted with chest pain and acute/chronic renal failure. s/p PRBC transfusion 07/31, 1 unit. Tolerated well Lasix has been decreased to 40mg daily weight on discharge is 64.8kg and this is likely his baseline. He should have daily weights and increase diuretics if his weight goes up above 5 #'s Cr on discharge is 2.4. This is likely his baseline TTE c/w EF of 44% and Apical Akinesis He is no longer symptomatic and ready for discharge. He will f/u with Cards next wee DDZ: #. Chest pain: Pain could certainly be ischemic in nature however given his renal failure and his complex coronary artery disease the case was discussed with his primary [place] management specialist Dr. Espinal as well as Dr. Toribio. At this time it is felt that he would benefit from medical management only and would not recommend further angiography at this time. #. Acute ischemic congestive heart failure with pulmonary edema and hypoxia. He has acute on chronic respiratory failure associated with this. Chest x-ray was personally reviewed and appears to be more edema rather than pneumonia. Additionally patient does not have cough fever at this time. * Lasix 40mg PO Daily #. Acute on chronic renal failure, appreciate Nephrology note. Etiology is likely multifactorial. #. 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 And likely not contributing significantly to his current issues however his white count is still quite elevated. patient's outpatient chemotherapy was resumed. Will cont to f/u with Onc in an outpatient setting #. Anemia, secondary to AML: s/p 1 unit transfused on 07/31. #. thrombocytopenia, no acute bleeding. Counts dropping. Will f/u with Onc in an outpatient setting #. Hypertension: Blood pressure stable currently continue his current medications follow renal function #. Gout Exam: elderly male VSS NAD AAOX3 RRR DECRASED LUNG SOUNDS S/NT/ND TRACE EDEMA MEDS: SEE MED REC TOTAL TIME SPENT ON DISCHARGE IS 35 MINS
--- NOTE | 2017-08-02 15:55 | ASDISCHSUM ---
Discharge Information Plan Status:Home with No Needs Medically Cleared to Leave:08/01/2017 Discharge Date:08/02/2017 02:39 PM CM D/C Disposition:Home, Routine, Self-Care ADT D/C Disposition:Home, Routine, Self-Care Projected Discharge Date:08/02/2017 12:00 AM Transportation at D/C:Family Discharge Delay Reason: Follow-Up Date:08/02/2017 12:00 AM Discharge Slot: Final Diagnosis: Placement Information Patient Contact Information Contact Name:MARLAELVINRAY Relationship:Son Address: Work Phone: [facility]:[place] Alternate Phone: [facility]/[employer] Code:[place] Email: Financial Information Financial Class: Primary Plan Desc:MEDICARE INPATIENT Primary Plan Number:[id number] Secondary Plan Desc:[facility] Secondary Plan Number:[id number] Assessment Information [facility] CM Progress Note CM Note CM Note Notes: Patient admitted for chest pain and SINGH d/t diuretic use. Has a complex cardiac history including CAD and CABG. Patient deeply involved in coversation with this afternoon. I spoke with his RN who says he is ambulating independently. No PT/OT evals were ordered; when patient discharged from [facility] in 06/10, he went home with his . No discharge needs anticipated; CM available if needs change. Date Signed: 07/31/2017 03:32 PM Electronically Signed By:Helen Shi RN [facility] CM Progress Note CM Note CM Note Notes: Pt will d/c home independent w/out any needs. CM available for changes. Date Signed: 08/02/2017 01:35 PM Electronically Signed By:GRZEGORZ Marquez Intervention Information Intervention Type:*FUENTES-Signed Date of Service:07/31/2017 11:37 AM Patient Type:Observation Staff Member:Ashely Hartley Hours: Discipline: Severity: Comment: Intervention Type:*IM-Signed Date of Service:08/02/2017 02:41 PM Patient Type:Inpatient Staff Member:Ashely Hartley Hours: Discipline: Severity: Comment:
--- NOTE | 2017-08-02 15:55 | ASDISCHSUM ---
Discharge Information Plan Status:Home with No Needs Medically Cleared to Leave:08/01/2017 Discharge Date:08/02/2017 02:39 PM CM D/C Disposition:Home, Routine, Self-Care ADT D/C Disposition:Home, Routine, Self-Care Projected Discharge Date:08/02/2017 12:00 AM Transportation at D/C:Family Discharge Delay Reason: Follow-Up Date:08/02/2017 12:00 AM Discharge Slot: Final Diagnosis: Placement Information Patient Contact Information Contact Name:MARLAELVINRAY Relationship:Son Address: Work Phone: [facility]:[place] Alternate Phone: [facility]/[employer] Code:[place] Email: Financial Information Financial Class: Primary Plan Desc:MEDICARE INPATIENT Primary Plan Number:[id number] Secondary Plan Desc:[facility] Secondary Plan Number:[id number] Assessment Information [facility] CM Progress Note CM Note CM Note Notes: Patient admitted for chest pain and SINGH d/t diuretic use. Has a complex cardiac history including CAD and CABG. Patient deeply involved in coversation with this afternoon. I spoke with his RN who says he is ambulating independently. No PT/OT evals were ordered; when patient discharged from [facility] in 06/10, he went home with his . No discharge needs anticipated; CM available if needs change. Date Signed: 07/31/2017 03:32 PM Electronically Signed By:Helen Shi RN [facility] CM Progress Note CM Note CM Note Notes: Pt will d/c home independent w/out any needs. CM available for changes. Date Signed: 08/02/2017 01:35 PM Electronically Signed By:GRZEGORZ Marquez Intervention Information Intervention Type:*FUENTES-Signed Date of Service:07/31/2017 11:37 AM Patient Type:Observation Staff Member:Ashely Hartley Hours: Discipline: Severity: Comment: Intervention Type:*IM-Signed Date of Service:08/02/2017 02:41 PM Patient Type:Inpatient Staff Member:Ashely Hartley Hours: Discipline: Severity: Comment:
--- NOTE | 2017-08-02 15:55 | ASDISCHSUM ---
Discharge Information Plan Status:Home with No Needs Medically Cleared to Leave:08/01/2017 Discharge Date:08/02/2017 02:39 PM CM D/C Disposition:Home, Routine, Self-Care ADT D/C Disposition:Home, Routine, Self-Care Projected Discharge Date:08/02/2017 12:00 AM Transportation at D/C:Family Discharge Delay Reason: Follow-Up Date:08/02/2017 12:00 AM Discharge Slot: Final Diagnosis: Placement Information Patient Contact Information Contact Name:MARLAELVINRAY Relationship:Son Address: Work Phone: [facility]:[place] Alternate Phone: [facility]/[employer] Code:[place] Email: Financial Information Financial Class: Primary Plan Desc:MEDICARE INPATIENT Primary Plan Number:[id number] Secondary Plan Desc:[facility] Secondary Plan Number:[id number] Assessment Information [facility] CM Progress Note CM Note CM Note Notes: Patient admitted for chest pain and SINGH d/t diuretic use. Has a complex cardiac history including CAD and CABG. Patient deeply involved in coversation with this afternoon. I spoke with his RN who says he is ambulating independently. No PT/OT evals were ordered; when patient discharged from [facility] in 06/10, he went home with his . No discharge needs anticipated; CM available if needs change. Date Signed: 07/31/2017 03:32 PM Electronically Signed By:Helen Shi RN [facility] CM Progress Note CM Note CM Note Notes: Pt will d/c home independent w/out any needs. CM available for changes. Date Signed: 08/02/2017 01:35 PM Electronically Signed By:GRZEGORZ Marquez Intervention Information Intervention Type:*FUENTES-Signed Date of Service:07/31/2017 11:37 AM Patient Type:Observation Staff Member:Ashely Hartley Hours: Discipline: Severity: Comment: Intervention Type:*IM-Signed Date of Service:08/02/2017 02:41 PM Patient Type:Inpatient Staff Member:Ashely Hartley Hours: Discipline: Severity: Comment:
== END 2017-08-02 14:39 | disposition home or self-care (01) | DRG 313 ==
LOC: INTOOBSV 23:22 → F2W 07-31 00:21 → OBSVTOIN 07-31 17:03
PROVIDERS: ADMIT Family Medicine; ATTEND Family Medicine
PROC: 30233N1 Transfusion of Nonautologous Red Blood Cells into Peripheral Vein, Percutaneous Approach (ICD-10-PCS; principal; 2017-07-31)
DX: R07.9 Chest pain, unspecified (principal); J96.21 Acute and chronic respiratory failure with hypoxia; N17.9 Acute kidney failure, unspecified; C92.20 Atypical chronic myeloid leukemia, BCR/ABL-negative, not having achieved remission; I13.0 Hypertensive heart and chronic kidney disease with heart failure and stage 1 through stage 4 chronic kidney disease, or unspecified chronic kidney disease; I50.42 Chronic combined systolic (congestive) and diastolic (congestive) heart failure; I25.118 Atherosclerotic heart disease of native coronary artery with other forms of angina pectoris; I25.5 Ischemic cardiomyopathy; N18.3 Chronic kidney disease, stage 3 (moderate); D69.6 Thrombocytopenia, unspecified; M10.9 Gout, unspecified; D64.89 Other specified anemias; N40.0 Benign prostatic hyperplasia without lower urinary tract symptoms; Z95.1 Presence of aortocoronary bypass graft; Z86.73 Personal history of transient ischemic attack (TIA), and cerebral infarction without residual deficits
CPT/HCPCS: A9540; C8924; J1071; J1642; J1650; J1940; J2543; J3370; P9016; Q9957